=== PATIENT | female | born 1990 | race African-American/Black ===

== ENCOUNTER 2018-04-17 12:41 | Emergency (ER) | payer OTHER, SELFPAY ==
--- NOTE | 2018-04-17 14:09 | ER ---
Nurse's Notes [facility] Name: Deep Deng Age: 28 yrs Sex: Female : 1990 Arrival Date: 04/17/2018 Time: 12:43 Bed 6 Private MD: None, None Diagnosis: Cough;Acute upper respiratory infection, unspecified Presentation: 04/17 12:47 Presenting complaint: Patient states: i started having congestion x 2 days; cough and hj body aches; reports fever yesterday; reports core throat; took Robitussin today;. Transition of care: patient was not received from another setting of care. Resp Distress? No respiratory distress is noted at this time. Onset of symptoms was April 17, 2018. Risk Assessment: Do you want to hurt yourself or someone else? Patient reports no desire to harm self or others. Initial Sepsis Screen: Does the patient meet any 2 criteria? No. Patient's initial sepsis screen is negative. Does the patient have a suspected source of infection? No. Patient's initial sepsis screen is negative. Care prior to arrival: None. 12:47 Method Of Arrival: Ambulatory 12:47 Acuity: CHRISTIAN 4 hj Triage Assessment: 12:49 General: Appears in no apparent distress. uncomfortable, Behavior is calm, cooperative, hj appropriate for age. Pain: Complains of pain in bosy aches. 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 - Social history:: Smoking status: Patient/guardian denies using tobacco, Patient/guardian denies using alcohol. - Ebola Screening: : Patient negative for fever greater than or equal to 101.5 degrees Fahrenheit, and additional compatible Ebola Virus Disease symptoms Patient denies exposure to infectious person Patient denies travel to an Ebola-affected area in the 21 days before illness onset. - Family history:: not pertinent. - Hospitalizations: : No recent hospitalization is reported. Screenin:50 Abuse screen: Denies threats or abuse. Denies injuries from another. Nutritional hj screening: No deficits noted. Tuberculosis screening: No symptoms or risk factors identified. Fall Risk None identified. Assessment: 12:50 Cardiovascular: Capillary refill < 3 seconds Patient's skin is warm and dry. hj 13:22 General: Appears in no apparent distress. Behavior is calm, cooperative, appropriate tw2 for age. Neuro: Level of Consciousness is awake, alert, obeys commands, Oriented to person, place, time, situation. Cardiovascular: Heart tones S1 S2 Patient's skin is warm and dry. Respiratory: Airway is patent Respiratory effort is even, unlabored, Respiratory pattern is regular, symmetrical, Breath sounds are clear bilaterally. Respiratory: Reports cough that is. GI: No signs and/or symptoms were reported involving the gastrointestinal system. : No signs and/or symptoms were reported regarding the genitourinary system. EENT: Reports nasal congestion nasal discharge. Derm: No signs and/or symptoms reported regarding the dermatologic system. Musculoskeletal: Range of motion: intact in all extremities. 13:57 Reassessment: Patient appears in no apparent distress at this time. No changes from tw2 previously documented assessment. Patient and/or family updated on plan of care and expected duration. Pain level reassessed. Patient is alert, oriented x 3, equal unlabored respirations, skin warm/dry/pink. Vital Signs: 12:50 BP 147 / 69; Pulse 90; Resp 18; Temp 100.4(O); Pulse Ox 100% on R/A; Weight 127.01 kg; hj Height 5 ft. 7 in. (170.18 cm); Pain 4/10; 13:56 BP 147 / 90; Pulse 81; Resp 17; Pulse Ox 98% on R/A; tw2 13:57 Temp 98.6(O); tw2 12:50 Body Mass Index 43.86 (127.01 kg, 170.18 cm) ED Course: 12:43 Patient arrived in ED. sb2 12:43 None, None is Private Physician. sb2 12:49 Triage completed. hj 12:50 Arm band placed on right wrist. hj 12:52 Patient has correct armband on for positive identification. Bed in low position. Call light in reach. Side rails up X 1. 13:10 Tay Lorenzo MD is Attending Physician. rn 13:17 Laura Hernandez RN is Primary Nurse. tw2 14:11 No provider procedures requiring assistance completed. Patient did not have IV access tw2 during this emergency room visit. Administered Medications: No medications were administered Outcome: 14:08 Discharge ordered by . rn 14:11 Discharged to home ambulatory. tw2 14:11 Condition: stable 14:11 Discharge instructions given to patient, Instructed on discharge instructions, follow up and referral plans. Demonstrated understanding of instructions, follow-up care. 14:12 Patient left the ED. tw2 Signatures: Tay Lorenzo MD MD rn Joaquin, Henry, RN RN hj Wise, Tara, RN RN tw2 Funmi Payton sb2 Corrections: (The following items were deleted from the chart) 12:52 12:50 Pulse 90bpm; Resp 18bpm; Pulse Ox 100% RA; Temp 100.4F Oral; 127.01 kg; Height 5 hj ft. 7 in.; BMI: 43.8; Pain 4/10; hj
--- NOTE | 2018-04-17 14:09 | EDPHYS ---
Physician Documentation [facility] Name: Deep Deng Age: 28 yrs Sex: Female : 1990 Arrival Date: 04/17/2018 Time: 12:43 Bed 6 Private MD: None, None ED Physician Tay Lorenzo HPI: 04/17 14:00 This 28 yrs old Black Female presents to ER via Ambulatory with complaints of Painful rn Cough, Congestion. 14:00 The patient or guardian reports cough. Onset: The symptoms/episode began/occurred 2 rn day(s) ago. Severity of symptoms: At their worst the symptoms were mild, in the emergency department the symptoms are unchanged. Modifying factors: The symptoms are alleviated by nothing, the symptoms are aggravated by nothing. Associated signs and symptoms: Pertinent positives: fever, rhinorrhea, sore throat. The patient has experienced similar episodes in the past. The patient has not recently seen a physician. 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 - Social history:: Smoking status: Patient/guardian denies using tobacco, Patient/guardian denies using alcohol. - Ebola Screening: : Patient negative for fever greater than or equal to 101.5 degrees Fahrenheit, and additional compatible Ebola Virus Disease symptoms Patient denies exposure to infectious person Patient denies travel to an Ebola-affected area in the 21 days before illness onset. - Family history:: not pertinent. - Hospitalizations: : No recent hospitalization is reported. ROS: 14:00 Constitutional: Negative for weight loss Eyes: Negative for injury, pain, redness, and supervisor modern languages, Neck: Negative for injury, pain, and swelling, Cardiovascular: Negative for chest pain, palpitations, and edema, Respiratory: Negative for wheezing, and pleuritic chest pain, Abdomen/GI: Negative for abdominal pain, nausea, vomiting, diarrhea, and constipation, MS/Extremity: Negative for injury and deformity, Skin: Negative for injury, rash, and discoloration, Neuro: Negative for headache, weakness, numbness, tingling, and seizure. Exam: 14:00 Constitutional: This is a well developed, well nourished patient who is awake, alert, rn and in no acute distress. Head/Face: Normocephalic, atraumatic. Eyes: Pupils equal round and reactive to light, extra-ocular motions intact. Lids and lashes normal. Conjunctiva and sclera are non-icteric and not injected. Cornea within normal limits. Periorbital areas with no swelling, redness, or edema. ENT: mild pharyngeal erythema Neck: Trachea midline, no thyromegaly or masses palpated, and no cervical lymphadenopathy. Supple, full range of motion without nuchal rigidity, or vertebral point tenderness. No Meningismus. Abdomen/GI: soft, non-tender Skin: Warm, dry with normal turgor. Normal color with no rashes, no lesions, and no evidence of cellulitis. MS/ Extremity: Pulses equal, no cyanosis. Neurovascular intact. Full, normal range of motion. Equal circumference. Neuro: Awake and alert, GCS 15, oriented to person, place, time, and situation. Vital Signs: 12:50 BP 147 / 69; Pulse 90; Resp 18; Temp 100.4(O); Pulse Ox 100% on R/A; Weight 127.01 kg; hj Height 5 ft. 7 in. (170.18 cm); Pain 4/10; 13:56 BP 147 / 90; Pulse 81; Resp 17; Pulse Ox 98% on R/A; tw2 13:57 Temp 98.6(O); tw2 12:50 Body Mass Index 43.86 (127.01 kg, 170.18 cm) hj MDM: 13:10 Patient medically screened. rn 14:00 Differential Diagnosis: Bronchitis Influenza Upper Respiratory Infection Viral rn Syndrome. Data reviewed: vital signs, nurses notes, lab test result(s), and as a result, I will discharge patient. Counseling: I had a detailed discussion with the patient and/or guardian regarding: the historical points, exam findings, and any diagnostic results supporting the discharge/admit diagnosis, lab results, the need for outpatient follow up, to return to the emergency department if symptoms worsen or persist or if there are any questions or concerns that arise at home. Special discussion: I discussed with the patient/guardian in detail that at this point there is no indication for admission to the hospital. It is understood, however, that if the symptoms persist or worsen the patient needs to return immediately for re-evaluation. 04/17 12:52 Order name: Flu; Complete Time: 13:23 04/17 12:52 Order name: Strep; Complete Time: 13:23 04/17 13:19 Order name: Throat Culture EDMS Administered Medications: No medications were administered Disposition: 04/17/18 14:08 Discharged to Home. Impression: Cough, Acute upper respiratory infection, unspecified. - Condition is Stable. - Discharge Instructions: Upper Respiratory Infection, Adult, Viral Respiratory Infection, Form - Return To Work. - Medication Reconciliation Form, Thank You Letter, Antibiotic Education, Prescription Opioid Use, Work release form form. - Follow up: Private Physician; When: As needed; Reason: Recheck today's complaints, Re-evaluation by your physician. - Problem is an ongoing problem. - Symptoms have improved. Signatures: Dispatcher [employer] EDMS Tay Lorenzo MD MD rn Joaquin, Henry, RN RN hj Wise, Tara, RN RN tw2 Corrections: (The following items were deleted from the chart) 14:03 14:00 Constitutional: This is a well developed, well nourished patient who is awake, rn alert, and in no acute distress. Head/Face: Normocephalic, atraumatic. Eyes: Pupils equal round and reactive to light, extra-ocular motions intact. Lids and lashes normal. Conjunctiva and sclera are non-icteric and not injected. Cornea within normal limits. Periorbital areas with no swelling, redness, or edema. ENT: mild pharyngeal erythema Neck: Trachea midline, no thyromegaly or masses palpated, and no cervical lymphadenopathy. Supple, full range of motion without nuchal rigidity, or vertebral point tenderness. No Meningismus. Abdomen/GI: soft, non-tender Skin: Warm, dry with normal turgor. Normal color with no rashes, no lesions, and no evidence of cellulitis. MS/ Extremity: Pulses equal, no cyanosis. Neurovascular intact. Full, normal range of motion. Equal circumference. rn 14:12 14:08 04/17/2018 14:08 Discharged to Home. Impression: Cough; Acute upper respiratory tw2 infection, unspecified. Condition is Stable. Discharge Instructions: Form - Return To Work. Forms are Medication Reconciliation Form, Thank You Letter, Antibiotic Education, Prescription Opioid Use. Follow up: Private Physician; When: As needed; Reason: Recheck today's complaints, Re-evaluation by your physician. Problem is an ongoing problem. Symptoms have improved. rn
[2018-04-17 17:05] VITALS: BP 147/90; O2SAT 98
[2018-04-17 17:06] VITALS: TEMP 98.6
== END 2018-04-17 14:12 | disposition home or self-care (01) ==
LOC: ER 12:41
DX: J06.9 Acute upper respiratory infection, unspecified (principal)
CPT/HCPCS: 87070; 87081; 87804; 99281

== ENCOUNTER 2018-05-01 22:35 | Emergency (ER) | payer OTHER ==
--- OUTSIDE RECORDS SUMMARY | 2018-05-01 22:37 | XMS REPORT ---
:1990 [facility] Address [address] [place] [address] [address] [place] [address] Care Team Providers Name Role Phone Unavailable Unavailable Unavailable Problems This patient has no known problems. Allergies, Adverse Reactions, Alerts This patient has no known allergies or adverse reactions. Medications This patient has no known medications.
[2018-05-01 23:53] LABS: Absolute Lymphocytes (CBC) 2.9 K/uL (0.7-4.9); Absolute Monocytes 0.7 K/uL (0.1-1.3); Absolute Neutrophil 5.9 K/uL (1.8-8.0); Basophils % 0.4 % (0-1.3); Eosinophils % 3.9 % (0-4.4); Hematocrit 34.2 % (36.0-45.0); Lymphocytes % 29.2 % (15.3-44.8); MPV 10.4 fL (7.6-11.3); Monocytes % 6.8 % (3.3-12.3); RBC Red Blood Cell Count 4.03 M/uL (3.86-4.86)
[2018-05-02 00:02] LABS: Protime INR 1.03
[2018-05-02 00:15] LABS: ALT/SGPT 30 U/L (12-78); AST/SGOT 15 U/L (15-37); Albumin 2.9 g/dL (3.4-5.0); Alkaline Phosphatase 119 U/L (45-117); BUN Blood Urea Nitrogen 18 mg/dL (7-18); Bicarbonate 25 mmol/L (21-32); Bilirubin Direct 0.1 mg/dL (0-0.2); Bilirubin Total 0.2 mg/dL (0.2-1.0); Glucose Level 91 mg/dL (74-106); Magnesium 1.9 mg/dL (1.8-2.4); NT PRO-BNP 23 pg/mL (<125); Potassium 3.5 mmol/L (3.5-5.1); Protein, Total 6.4 g/dL (6.4-8.2); Sodium Level 141 mmol/L (136-145); Troponin (Emerg Dept Use Only) < 0.02 ng/mL (0.0-0.045)
--- NOTE | 2018-05-02 01:12 | ER ---
Nurse's Notes [facility] Name: Deep Deng Age: 28 yrs Sex: Female : 1990 Arrival Date: 05/01/2018 Time: 22:38 Bed 28 Private MD: Diagnosis: Chest pain, unspecified Presentation: 05/01 22:44 Presenting complaint: Patient states: Intermittent chest pain that began today; States lp1 "I feel the pain go down my chest when I take a deep breath"; Denies any nausea, vomiting, shortness of breath. Transition of care: patient was not received from another setting of care. Onset of symptoms was May 01, 2018. Risk Assessment: Do you want to hurt yourself or someone else? Patient reports no desire to harm self or others. Initial Sepsis Screen: Does the patient meet any 2 criteria? No. Patient's initial sepsis screen is negative. Does the patient have a suspected source of infection? No. Patient's initial sepsis screen is negative. Care prior to arrival: None. 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 - Social history:: Smoking status: Patient uses tobacco products, smokes one-half pack cigarettes per day. - Ebola Screening: : No symptoms or risks identified at this time. Screenin:46 Abuse screen: Denies threats or abuse. Denies injuries from another. Nutritional lp1 screening: No deficits noted. Tuberculosis screening: No symptoms or risk factors identified. Fall Risk None identified. Assessment: 22:46 General: Appears in no apparent distress. uncomfortable, Behavior is calm, cooperative. rv Pain: Complains of pain in chest Pain radiates to abdomen Pain began gradually. Neuro: Level of Consciousness is awake, alert, obeys commands, Oriented to person, place, time, situation. Cardiovascular: Capillary refill < 3 seconds Rhythm is regular. Respiratory: Airway is patent. GI: No signs and/or symptoms were reported involving the gastrointestinal system. : No signs and/or symptoms were reported regarding the genitourinary system. EENT: No signs and/or symptoms were reported regarding the EENT system. Derm: Skin is intact. Musculoskeletal: No signs and/or symptoms reported regarding the musculoskeletal system. 05/02 00:38 Reassessment: Patient appears in no apparent distress at this time. rv Vital Signs: 05/01 22:45 Weight 127.01 kg; Height 5 ft. 6 in. (167.64 cm); Pain 6/10; lp1 05/02 00:00 BP 148 / 85; Pulse 78; Resp 18; Pulse Ox 100% on R/A; rv 00:30 BP 169 / 98; Pulse 81; Resp 18; Pulse Ox 100% on R/A; rv 01:00 BP 139 / 54; Pulse 76; Resp 19; Pulse Ox 100% on R/A; rv 05/01 22:45 Body Mass Index 45.19 (127.01 kg, 167.64 cm) lp1 ED Course: 05/01 22:38 Patient arrived in ED. es 22:45 Triage completed. lp1 22:46 Arm band placed on left wrist. lp1 22:47 Patient has correct armband on for positive identification. Placed in gown. Bed in low rv position. Call light in reach. Side rails up X 1. alarm security or surveillance monitor on. Pulse ox on. NIBP on. 22:48 Patient maintains SpO2 saturation greater than 95% on room air. rv 23:34 Rajat Washington MD is Attending Physician. tw4 05/02 00:41 Inserted saline lock: 20 gauge in left antecubital area, using aseptic technique. lt1 01:12 Chau Uribe MD is Referral Physician. tw4 01:36 No provider procedures requiring assistance completed. rv 01:38 IV discontinued, bleeding controlled, No redness/swelling at site. Pressure dressing rv applied. 04:42 XRAY Chest (1 view) In Process Unspecified. EDMS Administered Medications: No medications were administered Outcome: 01:11 Discharge ordered by . tw4 01:38 Discharged to home ambulatory. rv 01:38 Condition: good 01:38 Discharge instructions given to patient, family, Instructed on discharge instructions, follow up and referral plans. Demonstrated understanding of instructions, follow-up care. 01:38 Patient left the ED. rv Signatures: Dispatcher [employer] Wilma Navarro Laura, RN RN lp1 Rajat Washington MD MD tw4 Evan Willingham RN RN rv Christine Sahu 1
--- NOTE | 2018-05-02 01:12 | EDPHYS ---
Physician Documentation [facility] Name: Deep Deng Age: 28 yrs Sex: Female : 1990 Arrival Date: 05/01/2018 Time: 22:38 Bed 28 Private MD: ED Physician Rajat Washington HPI: 05/02 05:46 This 28 yrs old Black Female presents to ER via Ambulatory with complaints of Chest tw4 Pain. 05:46 The patient or guardian reports chest pain that is located primarily in the anterior tw4 chest wall, left. The pain does not radiate. Associated signs and symptoms: The patient has no apparent associated signs or symptoms. The chest pain is described as sharp. Duration: The patient or guardian reports a single episode, that lasted 10 minute(s). Severity of pain: At its worst the pain was mild in the emergency department the pain has resolved. The patient has not experienced similar symptoms in the past. 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 - Social history:: Smoking status: Patient uses tobacco products, smokes one-half pack cigarettes per day. - Ebola Screening: : No symptoms or risks identified at this time. ROS: 05/02 05:46 Constitutional: Negative for fever, chills, and weight loss, Eyes: Negative for injury, tw4 pain, redness, and discharge, Respiratory: Negative for shortness of breath, cough, wheezing, and pleuritic chest pain, Abdomen/GI: Negative for abdominal pain, nausea, vomiting, diarrhea, and constipation, Back: Negative for injury and pain. MS/Extremity: Negative for injury and deformity, Skin: Negative for injury, rash, and discoloration. Cardiovascular: Positive for chest pain, Negative for edema, orthopnea, palpitations. Exam: 05:49 Constitutional: This is a well developed, well nourished patient who is awake, alert, tw4 and in no acute distress. Head/Face: Normocephalic, atraumatic. Cardiovascular: Regular rate and rhythm with a normal S1 and S2. No gallops, murmurs, or rubs. Normal PMI, no JVD. No pulse deficits. Respiratory: Lungs have equal breath sounds bilaterally, clear to auscultation and percussion. No rales, rhonchi or wheezes noted. No increased work of breathing, no retractions or nasal flaring. Abdomen/GI: Soft, non-tender, with normal bowel sounds. No distension or tympany. No guarding or rebound. No evidence of tenderness throughout. Back: No spinal tenderness. No costovertebral tenderness. Full range of motion. 05:49 Neuro: Awake and alert, GCS 15, oriented to person, place, time, and situation. Cranial nerves II-XII grossly intact. Motor strength 5/5 in all extremities. Sensory grossly intact. Cerebellar exam normal. Normal gait. Vital Signs: 05/01 22:45 Weight 127.01 kg; Height 5 ft. 6 in. (167.64 cm); Pain 6/10; lp1 05/02 00:00 BP 148 / 85; Pulse 78; Resp 18; Pulse Ox 100% on R/A; rv 00:30 BP 169 / 98; Pulse 81; Resp 18; Pulse Ox 100% on R/A; rv 01:00 BP 139 / 54; Pulse 76; Resp 19; Pulse Ox 100% on R/A; rv 05/01 22:45 Body Mass Index 45.19 (127.01 kg, 167.64 cm) lp1 MDM: 05/01 23:34 Patient medically screened. tw4 05/02 05:49 Differential diagnosis: acute pericarditis, anxiety, cholecystitis, Cholelithiasis tw4 gastroesophageal reflux disease (GERD), herpes zoster, Maria Eugenia-Beck syndrome. INGRID Risk Score: TOTAL SCORE = 0. Data reviewed: vital signs, nurses notes. 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 Counseling: I had a detailed discussion with the patient and/or guardian regarding: the historical points, exam findings, and any diagnostic results supporting the discharge/admit diagnosis. Special discussion: Based on the patient's history, exam, and Dx evaluation, there is no indication for emergent intervention or inpatient Tx. It is understood by the patient/guardian that if the Sx's persist or worsen they need to return immediately for re-evaluation. I discussed with the patient/guardian in detail that at this point there is no indication for admission to the hospital. It is understood, however, that if the symptoms persist or worsen the patient needs to return immediately for re-evaluation. 05/01 23:35 Order name: Basic Metabolic Panel; Complete Time: 01:08 05/02 01:08 Interpretation: Normal except: CL 108; GFR 60. 05/01 23:35 Order name: CBC with Diff; Complete Time: 01:08 05/02 01:08 Interpretation: Normal except: HGB 11.1; MCV 84.7; HCT 34.2; RDW 16.7. 05/01 23:35 Order name: LFT's 05/01 23:35 Order name: Magnesium 05/01 23:35 Order name: NT PRO-BNP 05/01 23:35 Order name: PT-INR 05/01 23:35 Order name: Troponin (emerg Dept Use Only); Complete Time: 01:09 05/02 01:09 Interpretation: Normal except: TROPED < 0.02. 05/01 23:35 Order name: XRAY Chest (1 view) 05/01 23:35 Order name: EKG; Complete Time: 23:36 05/01 23:35 Order name: Cardiac monitoring; Complete Time: 23:57 05/01 23:35 Order name: EKG - Nurse/Tech; Complete Time: 23:57 05/01 23:35 Order name: IV Saline Lock; Complete Time: 23:57 05/01 23:35 Order name: Labs collected and sent; Complete Time: 23:57 05/01 23:35 Order name: O2 Per Protocol; Complete Time: 23:57 05/01 23:35 Order name: O2 Sat Monitoring; Complete Time: 23:57 EC:49 Rhythm is regular. QRS [place] is Normal. VT interval is normal. QRS interval is normal. tw4 QT interval is normal. No Q waves. T waves are Normal. No ST changes noted. Clinical impression: Normal ECG. Interpreted by me. Reviewed by me. Administered Medications: No medications were administered Disposition: 05/02/18 01:11 Discharged to Home. Impression: Chest pain, unspecified. - Condition is Stable. - Discharge Instructions: Nonspecific Chest Pain, Pain Without a Known Cause. - Work release form, Medication Reconciliation Form, Thank You Letter, Antibiotic Education, Prescription Opioid Use form. - Follow up: Private Physician; When: Upon discharge from the Emergency Department; Reason: If symptoms return, Recheck today's complaints, Continuance of care. Follow up: Chau Uribe MD; When: Upon discharge from the Emergency Department; Reason: If symptoms return, Recheck today's complaints, Continuance of care. - Problem is new. - Symptoms have improved. Signatures: Dispatcher [employer] EDMS Leesa Pereyra RN RN lp1 Rajat Washington MD MD tw4 Evan Willingham RN RN rv Corrections: (The following items were deleted from the chart) 01:08 01:08 HGB 11.1; MCV 84.7; HCT 34.2; RDW 16.7. tw4 tw4 01:12 01:11 05/02/2018 01:11 Discharged to Home. Impression: Chest pain, unspecified. tw4 Condition is Stable. Forms are Medication Reconciliation Form, Thank You Letter, Antibiotic Education, Prescription Opioid Use. Follow up: Private Physician; When: Upon discharge from the Emergency Department; Reason: If symptoms return, Recheck today's complaints, Continuance of care. Problem is new. Symptoms have improved. tw4 01:38 01:12 05/02/2018 01:11 Discharged to Home. Impression: Chest pain, unspecified. rv Condition is Stable. Discharge Instructions: Nonspecific Chest Pain, Pain Without a Known Cause. Forms are Medication Reconciliation Form, Thank You Letter, Antibiotic Education, Prescription Opioid Use. Follow up: Private Physician; When: Upon discharge from the Emergency Department; Reason: If symptoms return, Recheck today's complaints, Continuance of care. Follow up: Chau Uribe; When: Upon discharge from the Emergency Department; Reason: If symptoms return, Recheck today's complaints, Continuance of care. Problem is new. Symptoms have improved. tw4
[2018-05-02 02:50] VITALS: O2SAT 100
[2018-05-02 02:52] VITALS: BP 139/54
--- NOTE | 2018-05-02 08:10 | RAD REPORT ---
EXAM DESCRIPTION: Brittanie Single View05/02/2018 4:41 am CLINICAL HISTORY: Chest pain COMPARISON: none FINDINGS: The lungs appear clear of acute infiltrate. The heart is normal size IMPRESSION: No acute abnormalities displayed
--- NOTE | 2018-05-02 19:49 | EKG ---
Test Date: 2018-05-01 Test Time: 22:47:30 Chemistry Professor: TAVON MEASUREMENT RESULTS: Intervals: Rate: 75 WY: 138 QRSD: 78 QT: 396 QTc: 442 [place]: P: 64 WY: 138 QRS: 31 T: 29 INTERPRETIVE STATEMENTS: Normal sinus rhythm Normal ECG Compared to ECG 02/12/1996 11:12:00 Early repolarization no longer present Electronically Signed On 05-02-18 19:45:53 ADULT CAREGIVER by Braxton Alexander
== END 2018-05-02 01:38 | disposition home or self-care (01) ==
LOC: ER 22:35
DX: R07.9 Chest pain, unspecified (principal); I10 Essential (primary) hypertension; F17.210 Nicotine dependence, cigarettes, uncomplicated; Z79.899 Other long term (current) drug therapy
CPT/HCPCS: 36415; 71045; 80048; 80076; 83735; 83880; 84484; 85025; 85610; 93005; 99284

== ENCOUNTER 2018-09-22 14:17 | Emergency (ER) | payer OTHER, SELFPAY ==
--- OUTSIDE RECORDS SUMMARY | 2018-09-22 14:19 | XMS REPORT ---
:1990 [facility] Address [address] [place] [address] Dr. Ack[address] [place] [address] Care Team Providers Name Role Phone Unavailable Unavailable Unavailable Problems This patient has no known problems. Allergies, Adverse Reactions, Alerts This patient has no known allergies or adverse reactions. Medications This patient has no known medications.
[2018-09-22 15:30] LABS: Urine Blood 1+ (NEG); Urine Glucose NEGATIVE (NEG); Urine Protein NEGATIVE (NEG)
[2018-09-22 15:50] LABS: Absolute Lymphocytes (CBC) 1.6 K/uL (0.7-4.9); Absolute Monocytes 0.7 K/uL (0.1-1.3); Absolute Neutrophil 6.9 K/uL (1.8-8.0); Basophils % 0.5 % (0-1.3); Eosinophils % 1.2 % (0-4.4); Hematocrit 40.2 % (36.0-45.0); Lymphocytes % 16.9 % (15.3-44.8); MPV 10.4 fL (7.6-11.3); Monocytes % 7.7 % (3.3-12.3)
[2018-09-22 16:14] LABS: BUN Blood Urea Nitrogen 12 mg/dL (7-18); Bicarbonate 23 mmol/L (21-32); Glucose Level 80 mg/dL (74-106); NT PRO-BNP 46 pg/mL (<125); Potassium 3.4 mmol/L (3.5-5.1); Sodium Level 138 mmol/L (136-145); Troponin (Emerg Dept Use Only) < 0.02 ng/mL (0.0-0.045)
--- NOTE | 2018-09-22 16:14 | RAD REPORT ---
EXAM DESCRIPTION: RAD - Chest Single View - 09/22/2018 3:11 pm CLINICAL HISTORY: CHEST PAIN Chest pain. COMPARISON: ABDOMINAL EXAM LIMITED dated 01/01/2011bdomen Pelvis Wo Contrast dated 09/22/2018Chest Single View dated 05/01/2018 FINDINGS: Portable technique limits examination quality. Soft tissue artifact is prominent. The lungs are grossly clear. The heart is normal in size. No displaced fractures. IMPRESSION: No acute intrathoracic process suspected.
--- NOTE | 2018-09-22 16:43 | ER ---
Nurse's Notes [facility] Name: Deep Deng Age: 28 yrs Sex: Female : 1990 Arrival Date: 09/22/2018 Time: 14:28 Bed 8 Private MD: Diagnosis: Chest pain, unspecified Presentation: 09/22 14:28 Presenting complaint: Patient states: INTERMITTENT CP SINCE LAST PM, REPRODUCIBLE WITH bp INSPIRATION. Transition of care: CARE HOME. Onset of symptoms was September 21, 2018 at 21:00. Risk Assessment: Do you want to hurt yourself or someone else? Patient reports no desire to harm self or others. Initial Sepsis Screen: Does the patient meet any 2 criteria? No. Patient's initial sepsis screen is negative. Does the patient have a suspected source of infection? No. Patient's initial sepsis screen is negative. Care prior to arrival: None. 14:28 Method Of Arrival: Law Enforcement: [employer] bp 14:28 Acuity: CHRISTIAN 3 bp Triage Assessment: 14:28 General: Appears in no apparent distress. comfortable, obese, Behavior is cooperative, bp appropriate for age, anxious. Pain: Complains of pain in chest. EENT: No deficits noted. Neuro: Oriented to person, place, time, situation, Appropriate for age. Cardiovascular: No deficits noted. Rhythm is sinus rhythm. Respiratory: Airway is patent Respiratory effort is even, unlabored, Respiratory pattern is regular, symmetrical. GI: No signs and/or symptoms were reported involving the gastrointestinal system. : No signs and/or symptoms were reported regarding the genitourinary system. Derm: No deficits noted. Musculoskeletal: Circulation, motion, and sensation intact. Range of motion: intact in all extremities. 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 - Social history:: Smoking status: Patient/guardian denies using tobacco. - Ebola Screening: : No symptoms or risks identified at this time. Screenin:51 Abuse screen: Denies threats or abuse. Denies injuries from another. Nutritional bp screening: No deficits noted. Tuberculosis screening: No symptoms or risk factors identified. Fall Risk None identified. Assessment: 14:28 General: SEE TRIAGE NOTE. bp 16:05 Reassessment: ALL CURRENT ORDERS COMPLETED, RESULTS PENDING. bp 17:20 Reassessment: PT D/C WITH [facility], DX WITH NONSPECIFIC CHEST PAIN. bp Vital Signs: 14:28 BP 159 / 89; Pulse 80; Resp 17; Temp 98; Pulse Ox 100% ; Weight 131.54 kg; Height 5 ft. bp 7 in. (170.18 cm); 16:04 BP 158 / 96; Pulse 78; Resp 16; Pulse Ox 100% ; bp 17:19 BP 161 / 88; Pulse 74; Resp 16; Temp 98; Pulse Ox 100% ; bp 14:28 Body Mass Index 45.42 (131.54 kg, 170.18 cm) bp ED Course: 14:28 Patient arrived in ED. iw 14:28 Arm band placed on. bp 14:30 Inserted saline lock: 22 gauge in right antecubital area, using aseptic technique. bp Blood collected. 14:32 Hamlet Frank MD is Attending Physician. 14:33 Sam Mckenna, ALISON is Primary Nurse. bp 14:38 Triage completed. bp 14:51 Patient has correct armband on for positive identification. Bed in low position. Call bp light in reach. Side rails up X2. Adult w/ patient. PD AT B/S. 15:11 XRAY Chest (1 view) In Process Unspecified. EDMS 16:30 Basic Metabolic Panel Sent. bp 17:21 No provider procedures requiring assistance completed. IV discontinued, intact, bp bleeding controlled, No redness/swelling at site. Pressure dressing applied. Administered Medications: No medications were administered Outcome: 16:43 Discharge ordered by . gs 17:21 Discharged to Law Enforcement bp 17:21 Condition: stable 17:21 Discharge instructions given to patient, Instructed on discharge instructions, follow up and referral plans. medication usage, Demonstrated understanding of instructions, follow-up care, medications. 17:22 Patient left the ED. bp Signatures: Dispatcher [employer] EDMS Rowan Louis RN RN iw Hamlet Frank MD MD gs Peltier, Brian, RN RN bp
--- NOTE | 2018-09-22 16:43 | EDPHYS ---
Physician Documentation [facility] Name: Deep Deng Age: 28 yrs Sex: Female : 1990 Arrival Date: 09/22/2018 Time: 14:28 Bed 8 Private MD: ED Physician Hamlet Frank HPI: 09/22 17:09 This 28 yrs old Black Female presents to ER via Law Enforcement with complaints of gs Chest Pain. 17:09 The patient or guardian reports chest pain that is located primarily in the anterior gs chest wall. The pain does not radiate. Associated signs and symptoms: Pertinent negatives: diaphoresis, shortness of breath. The chest pain is described as a heaviness. Duration: The patient or guardian reports multiple episodes, that wax and wane, with no pattern, the episodes last approximately 2 minute(s). Modifying factors: The symptoms are alleviated by nothing. the symptoms are aggravated by nothing. Severity of pain: At its worst the pain was moderate in the emergency department the pain has improved markedly. The patient has experienced similar episodes in the past, a few times. 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 - Social history:: Smoking status: Patient/guardian denies using tobacco. - Ebola Screening: : No symptoms or risks identified at this time. ROS: 17:09 All other systems are negative. gs Exam: 17:09 Head/Face: Normocephalic, atraumatic. Eyes: Pupils equal round and reactive to light, gs extra-ocular motions intact. Lids and lashes normal. Conjunctiva and sclera are non-icteric and not injected. Cornea within normal limits. Periorbital areas with no swelling, redness, or edema. ENT: Nares patent. No nasal discharge, no septal abnormalities noted. Tympanic membranes are normal and external auditory canals are clear. Oropharynx with no redness, swelling, or masses, exudates, or evidence of obstruction, uvula midline. Mucous membranes moist. Neck: Trachea midline, no thyromegaly or masses palpated, and no cervical lymphadenopathy. Supple, full range of motion without nuchal rigidity, or vertebral point tenderness. No Meningismus. Chest/axilla: Normal chest wall appearance and motion. Nontender with no deformity. No lesions are appreciated. Cardiovascular: Regular rate and rhythm with a normal S1 and S2. No gallops, murmurs, or rubs. Normal PMI, no JVD. No pulse deficits. Respiratory: Lungs have equal breath sounds bilaterally, clear to auscultation and percussion. No rales, rhonchi or wheezes noted. No increased work of breathing, no retractions or nasal flaring. Abdomen/GI: Soft, non-tender, with normal bowel sounds. No distension or tympany. No guarding or rebound. No evidence of tenderness throughout. Back: No spinal tenderness. No costovertebral tenderness. Full range of motion. Skin: Warm, dry with normal turgor. Normal color with no rashes, no lesions, and no evidence of cellulitis. MS/ Extremity: Pulses equal, no cyanosis. Neurovascular intact. Full, normal range of motion. Neuro: Awake and alert, GCS 15, oriented to person, place, time, and situation. Cranial nerves II-XII grossly intact. Motor strength 5/5 in all extremities. Sensory grossly intact. Cerebellar exam normal. Normal gait. 17:09 Constitutional: The patient appears alert, awake. 17:09 ECG was reviewed by the Attending Physician. Vital Signs: 14:28 BP 159 / 89; Pulse 80; Resp 17; Temp 98; Pulse Ox 100% ; Weight 131.54 kg; Height 5 ft. bp 7 in. (170.18 cm); 16:04 BP 158 / 96; Pulse 78; Resp 16; Pulse Ox 100% ; bp 17:19 BP 161 / 88; Pulse 74; Resp 16; Temp 98; Pulse Ox 100% ; bp 14:28 Body Mass Index 45.42 (131.54 kg, 170.18 cm) bp MDM: 14:37 Patient medically screened. gs 17:09 Differential diagnosis: abnormal EKG, acute myocardial infarction, chest wall pain. gs Data reviewed: vital signs, nurses notes. Counseling: I had a detailed discussion with the patient and/or guardian regarding: the historical points, exam findings, and any diagnostic results supporting the discharge/admit diagnosis, the need for outpatient follow up. Response to treatment: the patient's symptoms have resolved after treatment, the patient's pain is gone. 09/22 14:41 Order name: Basic Metabolic Panel gs 09/22 14:41 Order name: CBC with Diff; Complete Time: 16:24 gs 09/22 14:41 Order name: NT PRO-BNP; Complete Time: 16:24 gs 09/22 14:41 Order name: Troponin (emerg Dept Use Only); Complete Time: 16:24 gs 09/22 14:42 Order name: Basic Metabolic Panel; Complete Time: 16:24 EDMS 09/22 15:19 Order name: Urine Dipstick--Ancillary (enter results); Complete Time: 16:24 ms 09/22 14:41 Order name: XRAY Chest (1 view); Complete Time: 16:24 gs 09/22 14:41 Order name: EKG; Complete Time: 14:42 gs 09/22 14:41 Order name: Cardiac monitoring; Complete Time: 14:53 gs 09/22 14:41 Order name: EKG - Nurse/Tech; Complete Time: 14:53 gs 09/22 14:41 Order name: IV Saline Lock; Complete Time: 15:40 gs 09/22 14:41 Order name: Labs collected and sent; Complete Time: 15:40 gs 09/22 14:41 Order name: O2 Per Protocol; Complete Time: 14:53 gs 09/22 15:19 Order name: Urine --Ancillary (enter results); Complete Time: 16:24 ms 09/22 14:41 Order name: O2 Sat Monitoring; Complete Time: 14:53 gs EC:09 Rate is 74 beats/min. Rhythm is regular. AK interval is normal. QRS interval is normal. gs QT interval is normal. T waves are Normal. No ST changes noted. Clinical impression: Normal ECG. Interpreted by me. Administered Medications: No medications were administered Disposition: 09/22/18 16:43 Discharged to Home. Impression: Chest pain, unspecified. - Condition is Stable. - Discharge Instructions: Nonspecific Chest Pain. - Prescriptions for Norvasc 5 mg Oral Tablet - take 1 tablet by ORAL route once daily; 15 tablet. - Medication Reconciliation Form, Thank You Letter, Antibiotic Education, Prescription Opioid Use form. - Follow up: Private Physician; When: 1 - 2 days; Reason: Re-evaluation by your physician. Signatures: Dispatcher [employer] Hamlet Rajput MD MD gs Peltier, Brian, RN RN bp Corrections: (The following items were deleted from the chart) 17:22 16:43 09/22/2018 16:43 Discharged to Home. Impression: Chest pain, unspecified. bp Condition is Stable. Forms are Medication Reconciliation Form, Thank You Letter, Antibiotic Education, Prescription Opioid Use. Follow up: Private Physician; When: 1 - 2 days; Reason: Re-evaluation by your physician. gs
[2018-09-22 17:47] VITALS: TEMP 98; O2SAT 100
[2018-09-22 17:49] VITALS: BP 161/88
--- NOTE | 2018-09-23 10:37 | EKG ---
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
== END 2018-09-22 17:22 | disposition home or self-care (01) ==
LOC: ER 14:17
DX: R07.9 Chest pain, unspecified (principal); I10 Essential (primary) hypertension
CPT/HCPCS: 36415; 71045; 80048; 81003; 81025; 83880; 84484; 85025; 93005; 99284

== ENCOUNTER 2019-08-02 11:36 | Emergency (ER) | payer OTHER, SELFPAY ==
--- OUTSIDE RECORDS SUMMARY | 2019-08-02 11:38 | XMS REPORT ---
:1990 Author Organization [facility] t Address [address] [place] [address] Dr. Ack[address] [place] [address] Care Team Providers Name Role Phone Unavailable Unavailable Unavailable Problems This patient has no known problems. Allergies, Adverse Reactions, Alerts This patient has no known allergies or adverse reactions. Medications This patient has no known medications.
[2019-08-02] MEDS ORDERED: METOCLOPRAMIDE 10 MG/2mL INJ ONE (13:47)
[2019-08-02] MEDS ORDERED: NA CHLORIDE 0.9% 1,000 ML ONE (13:48)
[2019-08-02] MEDS ORDERED: DIPHENHYDRAMINE 50 MG/ML VIAL ONE (13:48)
[2019-08-02] MEDS ORDERED: KETOROLAC 30 MG/ML INJ ONE (13:48)
--- NOTE | 2019-08-02 14:34 | EDPHYS ---
Physician Documentation [facility] Name: Deep Deng Age: 29 yrs Sex: Female : 1990 Arrival Date: 08/02/2019 Time: 11:39 Bed 18 Private MD: ED Physician Fernando Guerra HPI: 08/01 13:25 This 29 yrs old Black Female presents to ER via Ambulatory with complaints of High ms3 Blood Pressure, Nausea, Headache. 13:25 The patient complains of pain to the forehead. The patient describes the headache as ms3 aching, constant. Onset: The symptoms/episode began/occurred 1 day(s) ago. Associated signs and symptoms: Pertinent negatives: altered mental status, dizziness, fever, nausea, Photophobia vomiting, weakness. Severity of symptoms: in the emergency department the pain is unchanged. Headache History: The patient has had previous headaches and this one is similar to previous episodes. The symptoms are alleviated by nothing. the symptoms are aggravated by nothing. 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 - Social history:: Smoking status: Patient reports the use of cigarette tobacco products, denies chronic smoking, but will smoke occasionally. - Family history:: not pertinent. ROS: 13:25 Constitutional: Negative for fever, and chills. Eyes: Negative for injury, pain, ms3 redness, and discharge, ENT: Negative for injury, pain, and discharge, Neck: Negative for injury, pain, and swelling, Cardiovascular: Negative for chest pain, and palpitations. Respiratory: Negative for shortness of breath, cough, wheezing, and pleuritic chest pain, Abdomen/GI: Negative for abdominal pain, nausea, vomiting, diarrhea, and constipation, Back: Negative for injury and pain, MS/Extremity: Negative for injury and deformity, Skin: Negative for injury, rash, and discoloration. 13:25 Neuro: Positive for headache. Exam: 13:25 Constitutional: This is a well developed, well nourished patient who is awake, alert, ms3 and in no acute distress. Head/Face: Normocephalic, atraumatic. Eyes: Pupils equal round and reactive to light, extra-ocular motions intact. Lids and lashes normal. Conjunctiva and sclera are non-icteric and not injected. Cornea within normal limits. Periorbital areas with no swelling, redness, or edema. ENT: Nares patent. No nasal discharge, no septal abnormalities noted. Mucous membranes moist. Chest/axilla: Normal chest wall appearance and motion. Nontender with no deformity. Cardiovascular: Regular rate and rhythm with a normal S1 and S2. No gallops, murmurs, or rubs. Normal PMI, no JVD. No pulse deficits. Respiratory: Lungs have equal breath sounds bilaterally, clear to auscultation and percussion. No rales, rhonchi or wheezes noted. No increased work of breathing, no retractions or nasal flaring. Abdomen/GI: Soft, non-tender, with normal bowel sounds. No distension or tympany. No guarding or rebound. No evidence of tenderness throughout. 13:25 Neuro: Exam negative for acute changes, focal neuro deficits, motor deficits, sensory deficits, cerebellar deficits, dizziness, Orientation: is normal, Mentation: is normal, Memory: is normal, Cranial nerves: CN II- XII are normal as tested, Cerebellar function: is grossly normal, Motor: is normal, Sensation: is normal, Gait: is steady, at a normal pace. Vital Signs: 11:59 Pulse 92; Resp 16; Temp 96.8; Pulse Ox 100% on R/A; Weight 139.71 kg; Height 5 ft. 7 iw in. (170.18 cm); Pain 6/10; 12:00 BP 158 / 86; iw 12:53 BP 165 / 88 LA (auto/lg); Pulse 91; Resp 18; Temp 96.7(TE); Pulse Ox 100% on R/A; Pain jp3 6/10; 14:49 BP 143 / 80; Pulse 92; Resp 15; Pulse Ox 100% ; bp 11:59 Body Mass Index 48.24 (139.71 kg, 170.18 cm) iw MDM: 13:02 Patient medically screened. ms3 13:25 Data reviewed: vital signs, nurses notes. ED course: Discussed Head CT with pt. Pt ms3 declines at this time and would like medication to make her headache go away. IV NS, Reglan, Toradol, and Benadryl ordered.. 14:35 ED course: Pt improved, nad, non-toxic, neuro intact, a/o x4. Pt to follow up with her ms3 PMD in 1-2 days for re-evaluation. Pt understands/ agrees with plan. All questions answered. Return precautions discussed. . Administered Medications: 13:25 Drug: Sodium Chloride 0.9% 1000 ml Route: IVPB; Site: right antecubital; bp 15:08 Follow up: IV Status: Completed infusion; IV Intake: 1000ml bp 13:25 Drug: Reglan 10 mg Route: IVP; Site: right antecubital; bp 15:09 Follow up: Response: Pain is decreased bp 13:25 Drug: Benadryl 25 mg Route: IVP; Site: right antecubital; bp 15:09 Follow up: Response: Pain is decreased bp 13:25 Drug: TORadol - Ketorolac 15 mg Route: IVP; Site: right antecubital; bp 15:09 Follow up: Response: Pain is decreased bp Disposition: 14:36 Co-signature as Attending Physician, Fernando Guerra DO. ms3 Disposition: 08/02/19 14:34 Discharged to Home. Impression: Headache, Hypertension. - Condition is Stable. - Discharge Instructions: General Headache Without Cause. - Medication Reconciliation Form, Thank You Letter, Antibiotic Education, Prescription Opioid Use form. - Follow up: Private Physician; When: 1 - 2 days; Reason: Re-evaluation by your physician. Signatures: Rowan Louis RN RN iw Peltier, Brian, RN RN bp Sims, Marcus, DO DO ms3 Corrections: (The following items were deleted from the chart) 15:09 14:34 08/02/2019 14:34 Discharged to Home. Impression: Headache; Hypertension. bp Condition is Stable. Forms are Medication Reconciliation Form, Thank You Letter, Antibiotic Education, Prescription Opioid Use. Follow up: Private Physician; When: 1 - 2 days; Reason: Re-evaluation by your physician. ms3
--- NOTE | 2019-08-02 14:34 | ER ---
Nurse's Notes [facility] Name: Deep Deng Age: 29 yrs Sex: Female : 1990 Arrival Date: 08/02/2019 Time: 11:39 Bed 18 Private MD: Diagnosis: Headache;Hypertension Presentation: 08/01 12:00 Chief complaint: Patient states: BP was reading 223/117 at home since yesterday , was iw sent home from work yesterday, has had headache X 2 days, was feeling nauseated and light headed, takes nifedipine 30mg daily for BP, took it today. Coronavirus screen: Proceed with normal triage. Patient denies a cough. Patient denies shortness of breath or difficulty breathing. Patient denies measured and/or subjective temperature greater than 100.4F prior to today's visit. Patient denies travel on a cruise ship or to a country the [facility] currently lists as an affected area. Patient denies contact with known and/or suspected case of COVID-19. Ebola Screen: Patient negative for fever greater than or equal to 101.5 degrees Fahrenheit, and additional compatible Ebola Virus Disease symptoms Patient denies exposure to infectious person. Patient denies travel to an Ebola-affected area in the 21 days before illness onset. No symptoms or risks identified at this time. Initial Sepsis Screen: Does the patient meet any 2 criteria? No. Patient's initial sepsis screen is negative. Does the patient have a suspected source of infection? No. Patient's initial sepsis screen is negative. Risk Assessment: Do you want to hurt yourself or someone else? Patient reports no desire to harm self or others. Onset of symptoms was August 01, 2019. 12:00 Method Of Arrival: Ambulatory iw 12:00 Acuity: CHRISTIAN 3 iw Triage Assessment: 12:00 General: Appears in no apparent distress. uncomfortable, obese, Behavior is bp cooperative, appropriate for age, anxious. Pain: Complains of pain in head. EENT: No deficits noted. Neuro: Reports headache. Cardiovascular: No deficits noted. Respiratory: No deficits noted. GI: Reports nausea. : No signs and/or symptoms were reported regarding the genitourinary system. Derm: No deficits noted. Musculoskeletal: No deficits noted. 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 - Social history:: Smoking status: Patient reports the use of cigarette tobacco products, denies chronic smoking, but will smoke occasionally. - Family history:: not pertinent. Screenin:05 Abuse screen: Denies threats or abuse. Denies injuries from another. Nutritional bp screening: No deficits noted. Tuberculosis screening: No symptoms or risk factors identified. Fall Risk None identified. Assessment: 12:00 General: SEE TRIAGE NOTE. bp 14:00 Reassessment: S/S RELIEVED AT THIS TIME, PT RESTING QUIETLY. bp 15:07 Reassessment: PT D/C HOME AMBULATORY, DX WITH HEADACHE. GI: Abdomen is obese. bp Vital Signs: 11:59 Pulse 92; Resp 16; Temp 96.8; Pulse Ox 100% on R/A; Weight 139.71 kg; Height 5 ft. 7 iw in. (170.18 cm); Pain 6/10; 12:00 BP 158 / 86; iw 12:53 BP 165 / 88 LA (auto/lg); Pulse 91; Resp 18; Temp 96.7(TE); Pulse Ox 100% on R/A; Pain jp3 6/10; 14:49 BP 143 / 80; Pulse 92; Resp 15; Pulse Ox 100% ; bp 11:59 Body Mass Index 48.24 (139.71 kg, 170.18 cm) iw ED Course: 11:39 Patient arrived in ED. mr 12:02 Triage completed. iw 12:03 Arm band placed on. iw 12:51 Sam Mckenna, RN is Primary Nurse. bp 12:52 Fernando Guerra DO is Attending Physician. ms3 12:54 Bed in low position. Call light in reach. Side rails up X 1. Warm blanket given. Verbal jp3 reassurance given. Pulse ox on. NIBP on. 12:54 Patient maintains SpO2 saturation greater than 95% on room air. jp3 13:22 Inserted saline lock: 20 gauge in right antecubital area, using aseptic technique. jp3 15:07 No provider procedures requiring assistance completed. IV discontinued, intact, bp bleeding controlled, No redness/swelling at site. Pressure dressing applied. Administered Medications: 13:25 Drug: Sodium Chloride 0.9% 1000 ml Route: IVPB; Site: right antecubital; bp 15:08 Follow up: IV Status: Completed infusion; IV Intake: 1000ml bp 13:25 Drug: Reglan 10 mg Route: IVP; Site: right antecubital; bp 15:09 Follow up: Response: Pain is decreased bp 13:25 Drug: Benadryl 25 mg Route: IVP; Site: right antecubital; bp 15:09 Follow up: Response: Pain is decreased bp 13:25 Drug: TORadol - Ketorolac 15 mg Route: IVP; Site: right antecubital; bp 15:09 Follow up: Response: Pain is decreased bp Intake: 15:08 IV: 1000ml; Total: 1000ml. bp Outcome: 14:34 Discharge ordered by ms3 15:07 Discharged to home ambulatory. bp 15:07 Condition: stable 15:07 Discharge instructions given to patient, Instructed on discharge instructions, follow up and referral plans. Demonstrated understanding of instructions, follow-up care. 15:09 Patient left the ED. bp Signatures: Marcia Anthony Irene, RN RN iw Sam Mckenna RN RN bp Ras Valderrama jp3 Fernando Guerra DO DO ms3 Corrections: (The following items were deleted from the chart) 12:03 11:59 Pulse 92bpm; Resp 16bpm; Pulse Ox 100% RA; Temp 96.8F; iw iw 12:03 12:00 Chief complaint: Patient states: BP was reading 223/117 at home since yesterday , iw was sent home from work yesterday, has had headache X 2 days, takes nifedipine 30mg daily for BP, took it today iw
[2019-08-02 15:16] VITALS: O2SAT 100
[2019-08-02 15:18] VITALS: TEMP 96.7
[2019-08-02 15:20] VITALS: BP 143/80
== END 2019-08-02 15:09 | disposition home or self-care (01) ==
LOC: ER 11:36
DX: I10 Essential (primary) hypertension (principal); F17.210 Nicotine dependence, cigarettes, uncomplicated
CPT/HCPCS: 96365; 96366; 96375; 99284; J1200; J2765; J7030

== ENCOUNTER 2019-09-28 16:13 | Emergency (ER) | payer OTHER ==
--- OUTSIDE RECORDS SUMMARY | 2019-09-28 16:15 | XMS REPORT | Continuity of Care Document ---
:1990 Author Organization [facility] t Address [address] [place] [address] Dr. Ackerman [address] [place] [id number] Care Team Providers Name Role Phone Unavailable Unavailable Unavailable Problems This patient has no known problems. Allergies, Adverse Reactions, Alerts This patient has no known allergies or adverse reactions. Medications This patient has no known medications. Procedures This patient has no known procedures. Results This patient has no known results.
[2019-09-28] MEDS ORDERED: HYDROCODONE/APAP 10/325 TAB ONE (17:08)
--- NOTE | 2019-09-28 17:23 | RAD REPORT ---
EXAM DESCRIPTION: RAD - Knee Right 3 View - 09/28/2019 5:16 pm CLINICAL HISTORY: PAINtrip and fall, knee pain COMPARISON: No comparisons FINDINGS: No fracture, dislocation or periosteal reaction. Rounded calcific density is present in th e superolateral aspect of the patella. This is a typical of for a normal variant bipartite patella an d not fracture. Trace joint effusion seen. No joint space narrowing. No foreign body or other soft ti ssue abnormality. IMPRESSION: Trace joint effusion with no acute bone or joint finding seen. Clinical concerns for internal derangement or occult bony injury could be further assessed with MR im aging.
--- NOTE | 2019-09-28 17:44 | ER ---
Nurse's Notes [facility] Name: Deep Deng Age: 29 yrs Sex: Female : 1990 Arrival Date: 09/28/2019 Time: 16:16 Bed 15 Private MD: Diagnosis: Pain in right knee Presentation: 09/27 16:25 Chief complaint: Patient states: States she tripped last night. Right knee pain since. ll1 States she has bruising near left eye, denies LOC. Coronavirus screen: Proceed with normal triage. Patient denies a cough. Patient denies shortness of breath or difficulty breathing. Patient denies measured and/or subjective temperature greater than 100.4F prior to today's visit. Patient denies travel on a cruise ship or to a country the [facility] currently lists as an affected area. Patient denies contact with known and/or suspected case of COVID-19. Ebola Screen: Patient denies travel to an Ebola-affected area in the 21 days before illness onset. Initial Sepsis Screen: Does the patient meet any 2 criteria? No. Patient's initial sepsis screen is negative. Risk Assessment: Do you want to hurt yourself or someone else? Patient reports no desire to harm self or others. Onset of symptoms was September 27, 2019. 16:25 Method Of Arrival: Wheelchair ll1 16:25 Acuity: CHRISTIAN 3 ll1 17:12 Initial Sepsis Screen: Does the patient have a suspected source of infection? No. vc Patient's initial sepsis screen is negative. Historical: - Allergies: 16:28 No Known Allergies; ll1 - PMHx: 16:28 Hypertension; ll1 - Immunization history:: Adult Immunizations up to date. - Social history:: Smoking status: Patient reports the use of cigarette tobacco products, denies chronic smoking, but will smoke occasionally, Patient uses alcohol, only on a social basis. Patient/guardian denies using street drugs. Screenin:11 Abuse screen: Denies threats or abuse. Nutritional screening: No deficits noted. vc Tuberculosis screening: No symptoms or risk factors identified. Fall Risk None identified. Assessment: 17:10 General: Appears in no apparent distress. uncomfortable, obese, Behavior is calm, vc cooperative, appropriate for age. Pain: Complains of pain in right knee Pain does not radiate. Neuro: Level of Consciousness is awake, alert, obeys commands, Oriented to person, place, time, situation, none. Cardiovascular: Capillary refill < 3 seconds Patient's skin is warm and dry. Respiratory: Airway is patent Respiratory effort is even, unlabored, Respiratory pattern is regular, symmetrical. GI: No signs and/or symptoms were reported involving the gastrointestinal system. : No signs and/or symptoms were reported regarding the genitourinary system. Musculoskeletal: Range of motion: limited in right knee. Vital Signs: 16:25 BP 166 / 96; Pulse 87; Resp 18; Temp 97.5; Pulse Ox 100% ; Pain 8/10; ll1 ED Course: 16:16 Patient arrived in ED. bp1 16:28 Triage completed. ll1 16:28 Yon Singh NP is PHCP. pm1 16:28 Tyrone Silver MD is Attending Physician. pm1 16:28 Arm band placed on Patient placed in an exam room, on a stretcher. ll1 16:56 Macey Smith RN is Primary Nurse. vc 17:11 Patient has correct armband on for positive identification. Bed in low position. Call vc light in reach. 17:15 Knee Right 3 View XRAY In Process Unspecified. EDMS 17:50 Crutch training done. Knee immobilizer applied on right knee. ss 18:00 No provider procedures requiring assistance completed. Patient did not have IV access vc during this emergency room visit. Administered Medications: 17:09 Drug: [place] 10 mg-325 mg 1 tabs Route: PO; vc 17:49 Follow up: Response: No adverse reaction vc Outcome: 17:43 Discharge ordered by MD. pm1 18:00 Discharged to home ambulatory. vc 18:00 Condition: good 18:00 Discharge instructions given to patient, Instructed on discharge instructions, follow vc up and referral plans. Demonstrated understanding of instructions, follow-up care. 18:01 Patient left the ED. vc Signatures: Dispatcher [employer] EDUT Tasneem Amaro RN RN Yon Singh NP INTERNATIONAL STUDENT ADVISOR pm1 Macey Smith RN RN vc Linda Jett RN RN 1 Donya Gomez bp1
--- NOTE | 2019-09-28 17:44 | EDPHYS ---
Physician Documentation [facility] Name: Deep Deng Age: 29 yrs Sex: Female : 1990 Arrival Date: 09/28/2019 Time: 16:16 Bed 15 Private MD: ED Physician Tyrone Silver HPI: 09/27 16:42 This 29 yrs old Black Female presents to ER via Wheelchair with complaints of Fall pm1 Injury, Right knee pain. 16:42 The patient presents with pain, that is acute. The complaints affect the right knee. pm1 Context: The problem was sustained at home, resulted from Patient tripped and landed on her right knee, the patient can partially bear weight, Problem is a result from a previous injury: No. Onset: The symptoms/episode began/occurred last night. Modifying factors: The symptoms are alleviated by remaining still, the symptoms are aggravated by movement, weight bearing, bending knee. Associated signs and symptoms: Pertinent negatives calf tenderness, fever, numbness, tingling. Treatment prior to arrival includes: no previous treatment. Severity of symptoms: in the emergency department the symptoms are actually worse. The patient has not experienced similar symptoms in the past. Patient tripped last night and landed on her right knee. Patient reports abrasions to her face but denies any pain. No headache, neck pain, LOC. Historical: - Allergies: 16:28 No Known Allergies; ll1 - PMHx: 16:28 Hypertension; ll1 - Immunization history:: Adult Immunizations up to date. - Social history:: Smoking status: Patient reports the use of cigarette tobacco products, denies chronic smoking, but will smoke occasionally, Patient uses alcohol, only on a social basis. Patient/guardian denies using street drugs. ROS: 16:42 Constitutional: Negative for fever, chills, and weight loss, Neck: Negative for injury, pm1 pain, and swelling, Cardiovascular: Negative for chest pain, palpitations, and edema, Respiratory: Negative for shortness of breath, cough, wheezing, and pleuritic chest pain, Abdomen/GI: Negative for abdominal pain, nausea, vomiting, diarrhea, and constipation, Back: Negative for injury and pain, Neuro: Negative for headache, weakness, numbness, tingling, and seizure. 16:42 MS/extremity: Positive for pain, of the right knee. 16:42 Skin: Positive for abrasion(s), of the face. Exam: 16:42 Constitutional: This is a well developed, well nourished patient who is awake, alert, pm1 and in no acute distress. Neck: Trachea midline, no thyromegaly or masses palpated, and no cervical lymphadenopathy. Supple, full range of motion without nuchal rigidity, or vertebral point tenderness. No Meningismus. 16:42 Head/face: Noted is no obvious of injury or deformity except abrasion(s), that are mild, of the right cheek and left cheek. 16:42 Cardiovascular: Exam negative for acute changes, Rate: normal, Rhythm: regular, Pulses: no pulse deficits are appreciated. 16:42 Respiratory: Exam negative for acute changes, respiratory distress, shortness of breath. 16:42 Musculoskeletal/extremity: Extremities: grossly normal except: noted in the right knee: tenderness, trace swelling, There is no evidence of deformity. Vital Signs: 16:25 BP 166 / 96; Pulse 87; Resp 18; Temp 97.5; Pulse Ox 100% ; Pain 8/10; ll1 MDM: 16:28 Patient medically screened. pm1 17:42 Data reviewed: vital signs. Data interpreted: Pulse oximetry: on room air is 100 %. pm1 Interpretation: normal. Counseling: I had a detailed discussion with the patient and/or guardian regarding: the historical points, exam findings, and any diagnostic results supporting the discharge/admit diagnosis, radiology results, the need for outpatient follow up, a orthopedic surgeon, to return to the emergency department if symptoms worsen or persist or if there are any questions or concerns that arise at home. 09/27 16:41 Order name: Knee Right 3 View XRAY; Complete Time: 17:42 pm1 09/27 16:41 Order name: Knee Immobilizer; Complete Time: 17:49 pm1 09/27 16:41 Order name: Crutches; Complete Time: 17:09 pm1 Administered Medications: 17:09 Drug: [place] 10 mg-325 mg 1 tabs Route: PO; vc 17:49 Follow up: Response: No adverse reaction vc Disposition: 09/28 04:30 Co-signature as Attending Physician, Tyrone Silver MD I agree with the assessment and kdr plan of care. Disposition: 09/28/19 17:43 Discharged to Home. Impression: Pain in right knee. - Condition is Stable. - Discharge Instructions: Crutch Use, Knee Immobilizer, Knee Pain. - Prescriptions for Tylenol- Codeine #3 300-30 mg Oral Tablet - take 2 tablets by ORAL route every 6 hours As needed; 20 tablet. Diclofenac Sodium 75 mg Oral Tablet, Delayed Release (E.C.) - take 1 tablet by ORAL route 2 times per day As needed; 30 tablet. - Medication Reconciliation Form, Thank You Letter, Antibiotic Education, Prescription Opioid Use form. - Follow up: Emergency Department; When: As needed; Reason: Worsening of condition. Follow up: Private Physician; When: 2 - 3 days; Reason: Recheck today's complaints, Continuance of care, Re-evaluation by your physician. - Problem is new. - Symptoms have improved. Signatures: Dispatcher [employer] EDMS Tyrone Silver MD MD kdr Marinas, Patrick, KITCHEN HELP HANDYMAN KITCHEN HELP HANDYMAN pm1 Macey Smith RN RN vc Lewis, Lynsay, RN RN ll1 Corrections: (The following items were deleted from the chart) 09/27 18:01 17:43 09/28/2019 17:43 Discharged to Home. Impression: Pain in right knee. Condition is vc Stable. Forms are Medication Reconciliation Form, Thank You Letter, Antibiotic Education, Prescription Opioid Use. Follow up: Emergency Department; When: As needed; Reason: Worsening of condition. Follow up: Private Physician; When: 2 - 3 days; Reason: Recheck today's complaints, Continuance of care, Re-evaluation by your physician. Problem is new. Symptoms have improved. pm1
[2019-09-28 18:08] VITALS: BP 166/96; TEMP 97.5; O2SAT 100
== END 2019-09-28 18:01 | disposition home or self-care (01) ==
LOC: ER 16:13
DX: M25.561 Pain in right knee (principal); I10 Essential (primary) hypertension; F17.210 Nicotine dependence, cigarettes, uncomplicated; W01.0XXA Fall on same level from slipping, tripping and stumbling without subsequent striking against object, initial encounter; Y93.9 Activity, unspecified; Y92.009 Unspecified place in unspecified non-institutional (private) residence as the place of occurrence of the external cause
CPT/HCPCS: 99283

== ENCOUNTER 2020-04-04 13:13 | Emergency (ER) | payer SELFPAY ==
--- OUTSIDE RECORDS SUMMARY | 2020-04-04 13:16 | XMS REPORT | Continuity of Care Document ---
:1990 Author Organization [facility] t Address [address] [place] [address] Dr. Ackerman [address] [place] [address] Care Team Providers Name Role Phone Unavailable Unavailable Unavailable Problems This patient has no known problems. Allergies, Adverse Reactions, Alerts This patient has no known allergies or adverse reactions. Medications This patient has no known medications. Procedures This patient has no known procedures. Results This patient has no known results.
--- NOTE | 2020-04-04 16:27 | RAD REPORT ---
EXAM DESCRIPTION: RAD - Chest Single View - 04/04/2020 4:21 pm CLINICAL HISTORY: SWELLING Chest pain. FINDINGS: Portable technique limits examination quality. The lungs are grossly clear. The heart is normal in size. No displaced fractures. IMPRESSION: No acute intrathoracic process suspected.
[2020-04-04 17:20] LABS: Absolute Lymphocytes (CBC) 1.9 K/uL (0.7-4.9); Basophils % 0.7 % (0-1.3); Hematocrit 38.7 % (36.0-45.0); Lymphocytes % 18.4 % (15.3-44.8); MPV 10.9 fL (7.6-11.3); RBC Red Blood Cell Count 4.32 M/uL (3.86-4.86)
[2020-04-04 17:22] LABS: Protime INR 0.97
[2020-04-04 17:33] LABS: ALT/SGPT 49 U/L (12-78); AST/SGOT 30 U/L (15-37); Albumin 3.3 g/dL (3.4-5.0); Alkaline Phosphatase 142 U/L (45-117); BUN Blood Urea Nitrogen 15 mg/dL (7-18); Bicarbonate 25 mmol/L (21-32); Bilirubin Direct < 0.1 mg/dL (0-0.2); Bilirubin Total 0.2 mg/dL (0.2-1.0); Glucose Level 114 mg/dL (74-106); Magnesium 2.2 mg/dL (1.8-2.4); NT PRO-BNP 43 pg/mL (<125); Protein, Total 7.2 g/dL (6.4-8.2); Sodium Level 139 mmol/L (136-145); Troponin (Emerg Dept Use Only) < 0.02 ng/mL (0.0-0.045)
[2020-04-04] MEDS ORDERED: METOPROLOL TARTRATE 5 MG/5 ML INJ IV ONE (17:53)
--- NOTE | 2020-04-04 17:56 | ER ---
Nurse's Notes [facility] Name: Deep Deng Age: 30 yrs Sex: Female : 1990 Arrival Date: 04/04/2020 Time: 13:14 Bed 15 Private MD: Diagnosis: Essential (primary) hypertension Presentation: 04/04 13:50 Chief complaint: Patient states: Patient states she started to get lightheaded at work. ja1 C/O headache. Took her blood pressure and it was reading 222/119. Also states both ankles are swollen. Was told to come to ER. Coronavirus screen: Client denies travel out of the [place] in the last 14 days. cough unrelated to allergies, The client reports previous COVID testing was negative. Date of collection: March 31, 2020. Ebola Screen: No symptoms or risks identified at this time. Initial Sepsis Screen: Does the patient meet any 2 criteria? Systolic BP < 90 mmHg. No. Patient's initial sepsis screen is negative. Does the patient have a suspected source of infection? No. Patient's initial sepsis screen is negative. Risk Assessment: Do you want to hurt yourself or someone else? Patient reports no desire to harm self or others. Onset of symptoms was April 04, 2020. 13:50 Method Of Arrival: Ambulatory [facility] 13:50 Acuity: CHRISTIAN 2 aa5 THERAPEUTIC ASSISTANT: 19:23 LMP 03/14/2020 ca1 Historical: - Allergies: 14:00 No Known Allergies; ja1 - PMHx: 14:00 Hypertension; ja1 - Immunization history:: Adult Immunizations up to date. - Social history:: Smoking status: Patient reports the use of cigarette tobacco products, denies chronic smoking, but will smoke occasionally. Screenin:15 Abuse screen: Denies threats or abuse. Denies injuries from another. Nutritional ca1 screening: No deficits noted. Tuberculosis screening: No symptoms or risk factors identified. Fall Risk IV access (20 points). Assessment: 16:15 General: Appears in no apparent distress. comfortable, Behavior is calm, cooperative, ca1 appropriate for age. Pain: Denies pain. Neuro: Level of Consciousness is awake, alert, obeys commands, Oriented to person, place, time, situation, Reports dizziness. Cardiovascular: Reports lightheadedness, Heart tones S1 S2 present Capillary refill < 3 seconds Patient's skin is warm and dry. Rhythm is sinus rhythm. Respiratory: Airway is patent Respiratory effort is even, unlabored, Respiratory pattern is regular, symmetrical, Breath sounds are clear bilaterally. GI: Abdomen is flat, round non-distended, obese, Bowel sounds present X 4 quads. Abd is soft and non tender X 4 quads. : No signs and/or symptoms were reported regarding the genitourinary system. EENT: No signs and/or symptoms were reported regarding the EENT system. Derm: Skin is intact, is healthy with good turgor, Skin is pink, warm \T\ dry. Musculoskeletal: Circulation, motion, and sensation intact. Capillary refill < 3 seconds. 17:15 Reassessment: Patient appears in no apparent distress at this time. Patient and/or ca1 family updated on plan of care and expected duration. Pain level reassessed. Patient is alert, oriented x 3, equal unlabored respirations, skin warm/dry/pink. 18:00 Reassessment: Patient appears in no apparent distress at this time. Patient is alert, ca1 oriented x 3, equal unlabored respirations, skin warm/dry/pink. Reassessment: Hydralazine unavailable at the ER pyxes. Requested from 2nd floor. 18:58 Reassessment: Patient appears in no apparent distress at this time. Patient and/or ca1 family updated on plan of care and expected duration. Pain level reassessed. Patient is alert, oriented x 3, equal unlabored respirations, skin warm/dry/pink. 19:22 Reassessment: Patient appears in no apparent distress at this time. Patient is alert, ca1 oriented x 3, equal unlabored respirations, skin warm/dry/pink. CHICO Prather says okay to discharge pt with current BP. Vital Signs: 13:50 BP 186 / 119; Pulse 82; Resp 18; Temp 97.4; Pulse Ox 98% ; ja1 15:59 BP 190 / 116; Pulse 98; aa5 16:53 BP 167 / 90; ca1 17:40 BP 172 / 107; Pulse 76; Resp 18 S; Pulse Ox 100% on R/A; ca1 18:21 BP 199 / 117; Pulse 77; Resp 21 S; Pulse Ox 100% on R/A; ca1 18:45 BP 181 / 101; Pulse 81; Resp 22 S; Pulse Ox 100% on R/A; ca1 19:06 BP 199 / 106; Pulse 73; Resp 20 S; Pulse Ox 100% on R/A; ca1 ED Course: 13:14 Patient arrived in ED. as 14:16 Triage completed. aa5 16:03 Yamilka Morris F[facility]-C [facility]. kb 16:03 Zafar Goldman MD is Attending Physician. kb 16:04 Michelle Perez, RN is Primary Nurse. ca1 16:15 Patient has correct armband on for positive identification. Bed in low position. Call ca1 light in reach. Side rails up X 1. monitoring engineer on. Pulse ox on. NIBP on. Door closed. Noise minimized. Lights dimmed. Warm blanket given. 16:20 Arm band placed on right wrist. ca1 16:21 XRAY Chest (1 view) In Process Unspecified. EDMS 16:53 Initial lab(s) drawn, by me, sent to lab. Missed attempt(s): 20 gauge in right ca1 antecubital area. Bleeding controlled, band aid applied, catheter tip intact. 17:40 Inserted saline lock: 20 gauge in left antecubital area, using aseptic technique. ca1 19:22 No provider procedures requiring assistance completed. IV discontinued, intact, ca1 bleeding controlled, No redness/swelling at site. Pressure dressing applied. Administered Medications: 17:42 Drug: Metoprolol 5 mg Route: IVP; Site: left antecubital; ca1 18:30 Follow up: Response: No adverse reaction; Blood pressure is unchanged ca1 18:45 Drug: HydrALAZINE 25 mg Route: PO; ca1 19:20 Follow up: Response: Blood pressure is unchanged ca1 Outcome: 17:55 Discharge ordered by . kb 19:23 Discharged to home ambulatory. ca1 19:23 Condition: stable 19:23 Discharge instructions given to patient, Instructed on discharge instructions, follow up and referral plans. medication usage, Demonstrated understanding of instructions, follow-up care, medications, Prescriptions given X 1. 19:24 Patient left the ED. ca1 Signatures: Dispatcher [employer] EDMS Yamilka Morris FNP-C FNP-Noris Lee Audri RN RN aa5 Bill Griffith RN RN ja1 Michelle Perez RN RN ca1 Corrections: (The following items were deleted from the chart) 14:05 13:50 BP 202 / 106; Pulse 82bpm; Resp 18bpm; Pulse Ox 98%; Temp 97.4F; ja1 ja1 19:12 19:01 BP 181 / 101; Pulse 81bpm; Resp 22bpm; Spontaneous; Pulse Ox 100% RA; ca1 ca1
--- NOTE | 2020-04-04 17:56 | EDPHYS ---
Physician Documentation [facility] Name: Deep Deng Age: 30 yrs Sex: Female : 1990 Arrival Date: 04/04/2020 Time: 13:14 Bed 15 Private MD: ED Physician Zafar Goldman HPI: 04/04 16:46 This 30 yrs old Black Female presents to ER via Ambulatory with complaints of High kb Blood Pressure, Ankle Swelling. 16:46 Pt reports she has had hypertension since she was 16 years old. States she was on kb metoprolol and lisinopril in the past, but they didn't work so they were going to try something else, but she didn't go back. Reports she was feeling lightheaded today so she checked her BP and it was high. States symptoms have resolved since then. Also reports bilateral lower extremity swelling for 3 days. 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 - Social history:: Smoking status: Patient reports the use of cigarette tobacco products, denies chronic smoking, but will smoke occasionally. ROS: 16:45 Constitutional: Negative for fever, chills, and weight loss, Respiratory: Negative for kb shortness of breath, cough, wheezing, and pleuritic chest pain, Abdomen/GI: Negative for abdominal pain, nausea, vomiting, diarrhea, and constipation, Back: Negative for injury and pain, MS/Extremity: Negative for injury and deformity, Skin: Negative for injury, rash, and discoloration. 16:45 Cardiovascular: Positive for edema. 16:46 Neuro: Positive for lightheadedness. kb Exam: 16:45 Constitutional: This is a well developed, well nourished patient who is awake, alert, kb and in no acute distress. Head/Face: Normocephalic, atraumatic. Chest/axilla: Normal chest wall appearance and motion. Nontender with no deformity. No lesions are appreciated. Respiratory: Lungs have equal breath sounds bilaterally, clear to auscultation and percussion. No rales, rhonchi or wheezes noted. No increased work of breathing, no retractions or nasal flaring. Abdomen/GI: Soft, non-tender, with normal bowel sounds. No distension or tympany. No guarding or rebound. No evidence of tenderness throughout. Skin: Warm, dry with normal turgor. Normal color with no rashes, no lesions, and no evidence of cellulitis. MS/ Extremity: Pulses equal, no cyanosis. Neurovascular intact. Full, normal range of motion. Neuro: Awake and alert, GCS 15, oriented to person, place, time, and situation. Cranial nerves II-XII grossly intact. Motor strength 5/5 in all extremities. Sensory grossly intact. Cerebellar exam normal. Normal gait. 16:45 Cardiovascular: Rate: normal, Rhythm: regular, Pulses: no pulse deficits are appreciated, Heart sounds: normal, Edema: pedal edema, that is mild. 17:55 ECG was reviewed by the Attending Physician. Vital Signs: 13:50 BP 186 / 119; Pulse 82; Resp 18; Temp 97.4; Pulse Ox 98% ; ja1 15:59 BP 190 / 116; Pulse 98; aa5 16:53 BP 167 / 90; ca1 17:40 BP 172 / 107; Pulse 76; Resp 18 S; Pulse Ox 100% on R/A; ca1 18:21 BP 199 / 117; Pulse 77; Resp 21 S; Pulse Ox 100% on R/A; ca1 18:45 BP 181 / 101; Pulse 81; Resp 22 S; Pulse Ox 100% on R/A; ca1 19:06 BP 199 / 106; Pulse 73; Resp 20 S; Pulse Ox 100% on R/A; ca1 MDM: 16:03 Patient medically screened. 16:45 Data reviewed: vital signs, nurses notes. Data interpreted: Pulse oximetry: on room air kb is 98 %. Interpretation: normal. 17:35 Counseling: I had a detailed discussion with the patient and/or guardian regarding: the kb historical points, exam findings, and any diagnostic results supporting the discharge/admit diagnosis, lab results, radiology results, the need for outpatient follow up, a family practitioner, to return to the emergency department if symptoms worsen or persist or if there are any questions or concerns that arise at home. 04/04 16:04 Order name: Basic Metabolic Panel; Complete Time: 17:34 kb 04/04 16:04 Order name: CBC with Diff; Complete Time: 17:25 kb 04/04 16:04 Order name: LFT's; Complete Time: 17:34 kb 04/04 16:04 Order name: Magnesium; Complete Time: 17:34 kb 04/04 16:04 Order name: NT PRO-BNP; Complete Time: 17:34 kb 04/04 16:04 Order name: PT-INR; Complete Time: 17:25 kb 04/04 16:04 Order name: Troponin (emerg Dept Use Only); Complete Time: 17:34 kb 04/04 16:04 Order name: XRAY Chest (1 view); Complete Time: 16:28 kb 04/04 16:04 Order name: EKG; Complete Time: 16:04 kb 04/04 16:04 Order name: Cardiac monitoring; Complete Time: 17:46 kb 04/04 16:04 Order name: EKG - Nurse/Tech; Complete Time: 17:46 kb 04/04 16:04 Order name: IV Saline Lock; Complete Time: 17:46 kb 04/04 16:04 Order name: Labs collected and sent; Complete Time: 16:58 kb 04/04 16:04 Order name: O2 Per Protocol; Complete Time: 16:58 kb 04/04 16:04 Order name: O2 Sat Monitoring; Complete Time: 16:58 kb EC:55 Rate is 74 beats/min. Rhythm is regular. QRS Robinson is Normal. CT interval is normal at kb 144 msec. QRS interval is normal at 78 msec. QT interval is normal at 428 msec. Administered Medications: 17:42 Drug: Metoprolol 5 mg Route: IVP; Site: left antecubital; ca1 18:30 Follow up: Response: No adverse reaction; Blood pressure is unchanged ca1 18:45 Drug: HydrALAZINE 25 mg Route: PO; ca1 19:20 Follow up: Response: Blood pressure is unchanged ca1 Disposition: 04/05 08:21 Co-signature as Attending Physician, Zafar Goldman MD I agree with the assessment and hao plan of care. Disposition: 04/04/20 17:55 Discharged to Home. Impression: Essential (primary) hypertension. - Condition is Stable. - Discharge Instructions: Hypertension, [id number]. - Prescriptions for Hydrochlorothiazide 25 mg Oral Tablet - take 1 tablet by ORAL route once daily .; 30 tablet. - Medication Reconciliation Form, Thank You Letter, Antibiotic Education, Prescription Opioid Use form. - Follow up: Emergency Department; When: As needed; Reason: Worsening of condition. Follow up: Private Physician; When: 2 - 3 days; Reason: Recheck today's complaints, Continuance of care, Re-evaluation by your physician. Signatures: Dispatcher [employer] EDMS Morris Yamilka, MANAGER AGRICULTURAL-C MANAGER AGRICULTURAL-Zafar Perkins MD MD cha Aguilar, Jose, RN RN ja1 Michelle Perez RN RN ca1 Corrections: (The following items were deleted from the chart) 04/04 16:46 16:45 Constitutional: Negative for fever, chills, and weight loss, Respiratory: kb Negative for shortness of breath, cough, wheezing, and pleuritic chest pain, Abdomen/GI: Negative for abdominal pain, nausea, vomiting, diarrhea, and constipation, Back: Negative for injury and pain, MS/Extremity: Negative for injury and deformity, Skin: Negative for injury, rash, and discoloration, Neuro: Negative for headache, weakness, numbness, tingling, and seizure, kb 19:24 17:55 04/04/2020 17:55 Discharged to Home. Impression: Essential (primary) ca1 hypertension. Condition is Stable. Discharge Instructions: Hypertension, [id number]. Prescriptions for Hydrochlorothiazide 25 mg Oral Tablet - take 1 tablet by ORAL route once daily .; 30 tablet. and Forms are Medication Reconciliation Form, Thank You Letter, Antibiotic Education, Prescription Opioid Use. Follow up: Emergency Department; When: As needed; Reason: Worsening of condition. Follow up: Private Physician; When: 2 - 3 days; Reason: Recheck today's complaints, Continuance of care, Re-evaluation by your physician. kb
[2020-04-04] MEDS ORDERED: HYDRALAZINE HCL 25 MG TABLET ONE (18:38)
[2020-04-04 19:28] VITALS: TEMP 97.4
[2020-04-04 19:32] VITALS: O2SAT 100
[2020-04-04 19:35] VITALS: BP 199/106
== END 2020-04-04 19:24 | disposition home or self-care (01) ==
LOC: ER 13:13
DX: I10 Essential (primary) hypertension (principal)
CPT/HCPCS: 36415; 71045; 80048; 80076; 83735; 83880; 84484; 85025; 85610; 93005; 96374; 99284

== ENCOUNTER 2020-08-24 17:28 | Emergency (ER) | payer SELFPAY ==
--- OUTSIDE RECORDS SUMMARY | 2020-08-24 17:30 | XMS REPORT | Continuity of Care Document ---
:1990 Author Organization [facility] t Address [address] [place] [address] [address] [place] [address] Care Team Providers Name Role Phone Unavailable Unavailable Unavailable Problems This patient has no known problems. Allergies, Adverse Reactions, Alerts This patient has no known allergies or adverse reactions. Medications This patient has no known medications. Procedures This patient has no known procedures. Results This patient has no known results.
[2020-08-24] MEDS ORDERED: DIPHENHYDRAMINE 25 MG TAB/CAP ONE (18:22)
[2020-08-24] MEDS ORDERED: dexAMETHasone 4 MG/ML VIAL ONE ×2 (18:22→18:28)
[2020-08-24] MEDS ORDERED: FAMOTIDINE 20 MG TAB ONE (18:22)
--- NOTE | 2020-08-24 18:52 | EDPHYS ---
Physician Documentation [facility] Name: Deep Deng Age: 30 yrs Sex: Female : 1990 Arrival Date: 08/24/2020 Time: 17:32 Bed IW3 Private MD: ED Physician Kim Rust HPI: 08/24 17:59 This 30 yrs old Black Female presents to ER via Ambulatory with complaints of Allergic pm1 Reaction, Facial Swelling. 17:59 The patient presents with swelling to face. Onset: The symptoms/episode began/occurred pm1 this morning. Associated signs and symptoms: Pertinent negatives: fever, shortness of breath, sore throat. Possible causes: The patient has no known obvious cause for the symptoms. At home the patient or guardian has treated the symptoms with Benadryl. Severity of symptoms: in the emergency department the symptoms are unchanged improved with Benadryl this morning but came back. The patient has not experienced similar symptoms in the past. The patient has not recently seen a physician. 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 - Social history:: Smoking status: Patient reports the use of cigarette tobacco products, denies chronic smoking, but will smoke occasionally. ROS: 17:59 Constitutional: Negative for fever, chills, and weight loss. pm1 17:59 ENT: Negative for injury, pain, and discharge, Neck: Negative for injury, pain, and swelling, Cardiovascular: Negative for chest pain, palpitations, and edema, Respiratory: Negative for shortness of breath, cough, wheezing, and pleuritic chest pain, Abdomen/GI: Negative for abdominal pain, nausea, vomiting, diarrhea, and constipation, Back: Negative for injury and pain, MS/Extremity: Negative for injury and deformity. 17:59 Neuro: Negative for headache, weakness, numbness, tingling, and seizure. 17:59 Eyes: Positive for bilateral eye lid swelling, Negative for discharge, pain, visual disturbance. 17:59 Skin: Positive for rash, of the face. Exam: 17:59 Constitutional: This is a well developed, well nourished patient who is awake, alert, pm1 and in no acute distress. Head/Face: Normocephalic, atraumatic. 17:59 MS/ Extremity: Pulses equal, no cyanosis. Neurovascular intact. Full, normal range of motion. 17:59 Eyes: Lids and lashes: swelling to bilateral upper eyelids. 17:59 ENT: Mouth: Lips: normal, Oral mucosa: normal, pink and intact, moist, Tongue: is normal, Posterior pharynx: is normal, airway is patent, Airway: no evidence of obstruction. 17:59 Cardiovascular: Exam negative for acute changes, Rate: normal, Rhythm: regular, Pulses: no pulse deficits are appreciated. 17:59 Respiratory: Exam negative for acute changes, respiratory distress, shortness of breath, Breath sounds: are clear throughout. 17:59 Skin: Appearance: normal except for affected area, consistent with urticaria, on the chin and right jaw. 17:59 Neuro: Orientation: is normal, Mentation: is normal, Motor: is normal, moves all fours. Vital Signs: 17:40 BP 176 / 92; Pulse 88; Resp 16 S; Temp 98.4; Pulse Ox 100% on R/A; Weight 127.01 kg ca1 (R); Height 5 ft. 7 in. (170.18 cm) (R); Pain 0/10; 19:02 BP 161 / 98; Pulse 80; Resp 20; Pulse Ox 99% on R/A; kg 17:40 Body Mass Index 43.85 (127.01 kg, 170.18 cm) ca1 MDM: 17:54 Patient medically screened. pm1 18:35 Data reviewed: vital signs. ma2 18:51 Counseling: I had a detailed discussion with the patient and/or guardian regarding: the pm1 historical points, exam findings, and any diagnostic results supporting the discharge/admit diagnosis, the need for outpatient follow up, an allergy/talent sourcing specialist, to return to the emergency department if symptoms worsen or persist or if there are any questions or concerns that arise at home. Administered Medications: 18:13 Drug: Decadron (dexamethasone) 10 mg Route: IM; Site: left deltoid; kg 19:01 Follow up: Response: No adverse reaction; Marked relief of symptoms kg 18:13 Drug: Benadryl (diphenhydrAMINE) 25 mg Route: PO; kg 19:01 Follow up: Response: No adverse reaction; Marked relief of symptoms kg 18:13 Drug: Pepcid (famotidine) 20 mg Route: PO; kg 19:01 Follow up: Response: No adverse reaction; Marked relief of symptoms kg Disposition: 18:34 Co-signature as Attending Physician, Kim Rust MD. ma2 Disposition: 08/24/20 18:52 Discharged to Home. Impression: Rash and other nonspecific skin eruption. - Condition is Stable. - Discharge Instructions: Rash. - Prescriptions for Benadryl 25 mg Oral Capsule - take 1 capsule by ORAL route every 6 hours As needed; 30 tablet. Pepcid 20 mg Oral Tablet - take 1 tablet by ORAL route every 12 hours for 10 days; 20 tablet. Medrol (Reg) 4 mg Oral Tablets, Dose Pack - take 1 tablet by ORAL route as directed - follow package instructions; 1 packet. - Medication Reconciliation Form, Thank You Letter, Antibiotic Education, Prescription Opioid Use form. - Follow up: Emergency Department; When: As needed; Reason: Worsening of condition. Follow up: Private Physician; When: 2 - 3 days; Reason: Recheck today's complaints, Continuance of care, Re-evaluation by your physician. - Problem is new. - Symptoms have improved. Signatures: Yon Singh, SHOVEL MECHANIC SHOVEL MECHANIC pm1 Kim Rust MD MD ma2 Michelle Perez RN RN ca1 Destiny Carias kg Corrections: (The following items were deleted from the chart) 19:03 18:52 08/24/2020 18:52 Discharged to Home. Impression: Rash and other nonspecific skin kg eruption. Condition is Stable. Forms are Medication Reconciliation Form, Thank You Letter, Antibiotic Education, Prescription Opioid Use. Follow up: Emergency Department; When: As needed; Reason: Worsening of condition. Follow up: Private Physician; When: 2 - 3 days; Reason: Recheck today's complaints, Continuance of care, Re-evaluation by your physician. Problem is new. Symptoms have improved. pm1
--- NOTE | 2020-08-24 18:52 | ER ---
Nurse's Notes [facility] Name: Deep Deng Age: 30 yrs Sex: Female : 1990 Arrival Date: 08/24/2020 Time: 17:32 Bed IW3 Private MD: Diagnosis: Rash and other nonspecific skin eruption Presentation: 08/24 17:40 Chief complaint: Patient states: Woke up this morning, my face swollen, my eyes ca1 swollen. I must have an allergic reaction to something, I don't know. But I can't think of anything that I did or ate that might have caused it. Took Benadryl x 2 at 1100, no relief. Denies difficulty swallowing or breathing. Coronavirus screen: Client denies travel out of the [place] in the last 14 days. At this time, the client does not indicate any symptoms associated with coronavirus-19. Ebola Screen: Patient negative for fever greater than or equal to 101.5 degrees Fahrenheit, and additional compatible Ebola Virus Disease symptoms Patient denies exposure to infectious person. Patient denies travel to an Ebola-affected area in the 21 days before illness onset. No symptoms or risks identified at this time. Initial Sepsis Screen: Does the patient meet any 2 criteria? No. Patient's initial sepsis screen is negative. Does the patient have a suspected source of infection? No. Patient's initial sepsis screen is negative. Risk Assessment: Do you want to hurt yourself or someone else? Patient reports no desire to harm self or others. 17:40 Method Of Arrival: Ambulatory ca1 17:40 Acuity: CHRISTIAN 4 ca1 17:43 Onset of symptoms was August 24, 2020. 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 - Social history:: Smoking status: Patient reports the use of cigarette tobacco products, denies chronic smoking, but will smoke occasionally. Screenin:23 Abuse screen: Denies threats or abuse. Denies injuries from another. Nutritional kg screening: No deficits noted. Tuberculosis screening: No symptoms or risk factors identified. Fall Risk None identified. No fall in past 12 months (0 pts). No secondary diagnosis (0 pts). No IV (0 pts). Ambulatory Aid- None/Bed Rest/Nurse Assist (0 pts). Gait- Normal/Bed Rest/Wheelchair (0 pts) Mental Status- Oriented to own ability (0 pts). Total Valero Fall Scale indicates No Risk (0-24 pts). Assessment: 18:00 General: Appears in no apparent distress. Behavior is calm, cooperative, appropriate kg for age, quiet. Pain: Denies pain. Neuro: No deficits noted. Level of Consciousness is awake, alert, obeys commands, Oriented to person, place, time, situation, Obstetric Assistant are equal bilaterally Moves all extremities. Speech is normal. Cardiovascular: No deficits noted. Heart tones S1 S2 Capillary refill < 3 seconds. Respiratory: No deficits noted. Airway is patent Breath sounds are clear bilaterally. GI: No deficits noted. : No deficits noted. EENT: Eyes Orbital swelling and slight swelling of face noted. . Derm: Rash noted that is raised, on forehead, right eye, right cheek, right ear, nose, left ear, left cheek, left eye, chin, right restorationist, left restorationist, right jaw and left jaw. Musculoskeletal: No deficits noted. 19:02 Reassessment: Patient states feeling better. Patient states symptoms have improved. kg Vital Signs: 17:40 BP 176 / 92; Pulse 88; Resp 16 S; Temp 98.4; Pulse Ox 100% on R/A; Weight 127.01 kg ca1 (R); Height 5 ft. 7 in. (170.18 cm) (R); Pain 0/10; 19:02 BP 161 / 98; Pulse 80; Resp 20; Pulse Ox 99% on R/A; kg 17:40 Body Mass Index 43.85 (127.01 kg, 170.18 cm) ca1 ED Course: 17:32 Patient arrived in ED. mr 17:43 Triage completed. ca1 17:44 Arm band placed on right wrist. ca1 17:53 Yon Singh NP is PHCP. pm1 17:53 Kim Rust MD is Attending Physician. pm1 17:54 Yon Singh NP is PHCP. pm1 18:00 Destiny Carias is Primary Nurse. kg 18:23 Patient has correct armband on for positive identification. Call light in reach. kg 19:02 No provider procedures requiring assistance completed. Patient did not have IV access kg during this emergency room visit. Administered Medications: 18:13 Drug: Decadron (dexamethasone) 10 mg Route: IM; Site: left deltoid; kg 19:01 Follow up: Response: No adverse reaction; Marked relief of symptoms kg 18:13 Drug: Benadryl (diphenhydrAMINE) 25 mg Route: PO; kg 19:01 Follow up: Response: No adverse reaction; Marked relief of symptoms kg 18:13 Drug: Pepcid (famotidine) 20 mg Route: PO; kg 19:01 Follow up: Response: No adverse reaction; Marked relief of symptoms kg Outcome: 18:52 Discharge ordered by MD. pm1 19:02 Discharged to home ambulatory. kg 19:02 Condition: good 19:02 Discharge instructions given to patient, Instructed on discharge instructions, follow up and referral plans. Demonstrated understanding of instructions, follow-up care, medications, Prescriptions given X 3. 19:03 Patient left the ED. kg Signatures: Marcia Anthony LisaYon aguirre, SCALE AND SKIP CAR OPERATOR SCALE AND SKIP CAR OPERATOR pm1 Michelle Perez RN RN ca1 Destiny Carias kg
[2020-08-24 19:27] VITALS: BP 161/98; O2SAT 99
[2020-08-24 19:29] VITALS: TEMP 98.4
== END 2020-08-24 19:03 | disposition home or self-care (01) ==
LOC: ER 17:28
DX: R21 Rash and other nonspecific skin eruption (principal); F17.210 Nicotine dependence, cigarettes, uncomplicated; I10 Essential (primary) hypertension; R22.0 Localized swelling, mass and lump, head
CPT/HCPCS: 96372; 99283; J1100

== ENCOUNTER 2020-08-27 10:51 | Emergency (ER) | payer SELFPAY ==
--- OUTSIDE RECORDS SUMMARY | 2020-08-27 10:53 | XMS REPORT | Continuity of Care Document ---
:1990 Author Organization [facility] t Address [address] [place] [address] Care Team Providers Name Role Phone Unavailable Unavailable Unavailable Problems This patient has no known problems. Allergies, Adverse Reactions, Alerts This patient has no known allergies or adverse reactions. Medications This patient has no known medications. Procedures This patient has no known procedures. Results This patient has no known results.
[2020-08-27] MEDS ORDERED: METHYLPREDNISOLONE 125 MG INJ ONE (12:06)
[2020-08-27] MEDS ORDERED: hydrOXYzine HCL 25 MG TAB ONE (12:06)
--- NOTE | 2020-08-27 12:11 | EDPHYS ---
Physician Documentation [facility] Name: Deep Deng Age: 30 yrs Sex: Female : 1990 Arrival Date: 08/27/2020 Time: 10:51 Bed 30 Private MD: ED Physician Tay Lorenzo HPI: 08/27 11:33 This 30 yrs old Black Female presents to ER via Ambulatory with complaints of Allergic rn Reaction, Facial Swelling, Hives. 11:33 The patient presents with itching, localized swelling, rash. Onset: The rn symptoms/episode began/occurred 4 day(s) ago. Associated signs and symptoms: Pertinent positives: rash, Pertinent negatives: fever, shortness of breath, vomiting. Possible causes: The patient has no known obvious cause for the symptoms. At home the patient or guardian has treated the symptoms with Benadryl, steroids. Severity of symptoms: At their worst the symptoms were moderate in the emergency department the symptoms are unchanged. The patient has experienced a previous episode. The patient has been recently seen by a physician:. Reports seen here a few days ago, prescribed steroid/benadryl, feels like getting worse. No fever, no sob, no abd pain or vomiting. Given medrol dose pack and benadryl. . Historical: - Allergies: 10:57 No Known Allergies; ll1 - PMHx: 10:57 Hypertension; ll1 - PSHx: 10:57 None; ll1 - Immunization history:: Flu vaccine is up to date. - Social history:: Smoking status: Patient reports the use of cigarette tobacco products, denies chronic smoking, but will smoke occasionally. - Family history:: not pertinent. - Hospitalizations: : No recent hospitalization is reported. ROS: 11:33 Constitutional: Negative for fever, chills, and weight loss, Eyes: Negative for injury, rn pain, redness, and discharge, Neck: Negative for injury, pain, and swelling, Cardiovascular: Negative for chest pain, palpitations Respiratory: Negative for shortness of breath, cough, wheezing, and pleuritic chest pain, Abdomen/GI: Negative for abdominal pain, nausea, vomiting, diarrhea, and constipation, Back: Negative for injury and pain, MS/Extremity: Negative for injury and deformity, Skin: Negative for injury and discoloration, Neuro: Negative for headache, weakness, numbness, tingling, and seizure. Exam: 11:33 Constitutional: This is a well developed, well nourished patient who is awake, alert, rn and in no acute distress. Head/Face: Atraumatic. + moderate swelling periorbital regions, no erythema or warmth Eyes: Pupils equal round and reactive to light, extra-ocular motions intact. Lids and lashes normal. Conjunctiva and sclera are non-icteric and not injected. Cornea within normal limits. ENT: No oral lesions or swelling, no stridor Cardiovascular: Regular rate and rhythm. No pulse deficits. Respiratory: No increased work of breathing, no retractions or nasal flaring. Skin: Warm, dry MS/ Extremity: Pulses equal, no cyanosis. Neuro: Awake and alert, GCS 15 Vital Signs: 10:55 Pulse 79; Resp 18; Weight 131.54 kg; Height 5 ft. 7 in. (170.18 cm); Pain 6/10; ll1 10:58 BP 185 / 111; Pulse Ox 99% ; ll1 10:55 Body Mass Index 45.42 (131.54 kg, 170.18 cm) ll1 MDM: 11:02 Patient medically screened. rn 12:09 Differential diagnosis: angioedema, urticaria. Data reviewed: vital signs, nurses rn notes, old medical records, and as a result, I will discharge patient. Counseling: I had a detailed discussion with the patient and/or guardian regarding: the historical points, exam findings, and any diagnostic results supporting the discharge/admit diagnosis, the need for outpatient follow up, to return to the emergency department if symptoms worsen or persist or if there are any questions or concerns that arise at home. Medical screen evaluation completed. [facility] emergency medical condition absent. Response to treatment: the patient's symptoms have mildly improved after treatment, and as a result, I will discharge patient. Special discussion: I discussed with the patient/guardian in detail that at this point there is no indication for admission to the hospital. It is understood, however, that if the symptoms persist or worsen the patient needs to return immediately for re-evaluation. ED course: Was planning on observing patient longer, patient wants to be discharged, states has appt at 1:30 PM and would like to leave now. . Administered Medications: 11:53 Drug: hydrOXYzine 50 mg Route: PO; tr6 11:54 Drug: SOLU-Medrol (methylPREDNISolone sodium succinate) 125 mg Route: IM; Site: right tr6 deltoid; Disposition: 08/27/20 12:10 Discharged to Home. Impression: Edema, unspecified. - Condition is Stable. - Discharge Instructions: Edema. - Prescriptions for Prednisone 20 mg Oral Tablet - take 3 tablet by ORAL route once daily for 5 days; 15 tablet. - Medication Reconciliation Form, Thank You Letter, Antibiotic Education, Prescription Opioid Use form. - Follow up: Private Physician; When: As needed; Reason: Recheck today's complaints, Re-evaluation by your physician. - Problem is an ongoing problem. - Symptoms are unchanged. Signatures: Tay Lorenzo MD MD rn Lewis, Lynsay, RN RN 1 Samantha Crockett RN RN tr6 Corrections: (The following items were deleted from the chart) 12:24 12:10 08/27/2020 12:10 Discharged to Home. Impression: Edema, unspecified. Condition is tr6 Stable. Forms are Medication Reconciliation Form, Thank You Letter, Antibiotic Education, Prescription Opioid Use. Follow up: Private Physician; When: As needed; Reason: Recheck today's complaints, Re-evaluation by your physician. Problem is an ongoing problem. Symptoms are unchanged. rn
--- NOTE | 2020-08-27 12:11 | ER ---
Nurse's Notes [facility] Name: Deep Deng Age: 30 yrs Sex: Female : 1990 Arrival Date: 08/27/2020 Time: 10:51 Bed 30 Private MD: Diagnosis: Edema, unspecified Presentation: 08/27 10:55 Chief complaint: Patient states: Facial swelling has gotten worse since her visit here ll1 Monday. Taking meds as prescribed (steroids, Benadryl). Coronavirus screen: Client denies travel out of the [place] in the last 14 days. At this time, the client does not indicate any symptoms associated with coronavirus-19. Ebola Screen: Patient denies travel to an Ebola-affected area in the 21 days before illness onset. Onset: The symptoms/episode began/occurred 4 day(s) ago. Initial Sepsis Screen: Does the patient meet any 2 criteria? No. Patient's initial sepsis screen is negative. Does the patient have a suspected source of infection? Yes: Skin breakdown/wound. Risk Assessment: Do you want to hurt yourself or someone else? Patient reports no desire to harm self or others. Onset of symptoms was August 24, 2020. 10:55 Method Of Arrival: Ambulatory ll1 10:55 Acuity: CHRISTIAN 3 ll1 10:57 Anaphylaxis evaluation, no signs or symptoms of anaphylaxis were noted. ll1 Historical: - Allergies: 10:57 No Known Allergies; ll1 - PMHx: 10:57 Hypertension; ll1 - PSHx: 10:57 None; ll1 - Immunization history:: Flu vaccine is up to date. - Social history:: Smoking status: Patient reports the use of cigarette tobacco products, denies chronic smoking, but will smoke occasionally. - Family history:: not pertinent. - Hospitalizations: : No recent hospitalization is reported. Screenin:56 Abuse screen: Denies threats or abuse. Denies injuries from another. Nutritional tr6 screening: No deficits noted. Tuberculosis screening: No symptoms or risk factors identified. Fall Risk None identified. Assessment: 11:55 General: Appears in no apparent distress. Behavior is calm, cooperative, appropriate tr6 for age. Pain: Complains of pain in face. Neuro: No deficits noted. Cardiovascular: No deficits noted. Respiratory: No deficits noted. Airway is patent Respiratory effort is even, unlabored, relaxed. GI: No deficits noted. : No deficits noted. EENT: Reports since Monday pt has had increasing swelling to face and clevage. pt is unsure what she is allergic to . Derm: Rash noted that is red. Musculoskeletal: No deficits noted. 11:57 Respiratory: Breath sounds are clear. tr6 Vital Signs: 10:55 Pulse 79; Resp 18; Weight 131.54 kg; Height 5 ft. 7 in. (170.18 cm); Pain 6/10; ll1 10:58 BP 185 / 111; Pulse Ox 99% ; ll1 10:55 Body Mass Index 45.42 (131.54 kg, 170.18 cm) ll1 ED Course: 10:51 Patient arrived in ED. as 10:57 Triage completed. ll1 10:57 Arm band placed on. ll1 11:02 Tay Lorenzo MD is Attending Physician. rn 11:43 Samantha Crockett RN is Primary Nurse. tr6 11:57 No apparent distress. Awaiting ED provider evaluation. tr6 11:57 Patient has correct armband on for positive identification. Bed in low position. Call tr6 light in reach. Side rails up X 1. manager monitoring on. Pulse ox on. NIBP on. Door closed. 11:57 No provider procedures requiring assistance completed. tr6 11:57 Patient did not have IV access during this emergency room visit. tr6 Administered Medications: 11:53 Drug: hydrOXYzine 50 mg Route: PO; tr6 11:54 Drug: SOLU-Medrol (methylPREDNISolone sodium succinate) 125 mg Route: IM; Site: right tr6 deltoid; Outcome: 12:10 Discharge ordered by . rn 12:12 Discharged to home ambulatory. tr6 12:12 Condition: stable 12:12 Discharge instructions given to patient, family, Instructed on discharge instructions, follow up and referral plans. safety practices, Demonstrated understanding of instructions, follow-up care, medications, Prescriptions given X 12:24 Patient left the ED. tr6 Signatures: Noris Solares Roman, MD MD rn Lewis, Lynsay, RN RN [facility] Samantha Crockett RN RN tr6 Corrections: (The following items were deleted from the chart) 11:03 10:55 Chief complaint: Patient states: Facial swelling has gotten way worse since her ll1 visit here Monday. Taking meds as prescribed. [facility] 10:55 Onset of symptoms was August 23, 2020 [place] [id number] 10:55 Chief complaint: Patient states: Facial swelling has gotten way worse since her [facility] visit here Monday. Taking meds as prescribed. [facility]
[2020-08-27 12:37] VITALS: BP 185/111; O2SAT 99
== END 2020-08-27 12:24 | disposition home or self-care (01) ==
LOC: ER 10:51
DX: R21 Rash and other nonspecific skin eruption (principal); R60.9 Edema, unspecified; I10 Essential (primary) hypertension; F17.210 Nicotine dependence, cigarettes, uncomplicated
CPT/HCPCS: 96372; 99284; J2930

== ENCOUNTER 2021-03-25 15:54 | Emergency (ER) | payer SELFPAY ==
--- OUTSIDE RECORDS SUMMARY | 2021-03-25 15:56 | XMS REPORT | Continuity of Care Document ---
:1990 Author Organization [facility] t Address [address] [place] [address] [address] [place] [address] Care Team Providers Name Role Phone Unavailable Unavailable Unavailable Problems This patient has no known problems. Allergies, Adverse Reactions, Alerts This patient has no known allergies or adverse reactions. Medications This patient has no known medications. Procedures This patient has no known procedures. Results This patient has no known results.
[2021-03-25 17:33] LABS: SARS-COV-2 RT PCR POSITIVE (NEGATIVE)
--- NOTE | 2021-03-25 17:54 | EDPHYS ---
Physician Documentation [facility] Name: Deep Deng Age: 31 yrs Sex: Female : 1990 Arrival Date: 03/25/2021 Time: 15:56 Bed Waiting Private MD: ED Physician Tyrone Silver HPI: 03/26 07:38 This 31 yrs old Black Female presents to ER via Ambulatory with complaints of Cough, kdr sweats, chills, stuffy nose. 07:38 The patient or guardian reports cough. Onset: The symptoms/episode began/occurred kdr gradually, 1 week(s) ago. Severity of symptoms: At their worst the symptoms were mild, in the emergency department the symptoms are unchanged. Modifying factors: The symptoms are alleviated by nothing, the symptoms are aggravated by nothing. Associated signs and symptoms: The patient has no apparent associated signs or symptoms. The patient has not experienced similar symptoms in the past. The patient has not recently seen a physician. Patient states for the past 2 days she has had nasal congestion and cough with sweats and chills. She denies nausea vomiting or diarrhea. 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 - Social history:: Smoking status: Patient reports the use of cigarette tobacco products, denies chronic smoking, but will smoke occasionally. ROS: 03/26 07:38 Constitutional: Negative for fever, chills, and weight loss, Eyes: Negative for injury, kdr pain, redness, and discharge, ENT: Negative for injury, pain, and discharge, Neck: Negative for injury, pain, and swelling, Cardiovascular: Negative for chest pain, palpitations, and edema, Abdomen/GI: Negative for abdominal pain, nausea, vomiting, diarrhea, and constipation, Back: Negative for injury and pain, : Negative for injury, bleeding, discharge, and swelling, MS/Extremity: Negative for injury and deformity, Skin: Negative for injury, rash, and discoloration, Neuro: Negative for headache, weakness, numbness, tingling, and seizure activity. Psych: Negative for depression, anxiety, suicide ideation, homicidal ideation, and hallucinations, Allergy/Immunology: Negative for hives, rash, and allergies, Endocrine: Negative for neck swelling, polydipsia, polyuria, polyphagia, and marked weight changes, Hematologic/Lymphatic: Negative for swollen nodes, abnormal bleeding, and unusual bruising. Respiratory: Positive for cough, with no reported sputum, Negative for dyspnea on exertion, hemoptysis, orthopnea, pleurisy, shortness of breath, sputum production, wheezing. Exam: 07:38 Constitutional: This is a well developed, well nourished patient who is awake, alert, kdr and in no acute distress. Head/Face: Normocephalic, atraumatic. Eyes: Pupils equal round and reactive to light, extra-ocular motions intact. Lids and lashes normal. Conjunctiva and sclera are non-icteric and not injected. Cornea within normal limits. Periorbital areas with no swelling, redness, or edema. Neck: Trachea midline, no thyromegaly or masses palpated, and no cervical lymphadenopathy. Supple, full range of motion without nuchal rigidity, or vertebral point tenderness. No Meningismus. Chest/axilla: Normal chest wall appearance and motion. Nontender with no deformity. No lesions are appreciated. Cardiovascular: Regular rate and rhythm with a normal S1 and S2. No gallops, murmurs, or rubs. Normal PMI, no JVD. No pulse deficits. Respiratory: Lungs have equal breath sounds bilaterally, clear to auscultation and percussion. No rales, rhonchi or wheezes noted. No increased work of breathing, no retractions or nasal flaring. Abdomen/GI: Soft, non-tender, with normal bowel sounds. No distension or tympany. No guarding or rebound. No evidence of tenderness throughout. Back: No spinal tenderness. No costovertebral tenderness. Full range of motion. Skin: Warm, dry with normal turgor. Normal color with no rashes, no lesions, and no evidence of cellulitis. MS/ Extremity: Pulses equal, no cyanosis. Neurovascular intact. Full, normal range of motion. Neuro: Awake and alert, GCS 15, oriented to person, place, time, and situation. Cranial nerves II-XII grossly intact. Motor strength 5/5 in all extremities. Sensory grossly intact. Cerebellar exam normal. Normal gait. Psych: Awake, alert, with orientation to person, place and time. Behavior, mood, and affect are within normal limits. Vital Signs: 03/25 15:59 BP 174 / 114; Pulse 88; Resp 18; Temp 97.2; Pulse Ox 100% ; Height 5 ft. 7 in. (170.18 iw cm); Pain 0/10; MDM: 17:54 Patient medically screened. kdr 03/26 07:38 Data reviewed: vital signs, nurses notes, lab test result(s), radiologic studies. kdr Counseling: I had a detailed discussion with the patient and/or guardian regarding: the historical points, exam findings, and any diagnostic results supporting the discharge/admit diagnosis, lab results, radiology results, the need for outpatient follow up. 03/25 16:05 Order name: COVID-19/FLU A+B (Document "Date of Onset" if Symptomatic) iw Administered Medications: No medications were administered Disposition Summary: 03/25/21 17:54 Discharge Ordered Location: Home kdr Problem: new kdr Symptoms: have improved kdr Condition: Stable kdr Diagnosis - Acute upper respiratory infection, unspecified kdr - SARS-associated coronavirus as the cause of diseases classified elsewhere kdr Followup: kdr - With: Private Physician - When: 2 - 3 days - Reason: If symptoms return, Further diagnostic work-up, Recheck today's complaints, Continuance of care, Re-evaluation by your physician Discharge Instructions: - Discharge Summary Sheet kdr - COVID-19 kdr - Things to Know about the COVID-19 Pandemic - [facility] kdr - 10 Things You Can Do to Manage Your COVID-19 Symptoms at Home - [facility] kdr - COVID-19: Quarantine vs. Isolation - CDC kdr - Prevent the Spread of COVID-19 if You Are Sick - [facility] kdr Forms: - Medication Reconciliation Form kdr - Thank You Letter kdr Signatures: Dispatcher [employer] Tyrone Arteaga MD MD kdr Rowan Louis RN RN iw
--- NOTE | 2021-03-25 17:54 | ER ---
Nurse's Notes [facility] Name: Deep Deng Age: 31 yrs Sex: Female : 1990 Arrival Date: 03/25/2021 Time: 15:56 Bed Waiting Private MD: Diagnosis: Acute upper respiratory infection, unspecified;SARS-associated coronavirus as the cause of diseases classified elsewhere Presentation: 03/25 15:59 Chief complaint: Patient states: nasal congestion, cough, sweats/chills x2 days. Denies iw NVD. Coronavirus screen: Vaccine status: Patient reports receiving the 2nd dose of the covid vaccine. Client denies travel out of the [place] in the last 14 days. Ebola Screen: Patient negative for fever greater than or equal to 101.5 degrees Fahrenheit, and additional compatible Ebola Virus Disease symptoms. Initial Sepsis Screen: Does the patient meet any 2 criteria? No. Patient's initial sepsis screen is negative. Does the patient have a suspected source of infection? No. Patient's initial sepsis screen is negative. Risk Assessment: Do you want to hurt yourself or someone else? Patient reports no desire to harm self or others. Onset of symptoms was March 23, 2021. 15:59 Method Of Arrival: Ambulatory iw 15:59 Acuity: CHRISTIAN 4 iw Triage Assessment: 16:03 General: Appears in no apparent distress. comfortable, Behavior is calm, cooperative. iw Pain: Denies pain. Respiratory: Reports cough that is dry, Airway is patent Respiratory effort is even, unlabored. 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 - Social history:: Smoking status: Patient reports the use of cigarette tobacco products, denies chronic smoking, but will smoke occasionally. Vital Signs: 15:59 BP 174 / 114; Pulse 88; Resp 18; Temp 97.2; Pulse Ox 100% ; Height 5 ft. 7 in. (170.18 iw cm); Pain 0/10; ED Course: 15:56 Patient arrived in ED. am2 16:03 Triage completed. iw 16:03 Arm band placed on. iw 16:07 COVID swab sent to lab. Flu and/or RSV swab sent to lab. iw 16:17 Tyrone Silver MD is Attending Physician. kdr Administered Medications: No medications were administered Outcome: 17:54 Discharge ordered by . kdr 18:11 Patient left the ED. vg1 Signatures: Tyrone Silver MD MD kdr Rowan Louis, RN RN Marry Ivory [facility] Berenice Ritchie, RN RN vg1
[2021-03-25 18:24] VITALS: BP 174/114; TEMP 97.2; O2SAT 100
== END 2021-03-25 18:11 | disposition home or self-care (01) ==
LOC: ER 15:54
DX: U07.1 COVID-19 (principal); J06.9 Acute upper respiratory infection, unspecified; I10 Essential (primary) hypertension
CPT/HCPCS: 0240U; 99282

== ENCOUNTER 2021-12-28 12:58 | Emergency (ER) | payer SELFPAY ==
--- OUTSIDE RECORDS SUMMARY | 2021-12-28 13:01 | XMS REPORT | Continuity of Care Document ---
:1990 Author Organization [facility] t Address [address] [place] [address] Care Team Providers Name Role Phone Unavailable Unavailable Unavailable Problems This patient has no known problems. Allergies, Adverse Reactions, Alerts This patient has no known allergies or adverse reactions. Medications This patient has no known medications. Procedures This patient has no known procedures. Results This patient has no known results.
[2021-12-28 15:15] LABS: Urine Blood Negative (Negative); Urine Glucose Negative (Negative); Urine Protein Negative (Negative)
[2021-12-28 15:46] LABS: Hematocrit 40.4 % (36.0-45.0); Lymphocytes % 19.5 % (15.3-44.8); MCV 89.5 fL (80-100); MPV 9.5 fL (7.6-11.3); RBC Red Blood Cell Count 4.51 M/uL (3.86-4.86)
--- NOTE | 2021-12-28 15:58 | RAD REPORT ---
EXAM DESCRIPTION: Brittanie Single View12/28/2021 3:44 pm CLINICAL HISTORY: Chest pain COMPARISON: 2019 FINDINGS: The lungs are hazy. Heart is normal size IMPRESSION: Lungs appear hazy. This probably is secondary to overlying soft tissue rather than infi ltrate. It is recommended that the patient have PA and lateral chest series for further evaluation
[2021-12-28 16:06] LABS: Albumin 3.1 g/dL (3.4-5.0); Bilirubin Total 0.2 mg/dL (0.2-1.0); Potassium 3.8 mmol/L (3.5-5.1); Protein, Total 7.1 g/dL (6.4-8.2); Troponin High Sensitivity 5.3 pg/mL (<58.9)
[2021-12-28] MEDS ORDERED: niMODipine 30 MG CAP PO ONE (16:12)
[2021-12-28] MEDS ORDERED: METOPROLOL TAR 25 MG TAB ONE (16:13)
[2021-12-28] MEDS ORDERED: NIFEdipine 10 MG CAP ONE (16:24)
--- NOTE | 2021-12-28 16:46 | ER ---
Nurse's Notes [facility] Name: Deep Deng Age: 31 yrs Sex: Female : 1990 Arrival Date: 12/28/2021 Time: 13:00 Bed 11 Private MD: Diagnosis: Uncontrolled Hypertension;Non-compliance with medication regimen Presentation: 12/28 14:00 Chief complaint: Patient states: sharp chest pain to upper left side of chest lasting jh5 approx 15 min long with 3 different episodes since last night. Pt states she thought it was heart burn but wasn't sure so wanted to come in. Pt endorses having a history of HTN but has been out of medicine x3 weeks. Pt also states her feet have been swollen x3 days and "barely went down last night". Coronavirus screen: Vaccine status: Patient reports receiving the 2nd dose of the covid vaccine. Client denies travel out of the [place] in the last 14 days. Ebola Screen: Patient negative for fever greater than or equal to 101.5 degrees Fahrenheit, and additional compatible Ebola Virus Disease symptoms Patient denies exposure to infectious person. Patient denies travel to an Ebola-affected area in the 21 days before illness onset. Initial Sepsis Screen: Does the patient meet any 2 criteria? No. Patient's initial sepsis screen is negative. Does the patient have a suspected source of infection? No. Patient's initial sepsis screen is negative. Risk Assessment: Do you want to hurt yourself or someone else? Patient reports no desire to harm self or others. 14:00 Method Of Arrival: Ambulatory [facility] 14:00 Acuity: CHRISTIAN 2 jh5 16:54 Onset of symptoms is unknown. ap3 Triage Assessment: 14:03 General: Appears in no apparent distress. obese, well groomed, well developed, well jh5 nourished, Behavior is calm, cooperative, appropriate for age. Pain: Complains of pain in chest. 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 - Social history:: Smoking status: Patient denies any tobacco usage or history of. Screenin:33 Abuse screen: Denies threats or abuse. Denies injuries from another. Nutritional ss screening: No deficits noted. Tuberculosis screening: Never had TB. Fall Risk None identified. Assessment: 15:36 Reassessment: Recollected labs and sent to lab at this time. Pt remains seated in lobby. NAD at this time. RR even and unlabored. Pt updated on wait time. 16:33 Reassessment: Patient appears in no apparent distress at this time. Patient and/or ss family updated on plan of care and expected duration. Pain level reassessed. Patient is alert, oriented x 3, equal unlabored respirations, skin warm/dry/pink. Pain: Denies pain. Vital Signs: 14:00 BP 214 / 122; Pulse 79; Resp 18; Temp 97.6; Pulse Ox 100% ; Weight 127.01 kg; Height 5 [facility] ft. 7 in. (170.18 cm); Pain 0/10; 14:05 BP 189 / 119; jh5 16:02 BP 168 / 124; jh5 16:55 BP 177 / 87; ap3 14:00 Body Mass Index 43.85 (127.01 kg, 170.18 cm) 5 ED Course: 13:00 Patient arrived in ED. mr 14:03 Triage completed. [facility] 14:05 Arm band placed on right wrist. [facility] 15:10 Initial lab(s) drawn, by mn, sent to lab. Inserted saline lock: 20 gauge in left kj1 antecubital area, using aseptic technique. Blood collected. 15:46 XRAY Chest (1 view) In Process Unspecified. EDMS 16:03 Diana Jeong MD is Attending Physician. sd2 16:05 Tasneem Amaro, ALISON is Primary Nurse. ss 16:54 Patient has correct armband on for positive identification. Bed in low position. Call ap3 light in reach. Side rails up X 1. 16:54 No provider procedures requiring assistance completed. ap3 16:55 IV discontinued, intact, bleeding controlled, No redness/swelling at site. Pressure ap3 dressing applied. Administered Medications: 16:16 Drug: Metoprolol 25 mg Route: PO; ss 16:56 Follow up: Response: No adverse reaction ap3 16:16 Drug: NIFEdipine 30 mg Route: PO; ss 16:55 Follow up: Response: No adverse reaction ap3 Medication: 16:33 VIS not applicable for this client. ss Outcome: 16:45 Discharge ordered by . sd2 16:54 Condition: good ap3 16:54 Discharged to home ambulatory. ap3 16:54 Discharge instructions given to patient, Instructed on discharge instructions, follow up and referral plans. medication usage, Demonstrated understanding of instructions, follow-up care, medications, Prescriptions given X 2. 16:55 Patient left the ED. ap3 Signatures: Dispatcher [employer] [facility] Marcia Anthony Tasneem Servin, RN RN ss Marry Mohan RN RN ap3 Hayley Morris Jessica, RN RN jh5 Diana Jeong MD MD sd2 Corrections: (The following items were deleted from the chart) 14:13 14:00 Acuity: CHRISTIAN 3 donnell jh5
--- NOTE | 2021-12-28 16:46 | EDPHYS ---
Physician Documentation [facility] Name: Deep Deng Age: 31 yrs Sex: Female : 1990 Arrival Date: 12/28/2021 Time: 13:00 Bed 11 Private MD: ED Physician Diana Jeong HPI: 12/28 16:04 This 31 yrs old Black Female presents to ER via Ambulatory with complaints of High sd2 Blood Pressure, Chest Discomfort. 16:04 31-year-old female with a history of hypertension presents with chief complaint of sd2 left-sided chest discomfort that started yesterday and has been intermittent since then. The patient is currently asymptomatic and has been since her arrival to the ER. She reports she suspected that her blood pressure would be high because she has been off of her blood pressure medications for the last 3 weeks and has not been able to make it to see her doctor. She denies any current chest pain and did not have any associated shortness of breath, nausea, vomiting or diaphoresis. She has no prior cardiac history. She does not currently take any other medications and has not had any recent surgeries or travel.. 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 - Social history:: Smoking status: Patient denies any tobacco usage or history of. ROS: 16:04 Constitutional: Negative for fever, chills, and weight loss, Eyes: Negative for injury, sd2 pain, redness, and discharge, Cardiovascular: Negative for chest pain, palpitations. Positive for chest discomfort and edema (BLE, last night, now resolved) Respiratory: Negative for shortness of breath, cough, wheezing. Abdomen/GI: Negative for abdominal pain, nausea, vomiting, diarrhea. MS/Extremity: Negative for injury and deformity, Skin: Negative for injury, rash, and discoloration, Neuro: Negative for headache, numbness and tingling. Exam: 16:04 Constitutional: This is a well developed, well nourished patient who is awake, alert, sd2 and in no acute distress. Head/Face: Normocephalic, atraumatic. Eyes: EOMI, normal conjunctiva bilaterally Chest/axilla: Normal chest wall appearance and motion. Nontender with no deformity. Cardiovascular: Regular rate and rhythm with a normal S1 and S2. No gallops, murmurs, or rubs. 2+ distal pulses. Respiratory: Lungs have equal breath sounds bilaterally, clear to auscultation and percussion. No rales, rhonchi or wheezes noted. No increased work of breathing, no retractions or nasal flaring. Abdomen/GI: Soft, non-tender, with normal bowel sounds. No guarding or rebound. No evidence of tenderness throughout. Skin: Warm, dry with normal turgor. Normal color with no rashes, no lesions, and no evidence of cellulitis. MS/ Extremity: Pulses equal, no cyanosis. Neurovascular intact. Full, normal range of motion. Ambulatory without difficulty. Psych: Awake, alert, with orientation to person, place and time. Behavior, mood, and affect are within normal limits. 16:04 ECG was reviewed by the Attending Physician. NSR, rate 66, no STEMI criteria sd2 Vital Signs: 14:00 BP 214 / 122; Pulse 79; Resp 18; Temp 97.6; Pulse Ox 100% ; Weight 127.01 kg; Height 5 jh5 ft. 7 in. (170.18 cm); Pain 0/10; 14:05 BP 189 / 119; jh5 16:02 BP 168 / 124; jh5 16:55 BP 177 / 87; ap3 14:00 Body Mass Index 43.85 (127.01 kg, 170.18 cm) [facility] MDM: 16:04 Patient medically screened. sd2 16:04 Differential diagnosis: Differential diagnosis includes but is not limited to: ACS, sd2 DVT/PE, pneumothorax, dissection, musculoskeletal, anxiety, anemia, electrolyte abnormality, pneumonia, CHF, COPD among others. Data reviewed: vital signs, nurses notes. 16:07 Data reviewed: lab test result(s), EKG, radiologic studies. sd2 16:08 Counseling: I had a detailed discussion with the patient and/or guardian regarding: the sd2 historical points, exam findings, and any diagnostic results supporting the discharge/admit diagnosis, the presence of at least one elevated blood pressure reading (>120/80) during this emergency department visit, lab results, radiology results, the need for outpatient follow up, to return to the emergency department if symptoms worsen or persist or if there are any questions or concerns that arise at home. Medical screen evaluation completed. [facility] emergency medical condition absent. ED course: Labs and imaging reviewed. Labs grossly WNCL. NEgative trop. EKG with no ischemic changes. BP downtrending. Pt given her normal home BP meds and was given 30 day prescription. Pt remains asymptomatic and was advised of need to follow up with PCP during this time for refill of her BP medication. She verbalizes understanding of discharge plan and strict return precautions. . 16:45 ED course: Repeat BP now 169/70 and improving. . 12/28 14:22 Order name: CBC with Diff; Complete Time: 16:04 12/28 14:22 Order name: CMP; Complete Time: 16:07 12/28 14:22 Order name: Troponin High Sensitivity; Complete Time: 16:07 sd2 12/28 14:22 Order name: XRAY Chest (1 view); Complete Time: 16:04 2 12/28 15:15 Order name: Urine Dipstick-Ancillary; Complete Time: 15:24 EDMS 12/28 15:19 Order name: Urine --Ancillary (enter results); Complete Time: 16:04 bd 12/28 14:22 Order name: EKG - Nurse/Tech; Complete Time: 15:00 2 12/28 15:09 Order name: Labs - recollect needed: recollect green and lavender tube; Complete Time: bd 15:31 Administered Medications: 16:16 Drug: Metoprolol 25 mg Route: PO; ss 16:56 Follow up: Response: No adverse reaction ap3 16:16 Drug: NIFEdipine 30 mg Route: PO; ss 16:55 Follow up: Response: No adverse reaction ap3 Disposition Summary: 12/28/21 16:45 Discharge Ordered Location: Home sd2 Problem: an acute exacerbation sd2 Symptoms: have improved sd2 Condition: Stable sd2 Diagnosis - Uncontrolled Hypertension sd2 - Non-compliance with medication regimen sd2 Followup: sd2 - With: Private Physician - When: 2 - 3 days - Reason: Recheck today's complaints, Continuance of care, Re-evaluation by your physician Discharge Instructions: - Discharge Summary Sheet sd2 - Hypertension, Adult sd2 - Managing Your Hypertension sd2 Forms: - Medication Reconciliation Form sd2 - Thank You Letter sd2 - Antibiotic Education sd2 - Prescription Opioid Use sd2 Prescriptions: - nifedipine 30 mg Oral tablet extended release 24hr - take 1 tablet by ORAL route once daily; 30 tablet; Refills: 0, Product sd2 Selection Permitted - Metoprolol Tartrate 25 mg Oral Tablet - take 1 tablet by ORAL route once daily with a meal; 30 tablet; Refills: 0, sd2 Product Selection Permitted Signatures: Dispatcher [employer] Liliana Holley Shelby, RN RN ss Sameera Alfaro RN RN jh5 Diana Jeong MD MD sd2 Marry Mohan RN ap3
[2021-12-29 19:13] VITALS: TEMP 97.6; O2SAT 100
[2021-12-29 19:32] VITALS: BP 168/124
--- NOTE | 2021-12-30 13:42 | EKG ---
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
== END 2021-12-28 16:55 | disposition home or self-care (01) ==
LOC: ER 12:58
DX: I10 Essential (primary) hypertension (principal); Z91.14 Patient's other noncompliance with medication regimen
CPT/HCPCS: 36415; 71045; 80053; 81003; 81025; 84484; 85025; 93005; 99284

== ENCOUNTER 2022-09-14 17:31 | Emergency (ER) | payer SELFPAY ==
--- OUTSIDE RECORDS SUMMARY | 2022-09-14 17:37 | XMS REPORT | Continuity of Care Document ---
:1990 Author Organization [facility] t Address [address] [facility] [address] [place] [address] Care Team Providers Name Role Phone Sushant ROSARIO, Joaquín Primary Care Physician [phone] Problems This patient has no known problems. Allergies, Adverse Reactions, Alerts This patient has no known allergies or adverse reactions. Medications Ordered Filled Start Stop Current Ordering Indication Dosage Frequency Signature Comments Components Source Medication Medication Date Date Medication? Clinician (SIG) Name Name Dose 2021-0 No Unknown - 00:00: 00 Dose 2021-0 No Unknown -25 00:00: 00 triamcinolo 1-0 No 1% ne 5-20 acetonide 00:00: 0.1 % 00 topical cream prednisone 2020-0 No 3mg 20 mg 5-20 tablet 00:00: 00 losartan 25 2020-0 No 1mg mg tablet 5-20 00:00: 00 Dose 2020-0 No Unknown 5-20 00:00: 00 prednisone 2020-0 No 3mg 20 mg 5-20 tablet 00:00: 00 triamcinolo 2020-0 No 1% ne 5-20 acetonide 00:00: 0.1 % 00 topical cream prednisone 2020-0 No 3mg 20 mg 5-20 tablet 00:00: 00 losartan 25 1-0 No 1mg mg tablet 5-20 00:00: 00 Dose 2020-0 No Unknown 5-20 00:00: 00 prednisone 1-0 No 3mg 20 mg 5-20 tablet 00:00: 00 metronidazo 2020-0 No 1mg le 500 mg 3-26 tablet 00:00: 00 metronidazo 2020-0 No 1mg le 500 mg 3-26 tablet 00:00: 00 metformin 2020-0 No 1mg 500 mg 3-19 tablet 00:00: 00 nifedipine 2020-0 No 1mg ER 30 mg 3-19 tablet,exte 00:00: nded 00 release metformin 2020-0 No 1mg 500 mg 3-19 tablet 00:00: 00 nifedipine 2020-0 No 1mg ER 30 mg 3-19 tablet,exte 00:00: nded 00 release losartan 25 2019-0 No 1mg mg tablet 9 00:00: 00 losartan 25 2019-0 No 1mg mg tablet 12-21 00:00: 00 amlodipine 2018-1 No 1mg 5 mg tablet 008 00:00: 00 amlodipine 2018-1 No 1mg 5 mg tablet 008 00:00: 00 lisinopril 2018-0 No 1mg 20 9-24 mg-hydrochl 00:00: orothiazide 00 12.5 mg tablet lisinopril 2018-0 No 1mg 20 9-24 mg-hydrochl 00:00: orothiazide 00 12.5 mg tablet metronidazo 2017-0 No 1mg le 500 mg 6-08 tablet 00:00: 00 metronidazo 2017-0 No 1mg le 500 mg 6-08 tablet 00:00: 00 lisinopril 2017-0 No 1mg 20 6-05 mg-hydrochl 00:00: orothiazide 00 12.5 mg tablet lisinopril 2017-0 No 1mg 20 6-05 mg-hydrochl 00:00: orothiazide 00 12.5 mg tablet Prilosec 2016-0 No 1mg OTC 20 mg 5-03 tablet,bhakti 00:00: yed release 00 Prilosec 2016-0 No 1mg OTC 20 mg 5-03 tablet,bhakti 00:00: yed release 00 Vital Signs Vital Name Observation Time Observation Value Comments Source BP Systolic 2022-02-10 15:48:00 173 mm[Hg] BP Diastolic 2022-02-10 15:48:00 116 mm[Hg] Weight Measured 2022-02-10 15:48:00 357.80 pounds Height Measured 2022-02-10 15:48:00 66.00 inches Body Temperature 2022-02-10 15:48:00 98.00 degrees Heart Rate 2022-02-10 15:48:00 75.00 /min Respiratory Rate 2022-02-10 15:48:00 18.00 /min BP Systolic 2022-01-04 13:36:00 175 mm[Hg] BP Diastolic 2022-01-04 13:36:00 101 mm[Hg] Weight Measured 2022-01-04 13:36:00 354.60 pounds Height Measured 2022-01-04 13:36:00 66.00 inches Body Temperature 2022-01-04 13:36:00 98.30 degrees Heart Rate 2022-01-04 13:36:00 73.00 /min Respiratory Rate 2022-01-04 13:36:00 18.00 /min BP Systolic 2020-11-30 16:01:00 145 mm[Hg] BP Diastolic 2020-11-30 16:01:00 84 mm[Hg] Weight Measured 2020-11-30 16:01:00 340.20 pounds Height Measured 2020-11-30 16:01:00 66.00 inches Body Temperature 2020-11-30 16:01:00 98.90 degrees Heart Rate 2020-11-30 16:01:00 108.00 /min Respiratory Rate 2020-11-30 16:01:00 BP Systolic 2020-08-27 14:42:00 189 mm[Hg] BP Diastolic 2020-08-27 14:42:00 107 mm[Hg] Weight Measured 2020-08-27 14:42:00 330.40 pounds Height Measured 2020-08-27 14:42:00 66.00 inches Body Temperature 2020-08-27 14:42:00 98.00 degrees Heart Rate 2020-08-27 14:42:00 88.00 /min Respiratory Rate 2020-08-27 14:42:00 16.00 /min BP Systolic 2020-08-27 14:17:00 189 mm[Hg] BP Diastolic 2020-08-27 14:17:00 107 mm[Hg] Weight Measured 2020-08-27 14:17:00 330.40 pounds Height Measured 2020-08-27 14:17:00 66.00 inches Body Temperature 2020-08-27 14:17:00 98.00 degrees Heart Rate 2020-08-27 14:17:00 88.00 /min Respiratory Rate 2020-08-27 14:17:00 16.00 /min BP Systolic 2019-06-27 13:33:00 143 mm[Hg] BP Diastolic 2019-06-27 13:33:00 99 mm[Hg] Weight Measured 2019-06-27 13:33:00 323.60 pounds Height Measured 2019-06-27 13:33:00 66.00 inches Body Temperature 2019-06-27 13:33:00 98.20 degrees Heart Rate 2019-06-27 13:33:00 71.00 /min Respiratory Rate 2019-06-27 13:33:00 16.00 /min BP Systolic 2018-12-21 08:31:00 159 mm[Hg] BP Diastolic 2018-12-21 08:31:00 100 mm[Hg] Weight Measured 2018-12-21 08:31:00 304.00 pounds Height Measured 2018-12-21 08:31:00 66.00 inches Body Temperature 2018-12-21 08:31:00 98.60 degrees Heart Rate 2018-12-21 08:31:00 90.00 /min Respiratory Rate 2018-12-21 08:31:00 18.00 /min BP Systolic 2018-01-15 16:24:00 178 mm[Hg] BP Diastolic 2018-01-15 16:24:00 107 mm[Hg] Weight Measured 2018-01-15 16:24:00 294.00 pounds Height Measured 2018-01-15 16:24:00 66.00 inches Body Temperature 2018-01-15 16:24:00 97.90 degrees Heart Rate 2018-01-15 16:24:00 78.00 /min Respiratory Rate 2018-01-15 16:24:00 16.00 /min BP Systolic 2018-01-15 16:20:00 178 mm[Hg] BP Diastolic 2018-01-15 16:20:00 107 mm[Hg] Weight Measured 2018-01-15 16:20:00 294.20 pounds Height Measured 2018-01-15 16:20:00 66.50 inches Body Temperature 2018-01-15 16:20:00 97.90 degrees Heart Rate 2018-01-15 16:20:00 78.00 /min Respiratory Rate 2018-01-15 16:20:00 16.00 /min BP Systolic 2018-01-01 16:12:00 109 mm[Hg] BP Diastolic 2018-01-01 16:12:00 100 mm[Hg] Weight Measured 2018-01-01 16:12:00 Height Measured 2018-01-01 16:12:00 Body Temperature 2018-01-01 16:12:00 Heart Rate 2018-01-01 16:12:00 Respiratory Rate 2018-01-01 16:12:00 BP Systolic 2018-01-01 14:47:00 178 mm[Hg] BP Diastolic 2018-01-01 14:47:00 104 mm[Hg] Weight Measured 2018-01-01 14:47:00 287.80 pounds Height Measured 2018-01-01 14:47:00 66.50 inches Body Temperature 2018-01-01 14:47:00 98.90 degrees Heart Rate 2018-01-01 14:47:00 72.00 /min Respiratory Rate 2018-01-01 14:47:00 16.00 /min Procedures This patient has no known procedures. Plan of Care Planned Activity Planned Date Details Comments Source Goal Plan of Care Note [code = 47156-1] Goal Plan of Care Note [code = 38549-3] Goal Plan of Care Note [code = 90431-5] Goal Plan of Care Note [code = 60328-0] Goal Plan of Care Note [code = 23504-3] Goal Plan of Care Note [code = 00742-7] Goal Plan of Care Note [code = 08109-7] Goal Plan of Care Note [code = 94611-1] Goal Plan of Care Note [code = 44138-1] Goal Plan of Care Note [code = 66108-7] Goal Plan of Care Note [code = 05174-3] Goal Plan of Care Note [code = 18240-2] Goal Plan of Care Note [code = 90654-7] Goal Plan of Care Note [code = 32487-2] Goal Plan of Care Note [code = 41832-2] Goal Plan of Care Note [code = 85975-5] Goal Plan of Care Note [code = 78963-0] Goal Plan of Care Note [code = 38980-1] Goal Plan of Care Note [code = 65815-6] Goal Plan of Care Note [code = 37374-9] Goal Plan of Care Note [code = 15637-8] Goal Plan of Care Note [code = 78859-9] Goal Plan of Care Note [code = 29123-1] Goal Plan of Care Note [code = 97078-9] Goal Plan of Care Note [code = 42965-7] Goal Plan of Care Note [code = 46690-4] Goal Plan of Care Note [code = 93867-1] Goal Plan of Care Note [code = 31493-7] Goal Plan of Care Note [code = 67959-8] Goal Plan of Care Note [code = 87196-2] Goal Plan of Care Note [code = 48607-6] Goal Plan of Care Note [code = 79742-2] Goal Plan of Care Note [code = 54220-9] Goal Plan of Care Note [code = 62869-0] Goal Plan of Care Note [code = 47307-6] Goal Plan of Care Note [code = 89336-5] Goal Plan of Care Note [code = 20861-9] Goal Plan of Care Note [code = 45049-3] Goal Plan of Care Note [code = 43648-1] Goal Plan of Care Note [code = 89275-5] Goal Plan of Care Note [code = 37955-5] Goal Plan of Care Note [code = 37911-0] Goal Plan of Care Note [code = 60176-8] Goal Plan of Care Note [code = 48146-2] Goal Plan of Care Note [code = 75522-5] Goal Plan of Care Note [code = 89052-8] Goal Plan of Care Note [code = 35398-8] Goal Plan of Care Note [code = 00986-8] Goal Plan of Care Note [code = 88714-4] Encounters Start End Encounter Admission Attending Care Care Encounter Source Date/Time Date/Time Type Type Clinicians Facility Department ID 2022-04-20 2022-04-20 Outpatient SFA SFA [id number] 023 Mike 14:41:24 14:41:24 0111 F True 2022-02-10 2022-02-10 Outpatient SFA SFA [id number] 022 Mike 15:47:16 15:47:16 1103 F True 2022-02-10 2022-02-10 Outpatient [id number] 00:00:00 00:00:00 Visit [id number] 2022-01-04 2022-01-04 Outpatient [id number] 00:00:00 00:00:00 Visit [id number]-[id number] Results Test Description Test Time Test Comments Results Result Comments Source TSH, THIRD GENERATION 2022-04-22 06:35:25 Test Item Value Reference Range Interpretation Comme nts TSH, THIRD GENERATION (test 1.410 UIU/ML 0.400-4.100 UNLESS OTHERWISE INDICATED, code = 2821) ALL TESTING PER [facility] ATCLINICAL PATH [facility], [place] [address] [address] SALESMAN: Rajiv CURTIS [id number] [place] [facility] [place] [id number] [place]/NG, TMA, [id number] 00:00:00 Test Item Value Reference Range Interpretation Comments GONORRHEA, NAAT (test code = 45998) NEGATIVE CHLAMYDIA, NAAT (test code = 22159) POSITIVE CT/NG, TMA, [id number] 00:00:00 Test Item Value Reference Range Interpretation Comments GONORRHEA, NAAT (test code = 78897) NEGATIVE CHLAMYDIA, NAAT (test code = 26237) POSITIVE CBC W/AUTO [id number] 00:00:00 Test Item Value Reference Range Interpretation Comments WBC (test code = 1001) 11.4 K/UL RBC (test code = 1002) 4.39 M/UL HEMOGLOBIN (test code = 1003) 12.8 G/DL HEMATOCRIT (test code = 1004) 38.3 % MCV (test code = 1005) 87.2 fL MCH (test code = 1006) 29.2 PG MCHC (test code = 1007) 33.4 G/DL RDW (test code = 1038) 13.3 % NEUTROPHILS (test code = 1008) 70.9 % LYMPHOCYTES (test code = 1010) 19.8 % MONOCYTES (test code = 1011) 5.5 % EOSINOPHILS (test code = 1012) 2.9 % BASOPHILS (test code = 1013) 0.7 % IMMATURE GRANULOCYTES (test 0.2 % code = 1036) NUCLEATED RBCS (test code = 0.0 /100WBC'S 1065) PLATELET COUNT (test code = 287 K/UL 1015) ABSOLUTE NEUTROPHILS (test code 8.10 K/UL = 1066) ABSOLUTE LYMPHOCYTES (test code 2.26 K/UL = 1067) ABSOLUTE MONOCYTES (test code = 0.63 K/UL 1068) ABSOLUTE EOSINOPHILS (test code 0.33 K/UL = 1040) ABSOLUTE BASOPHILS (test code = 0.08 K/UL 1069) ABS IMMATURE GRANULOCYTES (test 0.02 K/UL code = 1020) ABS NUCLEATED RBCS (test code = 0.00 K/UL 94030) CBC W/AUTO [id number] 00:00:00 Test Item Value Reference Range Interpretation Comments WBC (test code = 1001) 11.4 K/UL RBC (test code = 1002) 4.39 M/UL HEMOGLOBIN (test code = 1003) 12.8 G/DL HEMATOCRIT (test code = 1004) 38.3 % MCV (test code = 1005) 87.2 fL MCH (test code = 1006) 29.2 PG MCHC (test code = 1007) 33.4 G/DL RDW (test code = 1038) 13.3 % NEUTROPHILS (test code = 1008) 70.9 % LYMPHOCYTES (test code = 1010) 19.8 % MONOCYTES (test code = 1011) 5.5 % EOSINOPHILS (test code = 1012) 2.9 % BASOPHILS (test code = 1013) 0.7 % IMMATURE GRANULOCYTES (test 0.2 % code = 1036) NUCLEATED RBCS (test code = 0.0 /100WBC'S 1065) PLATELET COUNT (test code = 287 K/UL 1015) ABSOLUTE NEUTROPHILS (test code 8.10 K/UL = 1066) ABSOLUTE LYMPHOCYTES (test code 2.26 K/UL = 1067) ABSOLUTE MONOCYTES (test code = 0.63 K/UL 1068) ABSOLUTE EOSINOPHILS (test code 0.33 K/UL = 1040) ABSOLUTE BASOPHILS (test code = 0.08 K/UL 1069) ABS IMMATURE GRANULOCYTES (test 0.02 K/UL code = 1020) ABS NUCLEATED RBCS (test code = 0.00 K/UL 19593) CBC W/AUTO [id number] 00:00:00 Test Item Value Reference Range Interpretation Comments WBC (test code = 1001) 11.4 K/UL RBC (test code = 1002) 4.39 M/UL HEMOGLOBIN (test code = 1003) 12.8 G/DL HEMATOCRIT (test code = 1004) 38.3 % MCV (test code = 1005) 87.2 fL MCH (test code = 1006) 29.2 PG MCHC (test code = 1007) 33.4 G/DL RDW (test code = 1038) 13.3 % NEUTROPHILS (test code = 1008) 70.9 % LYMPHOCYTES (test code = 1010) 19.8 % MONOCYTES (test code = 1011) 5.5 % EOSINOPHILS (test code = 1012) 2.9 % BASOPHILS (test code = 1013) 0.7 % IMMATURE GRANULOCYTES (test 0.2 % code = 1036) NUCLEATED RBCS (test code = 0.0 /100WBC'S 1065) PLATELET COUNT (test code = 287 K/UL 1015) ABSOLUTE NEUTROPHILS (test code 8.10 K/UL = 1066) ABSOLUTE LYMPHOCYTES (test code 2.26 K/UL = 1067) ABSOLUTE MONOCYTES (test code = 0.63 K/UL 1068) ABSOLUTE EOSINOPHILS (test code 0.33 K/UL = 1040) ABSOLUTE BASOPHILS (test code = 0.08 K/UL 1069) ABS IMMATURE GRANULOCYTES (test 0.02 K/UL code = 1020) ABS NUCLEATED RBCS (test code = 0.00 K/UL 02331) HEMOGLOBIN [id number] 00:00:00 Test Item Value Reference Range Interpretation Comments HEMOGLOBIN A1c (test code = 09187) 5.9 % HEMOGLOBIN [id number] 00:00:00 Test Item Value Reference Range Interpretation Comments HEMOGLOBIN A1c (test code = 96930) 5.9 % HEMOGLOBIN [id number] 00:00:00 Test Item Value Reference Range Interpretation Comments HEMOGLOBIN A1c (test code = 69065) 5.9 % LIPID [id number] 00:00:00 Test Item Value Reference Range Interpretation Comments CHOLESTEROL (test code = 2210) 178 MG/DL TRIGLYCERIDES (test code = 2232) 120 MG/DL HDL CHOLESTEROL (test code = 2220) 57 MG/DL CALC LDL CHOL (test code = 2237) 99 MG/DL RISK RATIO LDL/HDL (test code = 1.74 RATIO 2238) LIPID [id number] 00:00:00 Test Item Value Reference Range Interpretation Comments CHOLESTEROL (test code = 2210) 178 MG/DL TRIGLYCERIDES (test code = 2232) 120 MG/DL HDL CHOLESTEROL (test code = 2220) 57 MG/DL CALC LDL CHOL (test code = 2237) 99 MG/DL RISK RATIO LDL/HDL (test code = 1.74 RATIO 2238) COMPREHENSIVE METABOLIC [id number] 00:00:00 Test Item Value Reference Range Interpretation Comments GLUCOSE (test code = 2217) 98 MG/DL BUN (test code = 2208) 12 MG/DL CREATININE (test code = 2214) 1.11 MG/DL eGFR (2020 CKD-EPI) (test code 68 ML/MIN/1.73 = 36802) CALC BUN/CREAT (test code = 11 RATIO 2235) SODIUM (test code = 2231) 139 MEQ/L POTASSIUM (test code = 2228) 4.0 MEQ/L CHLORIDE (test code = 2215) 104 MEQ/L CARBON DIOXIDE (test code = 21 MEQ/L 2205) CALCIUM (test code = 2209) 9.3 MG/DL PROTEIN, TOTAL (test code = 6.5 G/DL 2228) ALBUMIN (test code = 2201) 3.8 G/DL CALC GLOBULIN (test code = 2.7 G/DL 0) CALC A/G RATIO (test code = 1.4 RATIO 2234) BILIRUBIN, TOTAL (test code = <0.2 MG/DL 2206) ALKALINE PHOSPHATASE (test 124 U/L code = 2204) AST (test code = 2218) 31 U/L ALT (test code = 2219) 39 U/L COMPREHENSIVE METABOLIC [id number] 00:00:00 Test Item Value Reference Range Interpretation Comments GLUCOSE (test code = 2217) 98 MG/DL BUN (test code = 2208) 12 MG/DL CREATININE (test code = 2214) 1.11 MG/DL eGFR (2020 CKD-EPI) (test code 68 ML/MIN/1.73 = 47874) CALC BUN/CREAT (test code = 11 RATIO 2235) SODIUM (test code = 2231) 139 MEQ/L POTASSIUM (test code = 2228) 4.0 MEQ/L CHLORIDE (test code = 2215) 104 MEQ/L CARBON DIOXIDE (test code = 21 MEQ/L 2205) CALCIUM (test code = 2209) 9.3 MG/DL PROTEIN, TOTAL (test code = 6.5 G/DL 2228) ALBUMIN (test code = 2201) 3.8 G/DL CALC GLOBULIN (test code = 2.7 G/DL 2239) CALC A/G RATIO (test code = 1.4 RATIO 2233) BILIRUBIN, TOTAL (test code = <0.2 MG/DL 2206) ALKALINE PHOSPHATASE (test 124 U/L code = 2204) AST (test code = 2218) 31 U/L ALT (test code = 2219) 39 U/L RPR REFLEX TO T. PALLIDUM - [id number] 00:00:00 Test Item Value Reference Range Interpretation Comments RPR (test code = 79529) NON-REACTIVE RPR TITER (test code = 3500) NOT INDIC. TITER RPR REFLEX TO T. PALLIDUM - [id number] 00:00:00 Test Item Value Reference Range Interpretation Comments RPR (test code = 70629) NON-REACTIVE RPR TITER (test code = 3500) NOT INDIC. TITER ACUTE HEPATITIS [id number] 00:00:00 Test Item Value Reference Range Interpretation Comments HEPATITIS A IgM (test code = NON-REACTIVE 50666) HEPATITIS B CORE IgM (test code NON-REACTIVE = 4644) HEPATITIS B SURF AG (test code = NON-REACTIVE 2739) HEPATITIS C ANTIBODY (test code NON-REACTIVE = 4675) INTERPRETATION HEPATITIS A: (NOTE) (test code = 2552) INTERPRETATION HEPATITIS B: (NOTE) (test code = 49415) INTERPRETATION HEPATITIS C: (NOTE) (test code = 56718) ACUTE HEPATITIS [id number] 00:00:00 Test Item Value Reference Range Interpretation Comments HEPATITIS A IgM (test code = NON-REACTIVE 78297) HEPATITIS B CORE IgM (test code NON-REACTIVE = 4644) HEPATITIS B SURF AG (test code = NON-REACTIVE 2739) HEPATITIS C ANTIBODY (test code NON-REACTIVE = 4675) INTERPRETATION HEPATITIS A: (NOTE) (test code = 2552) INTERPRETATION HEPATITIS B: (NOTE) (test code = 83170) INTERPRETATION HEPATITIS C: (NOTE) (test code = 84577) HIV 1/2 4TH GEN, RFLX [id number] 00:00:00 Test Item Value Reference Range Interpretation Comments HIV 1/2 4TH GEN, RFLX CONF (test NON-REACTIVE code = 3514) HIV 1/2 4TH GEN, RFLX [id number] 00:00:00 Test Item Value Reference Range Interpretation Comments HIV 1/2 4TH GEN, RFLX CONF (test NON-REACTIVE code = 3514) CULTURE, [id number] 09:15:16SPECIMEN NUMBER: [id number] CULTURE, URINE SPECIMEN NUMBER: [id number] SPECIMEN COMMENT: URINE SOURCE:URINE REPORT STATUS: FINAL FINAL REPORT: 01/06/2022 >100,000 CFU/ML UROGENITAL BEBE PRESENT NO CO MMON PATHOGENSCULTURE, [id number] 00:00:00 Test Item Value Reference Range Interpretation Comments CULTURE, URINE (test SPECIMEN NUMBER: code = 14952) [id number] CULTURE, [id number] 00:00:00 Test Item Value Reference Range Interpretation Comments CULTURE, URINE (test SPECIMEN NUMBER: code = 05039) [id number] TSH, THIRD [id number] 04:26:55 Test Item Value Reference Range Interpretation Comments TSH, THIRD 1.770 UIU/ML 0.400-4.100 UNLESS OTHERWI SE GENERATION (test INDICATED, ALL TESTING code = 2821) PERFORMED [facility], [address] DIRECTOR: NOE OJEDA M.D. CLIA NUMBER [id number] CAP ACCREDITATION N O. [id number] 00:00:00 Test Item Value Reference Range Interpretation Comments TSH, THIRD GENERATION (test code 1.770 UIU/ML = 2821) [id number] 00:00:00 Test Item Value Reference Range Interpretation Comments TSH, THIRD GENERATION (test code 1.770 UIU/ML = 2821) [id number] 00:00:00 Test Item Value Reference Range Interpretation Comments TSH, THIRD GENERATION (test code 1.770 UIU/ML = 2821) GC AND CHLAMYDIA, AMPLIFIED, [id number] 00:00:00 Test Item Value Reference Range Interpretation Comments GONORRHEA, NAAT (test code = 28986) NEGATIVE CHLAMYDIA, NAAT (test code = 30778) NEGATIVE GC AND CHLAMYDIA, AMPLIFIED, [id number] 00:00:00 Test Item Value Reference Range Interpretation Comments GONORRHEA, NAAT (test code = 74890) NEGATIVE CHLAMYDIA, NAAT (test code = 63507) NEGATIVE GC AND CHLAMYDIA, AMPLIFIED, [id number] 00:00:00 Test Item Value Reference Range Interpretation Comments GONORRHEA, NAAT (test code = 28781) NEGATIVE CHLAMYDIA, NAAT (test code = 58263) NEGATIVE HIV AB/AG COMBO RFLX [id number] 00:00:00 Test Item Value Reference Range Interpretation Comments HIV 1/2 4TH GEN, RFLX CONF (test NON-REACTIVE code = 3514) HIV AB/AG COMBO RFLX [id number] 00:00:00 Test Item Value Reference Range Interpretation Comments HIV 1/2 4TH GEN, RFLX CONF (test NON-REACTIVE code = 3514) [id number] 00:00:00 Test Item Value Reference Range Interpretation Comments RPR RESULT (test code = NON-REACTIVE 3501) RPR TITER (test code = 3500) NOT INDIC. TITER GC AND CHLAMYDIA, AMPLIFIED, [id number] 00:00:00 Test Item Value Reference Range Interpretation Comments GONORRHEA, NAAT (test code = 26047) NEGATIVE CHLAMYDIA, NAAT (test code = 38514) NEGATIVE [id number] 00:00:00 Test Item Value Reference Range Interpretation Comments RPR RESULT (test code = NON-REACTIVE 3501) RPR TITER (test code = 3500) NOT INDIC. TITER [id number] 00:00:00 Test Item Value Reference Range Interpretation Comments RPR RESULT (test code = NON-REACTIVE 3501) RPR TITER (test code = 3500) NOT INDIC. TITER HEPATITIS PROFILE (A,B,C)2020-12-11 00:00:00 Test Item Value Reference Range Interpretation Comments HEPATITIS A TOTAL AB (test code REACTIVE = 2725) HEPATITIS B SURF AG (test code = NON-REACTIVE 1929) HEP B CORE TOTAL AB (test code = NON-REACTIVE 5709) HEPATITIS B SURFACE AB (test NON-REACTIVE code = 2737) HEPATITIS C ANTIBODY (test code NON-REACTIVE = 4675) INTERPRETATION HEPATITIS A: (NOTE) (test code = 2552) INTERPRETATION HEPATITIS B: (NOTE) (test code = 28947) INTERPRETATION HEPATITIS C: (NOTE) (test code = 11232) HEPATITIS PROFILE (A,B,C)2020-12-11 00:00:00 Test Item Value Reference Range Interpretation Comments HEPATITIS A TOTAL AB (test code REACTIVE = 2725) HEPATITIS B SURF AG (test code = NON-REACTIVE 2739) HEP B CORE TOTAL AB (test code = NON-REACTIVE 2729) HEPATITIS B SURFACE AB (test NON-REACTIVE code = 2737) HEPATITIS C ANTIBODY (test code NON-REACTIVE = 4675) INTERPRETATION HEPATITIS A: (NOTE) (test code = 2552) INTERPRETATION HEPATITIS B: (NOTE) (test code = 76727) INTERPRETATION HEPATITIS C: (NOTE) (test code = 37882) HEPATITIS A IgM [REFLEX]2020-12-11 00:00:00 Test Item Value Reference Range Interpretation Comments HEPATITIS A IgM (test code = NON-REACTIVE 2728) HIV AB/AG COMBO RFLX [id number] 00:00:00 Test Item Value Reference Range Interpretation Comments HIV 1/2 4TH GEN, RFLX CONF (test NON-REACTIVE code = 3514) HIV AB/AG COMBO RFLX [id number] 00:00:00 Test Item Value Reference Range Interpretation Comments HIV 1/2 4TH GEN, RFLX CONF (test NON-REACTIVE code = 3514) [id number] 00:00:00 Test Item Value Reference Range Interpretation Comments RPR RESULT (test code = NON-REACTIVE 3501) RPR TITER (test code = 3500) NOT INDIC. TITER [id number] 00:00:00 Test Item Value Reference Range Interpretation Comments RPR RESULT (test code = NON-REACTIVE 3501) RPR TITER (test code = 3500) NOT INDIC. TITER [id number] 00:00:00 Test Item Value Reference Range Interpretation Comments RPR RESULT (test code = NON-REACTIVE 3501) RPR TITER (test code = 3500) NOT INDIC. TITER HEPATITIS PROFILE (A,B,C)2020-12-11 00:00:00 Test Item Value Reference Range Interpretation Comments HEPATITIS A TOTAL AB (test code REACTIVE = 2725) HEPATITIS B SURF AG (test code = NON-REACTIVE 2739) HEP B CORE TOTAL AB (test code = NON-REACTIVE 2729) HEPATITIS B SURFACE AB (test NON-REACTIVE code = 2737) HEPATITIS C ANTIBODY (test code NON-REACTIVE = 4675) INTERPRETATION HEPATITIS A: (NOTE) (test code = 2552) INTERPRETATION HEPATITIS B: (NOTE) (test code = 93272) INTERPRETATION HEPATITIS C: (NOTE) (test code = 89194) HEPATITIS PROFILE (A,B,C)2020-12-11 00:00:00 Test Item Value Reference Range Interpretation Comments HEPATITIS A TOTAL AB (test code REACTIVE = 2725) HEPATITIS B SURF AG (test code = NON-REACTIVE 2739) HEP B CORE TOTAL AB (test code = NON-REACTIVE 2729) HEPATITIS B SURFACE AB (test NON-REACTIVE code = 2737) HEPATITIS C ANTIBODY (test code NON-REACTIVE = 4675) INTERPRETATION HEPATITIS A: (NOTE) (test code = 2552) INTERPRETATION HEPATITIS B: (NOTE) (test code = 87875) INTERPRETATION HEPATITIS C: (NOTE) (test code = 02306) HEPATITIS A IgM [REFLEX]2020-12-11 00:00:00 Test Item Value Reference Range Interpretation Comments HEPATITIS A IgM (test code = NON-REACTIVE 8) LIPID [id number] 00:00:00 Test Item Value Reference Range Interpretation Comments CHOLESTEROL (test code = 2210) 163 MG/DL TRIGLYCERIDES (test code = 2232) 111 MG/DL HDL CHOLESTEROL (test code = 2220) 67 MG/DL CALC LDL CHOL (test code = 2237) 77 MG/DL RISK RATIO LDL/HDL (test code = 1.15 RATIO 2238) LIPID [id number] 00:00:00 Test Item Value Reference Range Interpretation Comments CHOLESTEROL (test code = 2210) 163 MG/DL TRIGLYCERIDES (test code = 2232) 111 MG/DL HDL CHOLESTEROL (test code = 2220) 67 MG/DL CALC LDL CHOL (test code = 2237) 77 MG/DL RISK RATIO LDL/HDL (test code = 1.15 RATIO 2238) COMPREHENSIVE METABOLIC [id number] 00:00:00 Test Item Value Reference Range Interpretation Comments GLUCOSE (test code = 2217) 97 MG/DL BUN (test code = 2208) 13 MG/DL CREATININE (test code = 2214) 1.14 MG/DL eGFR AMER. (test code 75 ML/MIN/1.73 = 68429) eGFR NON- AMER. (test 65 ML/MIN/1.73 code = 35450) CALC BUN/CREAT (test code = 11 RATIO 2235) SODIUM (test code = 2231) 139 MEQ/L POTASSIUM (test code = 2228) 4.3 MEQ/L CHLORIDE (test code = 2215) 104 MEQ/L CARBON DIOXIDE (test code = 23 MEQ/L 2205) CALCIUM (test code = 2209) 9.5 MG/DL PROTEIN, TOTAL (test code = 6.8 G/DL 2228) ALBUMIN (test code = 2201) 4.1 G/DL CALC GLOBULIN (test code = 2.7 G/DL 2240) CALC A/G RATIO (test code = 1.5 RATIO 2234) BILIRUBIN, TOTAL (test code = <0.2 MG/DL 2206) ALKALINE PHOSPHATASE (test 134 U/L code = 2204) AST (test code = 2218) 34 U/L ALT (test code = 2219) 49 U/L COMPREHENSIVE METABOLIC [id number] 00:00:00 Test Item Value Reference Range Interpretation Comments GLUCOSE (test code = 2217) 97 MG/DL BUN (test code = 2208) 13 MG/DL CREATININE (test code = 2214) 1.14 MG/DL eGFR AMER. (test code 75 ML/MIN/1.73 = 51360) eGFR NON- AMER. (test 65 ML/MIN/1.73 code = 55397) CALC BUN/CREAT (test code = 11 RATIO 2235) SODIUM (test code = 2231) 139 MEQ/L POTASSIUM (test code = 2228) 4.3 MEQ/L CHLORIDE (test code = 2215) 104 MEQ/L CARBON DIOXIDE (test code = 23 MEQ/L 2205) CALCIUM (test code = 2209) 9.5 MG/DL PROTEIN, TOTAL (test code = 6.8 G/DL 2228) ALBUMIN (test code = 2201) 4.1 G/DL CALC GLOBULIN (test code = 2.7 G/DL 2240) CALC A/G RATIO (test code = 1.5 RATIO 2234) BILIRUBIN, TOTAL (test code = <0.2 MG/DL 2206) ALKALINE PHOSPHATASE (test 134 U/L code = 2204) AST (test code = 2218) 34 U/L ALT (test code = 2219) 49 U/L LIPID [id number] 00:00:00 Test Item Value Reference Range Interpretation Comments CHOLESTEROL (test code = 2210) 163 MG/DL TRIGLYCERIDES (test code = 2232) 111 MG/DL HDL CHOLESTEROL (test code = 2220) 67 MG/DL CALC LDL CHOL (test code = 2237) 77 MG/DL RISK RATIO LDL/HDL (test code = 1.15 RATIO 2238) LIPID [id number] 00:00:00 Test Item Value Reference Range Interpretation Comments CHOLESTEROL (test code = 2210) 163 MG/DL TRIGLYCERIDES (test code = 2232) 111 MG/DL HDL CHOLESTEROL (test code = 2220) 67 MG/DL CALC LDL CHOL (test code = 2237) 77 MG/DL RISK RATIO LDL/HDL (test code = 1.15 RATIO 2238) COMPREHENSIVE METABOLIC [id number] 00:00:00 Test Item Value Reference Range Interpretation Comments GLUCOSE (test code = 2217) 97 MG/DL BUN (test code = 2208) 13 MG/DL CREATININE (test code = 2214) 1.14 MG/DL eGFR AMER. (test code 75 ML/MIN/1.73 = 28781) eGFR NON- AMER. (test 65 ML/MIN/1.73 code = 36554) CALC BUN/CREAT (test code = 11 RATIO 2235) SODIUM (test code = 2231) 139 MEQ/L POTASSIUM (test code = 2228) 4.3 MEQ/L CHLORIDE (test code = 2215) 104 MEQ/L CARBON DIOXIDE (test code = 23 MEQ/L 2205) CALCIUM (test code = 2209) 9.5 MG/DL PROTEIN, TOTAL (test code = 6.8 G/DL 2228) ALBUMIN (test code = 2201) 4.1 G/DL CALC GLOBULIN (test code = 2.7 G/DL 2239) CALC A/G RATIO (test code = 1.5 RATIO 2234) BILIRUBIN, TOTAL (test code = <0.2 MG/DL 2206) ALKALINE PHOSPHATASE (test 134 U/L code = 2204) AST (test code = 2218) 34 U/L ALT (test code = 2219) 49 U/L COMPREHENSIVE METABOLIC [id number] 00:00:00 Test Item Value Reference Range Interpretation Comments GLUCOSE (test code = 2217) 97 MG/DL BUN (test code = 2208) 13 MG/DL CREATININE (test code = 2214) 1.14 MG/DL eGFR AMER. (test code 75 ML/MIN/1.73 = 96777) eGFR NON- AMER. (test 65 ML/MIN/1.73 code = 78963) CALC BUN/CREAT (test code = 11 RATIO 2235) SODIUM (test code = 2231) 139 MEQ/L POTASSIUM (test code = 2228) 4.3 MEQ/L CHLORIDE (test code = 2215) 104 MEQ/L CARBON DIOXIDE (test code = 23 MEQ/L 2205) CALCIUM (test code = 2209) 9.5 MG/DL PROTEIN, TOTAL (test code = 6.8 G/DL 2228) ALBUMIN (test code = 2201) 4.1 G/DL CALC GLOBULIN (test code = 2.7 G/DL 2240) CALC A/G RATIO (test code = 1.5 RATIO 2234) BILIRUBIN, TOTAL (test code = <0.2 MG/DL 2206) ALKALINE PHOSPHATASE (test 134 U/L code = 2204) AST (test code = 2218) 34 U/L ALT (test code = 2219) 49 U/L PAP TEST, THINPREP, [id number] 00:00:00 Test Item Value Reference Range Interpretation Comments SOURCE: (test code = Cervical/Endocervical 8001) SLIDES: (test code = 1 8011) LMP: (test code = 8021) 05/27/2019 SPECIMEN ADEQUACY: (test (NOTE) code = 30132) INTERPRETATION: (test NILM/NO EPITH. code = 26230) ABNORMALITY;SEE BELOW OTHER COMMENTS: (test (NOTE) code = 8081) CLINIC OFFICE MANAGER: (test BENJAMIN Klein code = 8101) PROSPER SPANN(ASCP) QC TECHNOLOGIST: (test PROSPER Holman(ASCP) code = 8111) LOCATION: (test code = (NOTE) 51402) CPT: (test code = 8140) (NOTE) PAP TEST, THINPREP, [id number] 00:00:00 Test Item Value Reference Range Interpretation Comments SOURCE: (test code = Cervical/Endocervical 8001) SLIDES: (test code = 1 8011) LMP: (test code = 8021) 05/27/2019 SPECIMEN ADEQUACY: (test (NOTE) code = 25989) INTERPRETATION: (test NILM/NO EPITH. code = 60463) ABNORMALITY;SEE BELOW OTHER COMMENTS: (test (NOTE) code = 8081) CLINIC OFFICE MANAGER: (test BENJAMIN Klein code = 8101) PROSPER SPANN(ASCP) QC TECHNOLOGIST: (test PROSPER Holman(ASCP) code = 8111) LOCATION: (test code = (NOTE) 69919) CPT: (test code = 8140) (NOTE) PAP TEST, THINPREP, [id number] 00:00:00 Test Item Value Reference Range Interpretation Comments SOURCE: (test code = Cervical/Endocervical 8001) SLIDES: (test code = 1 8011) LMP: (test code = 8021) 05/27/2019 SPECIMEN ADEQUACY: (test (NOTE) code = 42232) INTERPRETATION: (test NILM/NO EPITH. code = 95566) ABNORMALITY;SEE BELOW OTHER COMMENTS: (test (NOTE) code = 8081) CLINIC OFFICE MANAGER: (test BENJAMIN Klein code = 8101) PROSPER SPANN(ASCP) QC TECHNOLOGIST: (test PROSPER Holman(ASCP) code = 8111) LOCATION: (test code = (NOTE) 94852) CPT: (test code = 8140) (NOTE) PAP TEST, THINPREP, [id number] 00:00:00 Test Item Value Reference Range Interpretation Comments SOURCE: (test code = Cervical/Endocervical 8001) SLIDES: (test code = 1 8011) LMP: (test code = 8021) 05/27/2019 SPECIMEN ADEQUACY: (test (NOTE) code = 02986) INTERPRETATION: (test NILM/NO EPITH. code = 61577) ABNORMALITY;SEE BELOW OTHER COMMENTS: (test (NOTE) code = 8081) CLINIC OFFICE MANAGER: (test BENJAMIN Klein code = 8101) PROSPER SPANN(ASCP) QC TECHNOLOGIST: (test Jamari Neal,[place](ASCP) code = 8111) LOCATION: (test code = (NOTE) 63693) CPT: (test code = 8140) (NOTE) GC AND CHLAMYDIA AMPLIFIED, [id number] 00:00:00 Test Item Value Reference Range Interpretation Comments GONORRHEA, TMA (test code = 37571) NEGATIVE CHLAMYDIA, TMA (test code = 82867) NEGATIVE GC AND CHLAMYDIA AMPLIFIED, [id number] 00:00:00 Test Item Value Reference Range Interpretation Comments GONORRHEA, TMA (test code = 57183) NEGATIVE CHLAMYDIA, TMA (test code = 68836) NEGATIVE ACUTE HEPATITIS [id number] 00:00:00 Test Item Value Reference Range Interpretation Comments HEPATITIS A IgM (test code = NON-REACTIVE 17941) HEPATITIS B CORE IgM (test code NON-REACTIVE = 4644) HEPATITIS B SURF AG (test code = NON-REACTIVE 2739) HEPATITIS C ANTIBODY (test code NON-REACTIVE = 4675) INTERPRETATION HEPATITIS A: (NOTE) (test code = 2552) INTERPRETATION HEPATITIS B: (NOTE) (test code = 41874) INTERPRETATION HEPATITIS C: (NOTE) (test code = 63572) ACUTE HEPATITIS [id number] 00:00:00 Test Item Value Reference Range Interpretation Comments HEPATITIS A IgM (test code = NON-REACTIVE 42884) HEPATITIS B CORE IgM (test code NON-REACTIVE = 4644) HEPATITIS B SURF AG (test code = NON-REACTIVE 2739) HEPATITIS C ANTIBODY (test code NON-REACTIVE = 4675) INTERPRETATION HEPATITIS A: (NOTE) (test code = 2552) INTERPRETATION HEPATITIS B: (NOTE) (test code = 53441) INTERPRETATION HEPATITIS C: (NOTE) (test code = 71409) GC AND CHLAMYDIA AMPLIFIED, [id number] 00:00:00 Test Item Value Reference Range Interpretation Comments GONORRHEA, TMA (test code = 57935) NEGATIVE CHLAMYDIA, TMA (test code = 17041) NEGATIVE ACUTE HEPATITIS [id number] 00:00:00 Test Item Value Reference Range Interpretation Comments HEPATITIS A IgM (test code = NON-REACTIVE 10109) HEPATITIS B CORE IgM (test code NON-REACTIVE = 4644) HEPATITIS B SURF AG (test code = NON-REACTIVE 2739) HEPATITIS C ANTIBODY (test code NON-REACTIVE = 4675) INTERPRETATION HEPATITIS A: (NOTE) (test code = 2552) INTERPRETATION HEPATITIS B: (NOTE) (test code = 17215) INTERPRETATION HEPATITIS C: (NOTE) (test code = 22486) GC AND CHLAMYDIA AMPLIFIED, [id number] 00:00:00 Test Item Value Reference Range Interpretation Comments GONORRHEA, TMA (test code = 74179) NEGATIVE CHLAMYDIA, TMA (test code = 01235) NEGATIVE HIV AB/AG COMBO RFLX [id number] 00:00:00 Test Item Value Reference Range Interpretation Comments HIV 1/2 4TH GEN, RFLX CONF (test NON-REACTIVE code = 3514) HIV AB/AG COMBO RFLX [id number] 00:00:00 Test Item Value Reference Range Interpretation Comments HIV 1/2 4TH GEN, RFLX CONF (test NON-REACTIVE code = 3514) ACUTE HEPATITIS [id number] 00:00:00 Test Item Value Reference Range Interpretation Comments HEPATITIS A IgM (test code = NON-REACTIVE 62516) HEPATITIS B CORE IgM (test code NON-REACTIVE = 4644) HEPATITIS B SURF AG (test code = NON-REACTIVE 4269) HEPATITIS C ANTIBODY (test code NON-REACTIVE = 4675) INTERPRETATION HEPATITIS A: (NOTE) (test code = 2552) INTERPRETATION HEPATITIS B: (NOTE) (test code = 00030) INTERPRETATION HEPATITIS C: (NOTE) (test code = 42495) [id number] 00:00:00 Test Item Value Reference Range Interpretation Comments RPR RESULT (test code = NON-REACTIVE 3501) RPR TITER (test code = 3500) NOT INDIC. TITER [id number] 00:00:00 Test Item Value Reference Range Interpretation Comments RPR RESULT (test code = NON-REACTIVE 3501) RPR TITER (test code = 3500) NOT INDIC. TITER HPV HIGH RISK WITH GENOTYPE, [id number] 00:00:00 Test Item Value Reference Range Interpretation Comments HPV HIGH RISK INTERP (test code = NEGATIVE 44671) HPV 16 (test code = 73851) NEGATIVE HPV 18 (test code = 37278) NEGATIVE HPV, HR, OTHER GENOTYPES (test code NEGATIVE = 72534) [id number] 00:00:00 Test Item Value Reference Range Interpretation Comments RPR RESULT (test code = NON-REACTIVE 3501) RPR TITER (test code = 3500) NOT INDIC. TITER HPV HIGH RISK WITH GENOTYPE, [id number] 00:00:00 Test Item Value Reference Range Interpretation Comments HPV HIGH RISK INTERP (test code = NEGATIVE 61459) HPV 16 (test code = 38301) NEGATIVE HPV 18 (test code = 83390) NEGATIVE HPV, HR, OTHER GENOTYPES (test code NEGATIVE = 92982) HIV AB/AG COMBO RFLX [id number] 00:00:00 Test Item Value Reference Range Interpretation Comments HIV 1/2 4TH GEN, RFLX CONF (test NON-REACTIVE code = 3514) HIV AB/AG COMBO RFLX [id number] 00:00:00 Test Item Value Reference Range Interpretation Comments HIV 1/2 4TH GEN, RFLX CONF (test NON-REACTIVE code = 3514) [id number] 00:00:00 Test Item Value Reference Range Interpretation Comments RPR RESULT (test code = NON-REACTIVE 3501) RPR TITER (test code = 3500) NOT INDIC. TITER [id number] 00:00:00 Test Item Value Reference Range Interpretation Comments RPR RESULT (test code = NON-REACTIVE 3501) RPR TITER (test code = 3500) NOT INDIC. TITER [id number] 00:00:00 Test Item Value Reference Range Interpretation Comments RPR RESULT (test code = NON-REACTIVE 3501) RPR TITER (test code = 3500) NOT INDIC. TITER HPV HIGH RISK WITH GENOTYPE, [id number] 00:00:00 Test Item Value Reference Range Interpretation Comments HPV HIGH RISK INTERP (test code = NEGATIVE 12239) HPV 16 (test code = 13706) NEGATIVE HPV 18 (test code = 90639) NEGATIVE HPV, HR, OTHER GENOTYPES (test code NEGATIVE = 24304) HPV HIGH RISK WITH GENOTYPE, [id number] 00:00:00 Test Item Value Reference Range Interpretation Comments HPV HIGH RISK INTERP (test code = NEGATIVE 99105) HPV 16 (test code = 48247) NEGATIVE HPV 18 (test code = 32670) NEGATIVE HPV, HR, OTHER GENOTYPES (test code NEGATIVE = 09915) CBC W/AUTO [id number] 00:00:00 Test Item Value Reference Range Interpretation Comments WBC (test code = 1001) 11.9 K/UL RBC (test code = 1002) 4.72 M/UL HEMOGLOBIN (test code = 1003) 13.5 G/DL HEMATOCRIT (test code = 1004) 40.9 % MCV (test code = 1005) 86.7 fL MCH (test code = 1006) 28.6 PG MCHC (test code = 1007) 33.0 G/DL RDW (test code = 1038) 14.2 % NEUTROPHILS (test code = 1008) 62.7 % LYMPHOCYTES (test code = 1010) 26.2 % MONOCYTES (test code = 1011) 8.3 % EOSINOPHILS (test code = 1012) 2.3 % BASOPHILS (test code = 1013) 0.5 % PLATELET COUNT (test code = 1015) 259 K/UL CBC W/AUTO [id number] 00:00:00 Test Item Value Reference Range Interpretation Comments WBC (test code = 1001) 11.9 K/UL RBC (test code = 1002) 4.72 M/UL HEMOGLOBIN (test code = 1003) 13.5 G/DL HEMATOCRIT (test code = 1004) 40.9 % MCV (test code = 1005) 86.7 fL MCH (test code = 1006) 28.6 PG MCHC (test code = 1007) 33.0 G/DL RDW (test code = 1038) 14.2 % NEUTROPHILS (test code = 1008) 62.7 % LYMPHOCYTES (test code = 1010) 26.2 % MONOCYTES (test code = 1011) 8.3 % EOSINOPHILS (test code = 1012) 2.3 % BASOPHILS (test code = 1013) 0.5 % PLATELET COUNT (test code = 1015) 259 K/UL CBC W/AUTO [id number] 00:00:00 Test Item Value Reference Range Interpretation Comments WBC (test code = 1001) 11.9 K/UL RBC (test code = 1002) 4.72 M/UL HEMOGLOBIN (test code = 1003) 13.5 G/DL HEMATOCRIT (test code = 1004) 40.9 % MCV (test code = 1005) 86.7 fL MCH (test code = 1006) 28.6 PG MCHC (test code = 1007) 33.0 G/DL RDW (test code = 1038) 14.2 % NEUTROPHILS (test code = 1008) 62.7 % LYMPHOCYTES (test code = 1010) 26.2 % MONOCYTES (test code = 1011) 8.3 % EOSINOPHILS (test code = 1012) 2.3 % BASOPHILS (test code = 1013) 0.5 % PLATELET COUNT (test code = 1015) 259 K/UL CBC W/AUTO [id number] 00:00:00 Test Item Value Reference Range Interpretation Comments WBC (test code = 1001) 11.9 K/UL RBC (test code = 1002) 4.72 M/UL HEMOGLOBIN (test code = 1003) 13.5 G/DL HEMATOCRIT (test code = 1004) 40.9 % MCV (test code = 1005) 86.7 fL MCH (test code = 1006) 28.6 PG MCHC (test code = 1007) 33.0 G/DL RDW (test code = 1038) 14.2 % NEUTROPHILS (test code = 1008) 62.7 % LYMPHOCYTES (test code = 1010) 26.2 % MONOCYTES (test code = 1011) 8.3 % EOSINOPHILS (test code = 1012) 2.3 % BASOPHILS (test code = 1013) 0.5 % PLATELET COUNT (test code = 1015) 259 K/UL LIPID [id number] 00:00:00 Test Item Value Reference Range Interpretation Comments CHOLESTEROL (test code = 2210) 181 MG/DL TRIGLYCERIDES (test code = 2232) 115 MG/DL HDL CHOLESTEROL (test code = 2220) 78 MG/DL CALC LDL CHOL (test code = 2237) 80 MG/DL RISK RATIO LDL/HDL (test code = 1.03 RATIO 2238) LIPID [id number] 00:00:00 Test Item Value Reference Range Interpretation Comments CHOLESTEROL (test code = 2210) 181 MG/DL TRIGLYCERIDES (test code = 2232) 115 MG/DL HDL CHOLESTEROL (test code = 2220) 78 MG/DL CALC LDL CHOL (test code = 2237) 80 MG/DL RISK RATIO LDL/HDL (test code = 1.03 RATIO 2238) HEMOGLOBIN [id number] 00:00:00 Test Item Value Reference Range Interpretation Comments HEMOGLOBIN A1c (test code = 64599) 5.5 % HEMOGLOBIN [id number] 00:00:00 Test Item Value Reference Range Interpretation Comments HEMOGLOBIN A1c (test code = 31090) 5.5 % HEMOGLOBIN [id number] 00:00:00 Test Item Value Reference Range Interpretation Comments HEMOGLOBIN A1c (test code = 72631) 5.5 % CBC W/AUTO [id number] 00:00:00 Test Item Value Reference Range Interpretation Comments WBC (test code = 1001) 11.9 K/UL RBC (test code = 1002) 4.72 M/UL HEMOGLOBIN (test code = 1003) 13.5 G/DL HEMATOCRIT (test code = 1004) 40.9 % MCV (test code = 1005) 86.7 fL MCH (test code = 1006) 28.6 PG MCHC (test code = 1007) 33.0 G/DL RDW (test code = 1038) 14.2 % NEUTROPHILS (test code = 1008) 62.7 % LYMPHOCYTES (test code = 1010) 26.2 % MONOCYTES (test code = 1011) 8.3 % EOSINOPHILS (test code = 1012) 2.3 % BASOPHILS (test code = 1013) 0.5 % PLATELET COUNT (test code = 1015) 259 K/UL COMPREHENSIVE METABOLIC [id number] 00:00:00 Test Item Value Reference Range Interpretation Comments GLUCOSE (test code = 2217) 77 MG/DL BUN (test code = 2208) 11 MG/DL CREATININE (test code = 2214) 0.95 MG/DL eGFR AMER. (test code 95 ML/MIN/1.73 = 54563) eGFR NON- AMER. (test 82 ML/MIN/1.73 code = 41554) CALC BUN/CREAT (test code = 12 RATIO 2235) SODIUM (test code = 2231) 139 MEQ/L POTASSIUM (test code = 2228) 3.9 MEQ/L CHLORIDE (test code = 2215) 100 MEQ/L CARBON DIOXIDE (test code = 22 MEQ/L 2206) CALCIUM (test code = 2209) 9.8 MG/DL PROTEIN, TOTAL (test code = 7.5 G/DL 2228) ALBUMIN (test code = 2201) 4.4 G/DL CALC GLOBULIN (test code = 3.1 G/DL 2240) CALC A/G RATIO (test code = 1.4 RATIO 2234) BILIRUBIN, TOTAL (test code = 0.3 MG/DL 2206) ALKALINE PHOSPHATASE (test 116 U/L code = 2204) AST (test code = 2218) 20 U/L ALT (test code = 2219) 25 U/L COMPREHENSIVE METABOLIC [id number] 00:00:00 Test Item Value Reference Range Interpretation Comments GLUCOSE (test code = 2217) 77 MG/DL BUN (test code = 2208) 11 MG/DL CREATININE (test code = 2214) 0.95 MG/DL eGFR AMER. (test code 95 ML/MIN/1.73 = 68597) eGFR NON- AMER. (test 82 ML/MIN/1.73 code = 33181) CALC BUN/CREAT (test code = 12 RATIO 2235) SODIUM (test code = 2231) 139 MEQ/L POTASSIUM (test code = 2228) 3.9 MEQ/L CHLORIDE (test code = 2215) 100 MEQ/L CARBON DIOXIDE (test code = 22 MEQ/L 220) CALCIUM (test code = 2209) 9.8 MG/DL PROTEIN, TOTAL (test code = 7.5 G/DL 222) ALBUMIN (test code = 2201) 4.4 G/DL CALC GLOBULIN (test code = 3.1 G/DL 2240) CALC A/G RATIO (test code = 1.4 RATIO 2234) BILIRUBIN, TOTAL (test code = 0.3 MG/DL 220) ALKALINE PHOSPHATASE (test 116 U/L code = 2204) AST (test code = 2218) 20 U/L ALT (test code = 2219) 25 U/L HIV AB/AG COMBO RFLX [id number] 00:00:00 Test Item Value Reference Range Interpretation Comments HIV 1/2 4TH GEN, RFLX CONF (test NON-REACTIVE code = 3514) CBC W/AUTO [id number] 00:00:00 Test Item Value Reference Range Interpretation Comments WBC (test code = 1001) 11.9 K/UL RBC (test code = 1002) 4.72 M/UL HEMOGLOBIN (test code = 1003) 13.5 G/DL HEMATOCRIT (test code = 1004) 40.9 % MCV (test code = 1005) 86.7 fL MCH (test code = 1006) 28.6 PG MCHC (test code = 1007) 33.0 G/DL RDW (test code = 1038) 14.2 % NEUTROPHILS (test code = 1008) 62.7 % LYMPHOCYTES (test code = 1010) 26.2 % MONOCYTES (test code = 1011) 8.3 % EOSINOPHILS (test code = 1012) 2.3 % BASOPHILS (test code = 1013) 0.5 % PLATELET COUNT (test code = 1015) 259 K/UL HIV AB/AG COMBO RFLX [id number] 00:00:00 Test Item Value Reference Range Interpretation Comments HIV 1/2 4TH GEN, RFLX CONF (test NON-REACTIVE code = 3514) ACUTE HEPATITIS [id number] 00:00:00 Test Item Value Reference Range Interpretation Comments HEPATITIS A IgM (test code = NON-REACTIVE 08292) HEPATITIS B CORE IgM (test code NON-REACTIVE = 4644) HEPATITIS B SURF AG (test code = NON-REACTIVE 2739) HEPATITIS C ANTIBODY (test code NON-REACTIVE = 4675) HCV INDEX (test code = 95571) 0.16 INTERPRETATION HEPATITIS A: (NOTE) (test code = 2552) INTERPRETATION HEPATITIS B: (NOTE) (test code = 27150) INTERPRETATION HEPATITIS C: (NOTE) (test code = 57820) ACUTE HEPATITIS [id number] 00:00:00 Test Item Value Reference Range Interpretation Comments HEPATITIS A IgM (test code = NON-REACTIVE 64113) HEPATITIS B CORE IgM (test code NON-REACTIVE = 4644) HEPATITIS B SURF AG (test code = NON-REACTIVE 2739) HEPATITIS C ANTIBODY (test code NON-REACTIVE = 4675) HCV INDEX (test code = 52229) 0.16 INTERPRETATION HEPATITIS A: (NOTE) (test code = 2552) INTERPRETATION HEPATITIS B: (NOTE) (test code = 72937) INTERPRETATION HEPATITIS C: (NOTE) (test code = 85551) GC AND CHLAMYDIA, AMPLIFIED, [id number] 00:00:00 Test Item Value Reference Range Interpretation Comments GONORRHEA, TMA (test code = 52122) NEGATIVE CHLAMYDIA, TMA (test code = 61513) NEGATIVE GC AND CHLAMYDIA, AMPLIFIED, [id number] 00:00:00 Test Item Value Reference Range Interpretation Comments GONORRHEA, TMA (test code = 75289) NEGATIVE CHLAMYDIA, TMA (test code = 07440) NEGATIVE [id number] 00:00:00 Test Item Value Reference Range Interpretation Comments RPR RESULT (test code = NON-REACTIVE 3501) RPR TITER (test code = 3500) NOT INDIC. TITER [id number] 00:00:00 Test Item Value Reference Range Interpretation Comments RPR RESULT (test code = NON-REACTIVE 3501) RPR TITER (test code = 3500) NOT INDIC. TITER [id number] 00:00:00 Test Item Value Reference Range Interpretation Comments RPR RESULT (test code = NON-REACTIVE 3501) RPR TITER (test code = 3500) NOT INDIC. TITER LIPID [id number] 00:00:00 Test Item Value Reference Range Interpretation Comments CHOLESTEROL (test code = 2210) 181 MG/DL TRIGLYCERIDES (test code = 2232) 115 MG/DL HDL CHOLESTEROL (test code = 2220) 78 MG/DL CALC LDL CHOL (test code = 2237) 80 MG/DL RISK RATIO LDL/HDL (test code = 1.03 RATIO 2238) LIPID [id number] 00:00:00 Test Item Value Reference Range Interpretation Comments CHOLESTEROL (test code = 2210) 181 MG/DL TRIGLYCERIDES (test code = 2232) 115 MG/DL HDL CHOLESTEROL (test code = 2220) 78 MG/DL CALC LDL CHOL (test code = 2237) 80 MG/DL RISK RATIO LDL/HDL (test code = 1.03 RATIO 2238) HEMOGLOBIN [id number] 00:00:00 Test Item Value Reference Range Interpretation Comments HEMOGLOBIN A1c (test code = 65450) 5.5 % HEMOGLOBIN [id number] 00:00:00 Test Item Value Reference Range Interpretation Comments HEMOGLOBIN A1c (test code = 10825) 5.5 % HEMOGLOBIN [id number] 00:00:00 Test Item Value Reference Range Interpretation Comments HEMOGLOBIN A1c (test code = 49051) 5.5 % COMPREHENSIVE METABOLIC [id number] 00:00:00 Test Item Value Reference Range Interpretation Comments GLUCOSE (test code = 2217) 77 MG/DL BUN (test code = 2208) 11 MG/DL CREATININE (test code = 2214) 0.95 MG/DL eGFR AMER. (test code 95 ML/MIN/1.73 = 06168) eGFR NON- AMER. (test 82 ML/MIN/1.73 code = 08836) CALC BUN/CREAT (test code = 12 RATIO 2235) SODIUM (test code = 2231) 139 MEQ/L POTASSIUM (test code = 2228) 3.9 MEQ/L CHLORIDE (test code = 2215) 100 MEQ/L CARBON DIOXIDE (test code = 22 MEQ/L 2206) CALCIUM (test code = 2209) 9.8 MG/DL PROTEIN, TOTAL (test code = 7.5 G/DL 2229) ALBUMIN (test code = 2201) 4.4 G/DL CALC GLOBULIN (test code = 3.1 G/DL 2240) CALC A/G RATIO (test code = 1.4 RATIO 2234) BILIRUBIN, TOTAL (test code = 0.3 MG/DL 220) ALKALINE PHOSPHATASE (test 116 U/L code = 2204) AST (test code = 2218) 20 U/L ALT (test code = 2219) 25 U/L COMPREHENSIVE METABOLIC [id number] 00:00:00 Test Item Value Reference Range Interpretation Comments GLUCOSE (test code = 2217) 77 MG/DL BUN (test code = 2208) 11 MG/DL CREATININE (test code = 2214) 0.95 MG/DL eGFR AMER. (test code 95 ML/MIN/1.73 = 76265) eGFR NON- AMER. (test 82 ML/MIN/1.73 code = 70935) CALC BUN/CREAT (test code = 12 RATIO 2235) SODIUM (test code = 2231) 139 MEQ/L POTASSIUM (test code = 2228) 3.9 MEQ/L CHLORIDE (test code = 2215) 100 MEQ/L CARBON DIOXIDE (test code = 22 MEQ/L 2206) CALCIUM (test code = 2209) 9.8 MG/DL PROTEIN, TOTAL (test code = 7.5 G/DL 2229) ALBUMIN (test code = 2201) 4.4 G/DL CALC GLOBULIN (test code = 3.1 G/DL 2240) CALC A/G RATIO (test code = 1.4 RATIO 2234) BILIRUBIN, TOTAL (test code = 0.3 MG/DL 7) ALKALINE PHOSPHATASE (test 116 U/L code = 2204) AST (test code = 2218) 20 U/L ALT (test code = 2219) 25 U/L HIV AB/AG COMBO RFLX [id number] 00:00:00 Test Item Value Reference Range Interpretation Comments HIV 1/2 4TH GEN, RFLX CONF (test NON-REACTIVE code = 3514) HIV AB/AG COMBO RFLX [id number] 00:00:00 Test Item Value Reference Range Interpretation Comments HIV 1/2 4TH GEN, RFLX CONF (test NON-REACTIVE code = 3514) ACUTE HEPATITIS [id number] 00:00:00 Test Item Value Reference Range Interpretation Comments HEPATITIS A IgM (test code = NON-REACTIVE 54526) HEPATITIS B CORE IgM (test code NON-REACTIVE = 4644) HEPATITIS B SURF AG (test code = NON-REACTIVE 2739) HEPATITIS C ANTIBODY (test code NON-REACTIVE = 4675) HCV INDEX (test code = 78286) 0.16 INTERPRETATION HEPATITIS A: (NOTE) (test code = 2552) INTERPRETATION HEPATITIS B: (NOTE) (test code = 58229) INTERPRETATION HEPATITIS C: (NOTE) (test code = 14131) ACUTE HEPATITIS [id number] 00:00:00 Test Item Value Reference Range Interpretation Comments HEPATITIS A IgM (test code = NON-REACTIVE 35521) HEPATITIS B CORE IgM (test code NON-REACTIVE = 4644) HEPATITIS B SURF AG (test code = NON-REACTIVE 2739) HEPATITIS C ANTIBODY (test code NON-REACTIVE = 4675) HCV INDEX (test code = 08371) 0.16 INTERPRETATION HEPATITIS A: (NOTE) (test code = 2552) INTERPRETATION HEPATITIS B: (NOTE) (test code = 75542) INTERPRETATION HEPATITIS C: (NOTE) (test code = 59168) GC AND CHLAMYDIA, AMPLIFIED, [id number] 00:00:00 Test Item Value Reference Range Interpretation Comments GONORRHEA, TMA (test code = 91854) NEGATIVE CHLAMYDIA, TMA (test code = 43485) NEGATIVE GC AND CHLAMYDIA, AMPLIFIED, [id number] 00:00:00 Test Item Value Reference Range Interpretation Comments GONORRHEA, TMA (test code = 44494) NEGATIVE CHLAMYDIA, TMA (test code = 89954) NEGATIVE [id number] 00:00:00 Test Item Value Reference Range Interpretation Comments RPR RESULT (test code = NON-REACTIVE 3501) RPR TITER (test code = 3500) NOT INDIC. TITER [id number] 00:00:00 Test Item Value Reference Range Interpretation Comments RPR RESULT (test code = NON-REACTIVE 3501) RPR TITER (test code = 3500) NOT INDIC. TITER [id number] 00:00:00 Test Item Value Reference Range Interpretation Comments RPR RESULT (test code = NON-REACTIVE 3501) RPR TITER (test code = 3500) NOT INDIC. TITER CT/NG, TMA, URINE [ADDED]2018-01-02 00:00:00 Test Item Value Reference Range Interpretation Comments GONORRHEA, TMA (test code = 66784) NEGATIVE CHLAMYDIA, TMA (test code = 80123) NEGATIVE CT/NG, TMA, URINE [ADDED]2018-01-02 00:00:00 Test Item Value Reference Range Interpretation Comments GONORRHEA, TMA (test code = 10451) NEGATIVE CHLAMYDIA, TMA (test code = 35323) NEGATIVE CT/NG, TMA, URINE [ADDED]2018-01-02 00:00:00 Test Item Value Reference Range Interpretation Comments GONORRHEA, TMA (test code = 27393) NEGATIVE CHLAMYDIA, TMA (test code = 05394) NEGATIVE CT/NG, TMA, URINE [ADDED]2018-01-02 00:00:00 Test Item Value Reference Range Interpretation Comments GONORRHEA, TMA (test code = 57342) NEGATIVE CHLAMYDIA, TMA (test code = 38669) NEGATIVE CBC W/AUTO DIFF WITH PLATELETS [ADDED]2018-01-02 00:00:00 Test Item Value Reference Range Interpretation Comments WBC (test code = 1001) 9.2 K/UL RBC (test code = 1002) 4.31 M/UL HEMOGLOBIN (test code = 1003) 11.9 G/DL HEMATOCRIT (test code = 1004) 36.1 % MCV (test code = 1005) 83.8 fL MCH (test code = 1006) 27.6 PG MCHC (test code = 1007) 33.0 G/DL RDW (test code = 1038) 15.2 % NEUTROPHILS (test code = 1008) 64.2 % LYMPHOCYTES (test code = 1010) 26.8 % MONOCYTES (test code = 1011) 6.1 % EOSINOPHILS (test code = 1012) 2.4 % BASOPHILS (test code = 1013) 0.5 % PLATELET COUNT (test code = 1015) 288 K/UL CBC W/AUTO DIFF WITH PLATELETS [ADDED]2018-01-02 00:00:00 Test Item Value Reference Range Interpretation Comments WBC (test code = 1001) 9.2 K/UL RBC (test code = 1002) 4.31 M/UL HEMOGLOBIN (test code = 1003) 11.9 G/DL HEMATOCRIT (test code = 1004) 36.1 % MCV (test code = 1005) 83.8 fL MCH (test code = 1006) 27.6 PG MCHC (test code = 1007) 33.0 G/DL RDW (test code = 1038) 15.2 % NEUTROPHILS (test code = 1008) 64.2 % LYMPHOCYTES (test code = 1010) 26.8 % MONOCYTES (test code = 1011) 6.1 % EOSINOPHILS (test code = 1012) 2.4 % BASOPHILS (test code = 1013) 0.5 % PLATELET COUNT (test code = 1015) 288 K/UL CBC W/AUTO DIFF WITH PLATELETS [ADDED]2018-01-02 00:00:00 Test Item Value Reference Range Interpretation Comments WBC (test code = 1001) 9.2 K/UL RBC (test code = 1002) 4.31 M/UL HEMOGLOBIN (test code = 1003) 11.9 G/DL HEMATOCRIT (test code = 1004) 36.1 % MCV (test code = 1005) 83.8 fL MCH (test code = 1006) 27.6 PG MCHC (test code = 1007) 33.0 G/DL RDW (test code = 1038) 15.2 % NEUTROPHILS (test code = 1008) 64.2 % LYMPHOCYTES (test code = 1010) 26.8 % MONOCYTES (test code = 1011) 6.1 % EOSINOPHILS (test code = 1012) 2.4 % BASOPHILS (test code = 1013) 0.5 % PLATELET COUNT (test code = 1015) 288 K/UL COMPREHENSIVE METABOLIC PANEL [ADDED]2018-01-02 00:00:00 Test Item Value Reference Range Interpretation Comments GLUCOSE (test code = 2217) 94 MG/DL BUN (test code = 2208) 17 MG/DL CREATININE (test code = 2214) 1.45 MG/DL eGFR AMER. (test code 57 ML/MIN/1.73 = 77558) eGFR NON- AMER. (test 50 ML/MIN/1.73 code = 42231) CALC BUN/CREAT (test code = 12 RATIO 2235) SODIUM (test code = 2231) 139 MEQ/L POTASSIUM (test code = 2228) 4.1 MEQ/L CHLORIDE (test code = 2215) 103 MEQ/L CARBON DIOXIDE (test code = 25 MEQ/L 2205) CALCIUM (test code = 2209) 9.3 MG/DL PROTEIN, TOTAL (test code = 7.0 G/DL 2228) ALBUMIN (test code = 2201) 4.4 G/DL CALC GLOBULIN (test code = 2.6 G/DL 2240) CALC A/G RATIO (test code = 1.7 RATIO 2234) BILIRUBIN, TOTAL (test code = 0.2 MG/DL 2206) ALKALINE PHOSPHATASE (test 92 U/L code = 2204) AST (test code = 2218) 16 U/L ALT (test code = 2219) 20 U/L COMPREHENSIVE METABOLIC PANEL [ADDED]2018-01-02 00:00:00 Test Item Value Reference Range Interpretation Comments GLUCOSE (test code = 2217) 94 MG/DL BUN (test code = 2208) 17 MG/DL CREATININE (test code = 2214) 1.45 MG/DL eGFR AMER. (test code 57 ML/MIN/1.73 = 39750) eGFR NON- AMER. (test 50 ML/MIN/1.73 code = 19492) CALC BUN/CREAT (test code = 12 RATIO 2235) SODIUM (test code = 2231) 139 MEQ/L POTASSIUM (test code = 2228) 4.1 MEQ/L CHLORIDE (test code = 2215) 103 MEQ/L CARBON DIOXIDE (test code = 25 MEQ/L 2205) CALCIUM (test code = 2209) 9.3 MG/DL PROTEIN, TOTAL (test code = 7.0 G/DL 2228) ALBUMIN (test code = 2201) 4.4 G/DL CALC GLOBULIN (test code = 2.6 G/DL 2240) CALC A/G RATIO (test code = 1.7 RATIO 2234) BILIRUBIN, TOTAL (test code = 0.2 MG/DL 2206) ALKALINE PHOSPHATASE (test 92 U/L code = 2204) AST (test code = 2218) 16 U/L ALT (test code = 2219) 20 U/L CBC W/AUTO DIFF WITH PLATELETS [ADDED]2018-01-02 00:00:00 Test Item Value Reference Range Interpretation Comments WBC (test code = 1001) 9.2 K/UL RBC (test code = 1002) 4.31 M/UL HEMOGLOBIN (test code = 1003) 11.9 G/DL HEMATOCRIT (test code = 1004) 36.1 % MCV (test code = 1005) 83.8 fL MCH (test code = 1006) 27.6 PG MCHC (test code = 1007) 33.0 G/DL RDW (test code = 1038) 15.2 % NEUTROPHILS (test code = 1008) 64.2 % LYMPHOCYTES (test code = 1010) 26.8 % MONOCYTES (test code = 1011) 6.1 % EOSINOPHILS (test code = 1012) 2.4 % BASOPHILS (test code = 1013) 0.5 % PLATELET COUNT (test code = 1015) 288 K/UL CBC W/AUTO DIFF WITH PLATELETS [ADDED]2018-01-02 00:00:00 Test Item Value Reference Range Interpretation Comments WBC (test code = 1001) 9.2 K/UL RBC (test code = 1002) 4.31 M/UL HEMOGLOBIN (test code = 1003) 11.9 G/DL HEMATOCRIT (test code = 1004) 36.1 % MCV (test code = 1005) 83.8 fL MCH (test code = 1006) 27.6 PG MCHC (test code = 1007) 33.0 G/DL RDW (test code = 1038) 15.2 % NEUTROPHILS (test code = 1008) 64.2 % LYMPHOCYTES (test code = 1010) 26.8 % MONOCYTES (test code = 1011) 6.1 % EOSINOPHILS (test code = 1012) 2.4 % BASOPHILS (test code = 1013) 0.5 % PLATELET COUNT (test code = 1015) 288 K/UL CBC W/AUTO DIFF WITH PLATELETS [ADDED]2018-01-02 00:00:00 Test Item Value Reference Range Interpretation Comments WBC (test code = 1001) 9.2 K/UL RBC (test code = 1002) 4.31 M/UL HEMOGLOBIN (test code = 1003) 11.9 G/DL HEMATOCRIT (test code = 1004) 36.1 % MCV (test code = 1005) 83.8 fL MCH (test code = 1006) 27.6 PG MCHC (test code = 1007) 33.0 G/DL RDW (test code = 1038) 15.2 % NEUTROPHILS (test code = 1008) 64.2 % LYMPHOCYTES (test code = 1010) 26.8 % MONOCYTES (test code = 1011) 6.1 % EOSINOPHILS (test code = 1012) 2.4 % BASOPHILS (test code = 1013) 0.5 % PLATELET COUNT (test code = 1015) 288 K/UL COMPREHENSIVE METABOLIC PANEL [ADDED]2018-01-02 00:00:00 Test Item Value Reference Range Interpretation Comments GLUCOSE (test code = 2217) 94 MG/DL BUN (test code = 2208) 17 MG/DL CREATININE (test code = 2214) 1.45 MG/DL eGFR AMER. (test code 57 ML/MIN/1.73 = 11411) eGFR NON- AMER. (test 50 ML/MIN/1.73 code = 31932) CALC BUN/CREAT (test code = 12 RATIO 2235) SODIUM (test code = 2231) 139 MEQ/L POTASSIUM (test code = 2228) 4.1 MEQ/L CHLORIDE (test code = 2215) 103 MEQ/L CARBON DIOXIDE (test code = 25 MEQ/L 2206) CALCIUM (test code = 2209) 9.3 MG/DL PROTEIN, TOTAL (test code = 7.0 G/DL 222) ALBUMIN (test code = 2201) 4.4 G/DL CALC GLOBULIN (test code = 2.6 G/DL 2240) CALC A/G RATIO (test code = 1.7 RATIO 2234) BILIRUBIN, TOTAL (test code = 0.2 MG/DL 2207) ALKALINE PHOSPHATASE (test 92 U/L code = 2204) AST (test code = 2218) 16 U/L ALT (test code = 2219) 20 U/L COMPREHENSIVE METABOLIC PANEL [ADDED]2018-01-02 00:00:00 Test Item Value Reference Range Interpretation Comments GLUCOSE (test code = 2217) 94 MG/DL BUN (test code = 2208) 17 MG/DL CREATININE (test code = 2214) 1.45 MG/DL eGFR AMER. (test code 57 ML/MIN/1.73 = 32484) eGFR NON- AMER. (test 50 ML/MIN/1.73 code = 59990) CALC BUN/CREAT (test code = 12 RATIO 2235) SODIUM (test code = 2231) 139 MEQ/L POTASSIUM (test code = 2228) 4.1 MEQ/L CHLORIDE (test code = 2215) 103 MEQ/L CARBON DIOXIDE (test code = 25 MEQ/L 2205) CALCIUM (test code = 2209) 9.3 MG/DL PROTEIN, TOTAL (test code = 7.0 G/DL 2228) ALBUMIN (test code = 2201) 4.4 G/DL CALC GLOBULIN (test code = 2.6 G/DL 2239) CALC A/G RATIO (test code = 1.7 RATIO 2233) BILIRUBIN, TOTAL (test code = 0.2 MG/DL 2206) ALKALINE PHOSPHATASE (test 92 U/L code = 220) AST (test code = 2218) 16 U/L ALT (test code = 2219) 20 U/L GC AND CHLAMYDIA, AMPLIFIED, [id number] 00:00:00 Test Item Value Reference Range Interpretation Comments GONORRHEA, TMA (test code = 93370) NEGATIVE CHLAMYDIA, TMA (test code = 80865) NEGATIVE GC AND CHLAMYDIA, AMPLIFIED, [id number] 00:00:00 Test Item Value Reference Range Interpretation Comments GONORRHEA, TMA (test code = 52015) NEGATIVE CHLAMYDIA, TMA (test code = 55064) NEGATIVE GC AND CHLAMYDIA, AMPLIFIED, [id number] 00:00:00 Test Item Value Reference Range Interpretation Comments GONORRHEA, TMA (test code = 37864) NEGATIVE CHLAMYDIA, TMA (test code = 31176) NEGATIVE GC AND CHLAMYDIA, AMPLIFIED, [id number] 00:00:00 Test Item Value Reference Range Interpretation Comments GONORRHEA, TMA (test code = 31160) NEGATIVE CHLAMYDIA, TMA (test code = 92978) NEGATIVE CBC W/AUTO [id number] 00:00:00 Test Item Value Reference Range Interpretation Comments WBC (test code = 1001) 8.7 K/UL RBC (test code = 1002) 4.41 M/UL HEMOGLOBIN (test code = 1003) 12.0 G/DL HEMATOCRIT (test code = 1004) 36.9 % MCV (test code = 1005) 83.7 fL MCH (test code = 1006) 27.2 PG MCHC (test code = 1007) 32.5 G/DL RDW (test code = 1038) 15.2 % NEUTROPHILS (test code = 1008) 63.2 % LYMPHOCYTES (test code = 1010) 28.3 % MONOCYTES (test code = 1011) 5.7 % EOSINOPHILS (test code = 1012) 2.5 % BASOPHILS (test code = 1013) 0.3 % PLATELET COUNT (test code = 1015) 335 K/UL CBC W/AUTO [id number] 00:00:00 Test Item Value Reference Range Interpretation Comments WBC (test code = 1001) 8.7 K/UL RBC (test code = 1002) 4.41 M/UL HEMOGLOBIN (test code = 1003) 12.0 G/DL HEMATOCRIT (test code = 1004) 36.9 % MCV (test code = 1005) 83.7 fL MCH (test code = 1006) 27.2 PG MCHC (test code = 1007) 32.5 G/DL RDW (test code = 1038) 15.2 % NEUTROPHILS (test code = 1008) 63.2 % LYMPHOCYTES (test code = 1010) 28.3 % MONOCYTES (test code = 1011) 5.7 % EOSINOPHILS (test code = 1012) 2.5 % BASOPHILS (test code = 1013) 0.3 % PLATELET COUNT (test code = 1015) 335 K/UL CBC W/AUTO [id number] 00:00:00 Test Item Value Reference Range Interpretation Comments WBC (test code = 1001) 8.7 K/UL RBC (test code = 1002) 4.41 M/UL HEMOGLOBIN (test code = 1003) 12.0 G/DL HEMATOCRIT (test code = 1004) 36.9 % MCV (test code = 1005) 83.7 fL MCH (test code = 1006) 27.2 PG MCHC (test code = 1007) 32.5 G/DL RDW (test code = 1038) 15.2 % NEUTROPHILS (test code = 1008) 63.2 % LYMPHOCYTES (test code = 1010) 28.3 % MONOCYTES (test code = 1011) 5.7 % EOSINOPHILS (test code = 1012) 2.5 % BASOPHILS (test code = 1013) 0.3 % PLATELET COUNT (test code = 1015) 335 K/UL CBC W/AUTO [id number] 00:00:00 Test Item Value Reference Range Interpretation Comments WBC (test code = 1001) 8.7 K/UL RBC (test code = 1002) 4.41 M/UL HEMOGLOBIN (test code = 1003) 12.0 G/DL HEMATOCRIT (test code = 1004) 36.9 % MCV (test code = 1005) 83.7 fL MCH (test code = 1006) 27.2 PG MCHC (test code = 1007) 32.5 G/DL RDW (test code = 1038) 15.2 % NEUTROPHILS (test code = 1008) 63.2 % LYMPHOCYTES (test code = 1010) 28.3 % MONOCYTES (test code = 1011) 5.7 % EOSINOPHILS (test code = 1012) 2.5 % BASOPHILS (test code = 1013) 0.3 % PLATELET COUNT (test code = 1015) 335 K/UL CBC W/AUTO [id number] 00:00:00 Test Item Value Reference Range Interpretation Comments WBC (test code = 1001) 8.7 K/UL RBC (test code = 1002) 4.41 M/UL HEMOGLOBIN (test code = 1003) 12.0 G/DL HEMATOCRIT (test code = 1004) 36.9 % MCV (test code = 1005) 83.7 fL MCH (test code = 1006) 27.2 PG MCHC (test code = 1007) 32.5 G/DL RDW (test code = 1038) 15.2 % NEUTROPHILS (test code = 1008) 63.2 % LYMPHOCYTES (test code = 1010) 28.3 % MONOCYTES (test code = 1011) 5.7 % EOSINOPHILS (test code = 1012) 2.5 % BASOPHILS (test code = 1013) 0.3 % PLATELET COUNT (test code = 1015) 335 K/UL HEMOGLOBIN [id number] 00:00:00 Test Item Value Reference Range Interpretation Comments HEMOGLOBIN A1c (test code = 45472) 5.6 % HEMOGLOBIN [id number] 00:00:00 Test Item Value Reference Range Interpretation Comments HEMOGLOBIN A1c (test code = 60786) 5.6 % HEMOGLOBIN [id number] 00:00:00 Test Item Value Reference Range Interpretation Comments HEMOGLOBIN A1c (test code = 39622) 5.6 % CBC W/AUTO [id number] 00:00:00 Test Item Value Reference Range Interpretation Comments WBC (test code = 1001) 8.7 K/UL RBC (test code = 1002) 4.41 M/UL HEMOGLOBIN (test code = 1003) 12.0 G/DL HEMATOCRIT (test code = 1004) 36.9 % MCV (test code = 1005) 83.7 fL MCH (test code = 1006) 27.2 PG MCHC (test code = 1007) 32.5 G/DL RDW (test code = 1038) 15.2 % NEUTROPHILS (test code = 1008) 63.2 % LYMPHOCYTES (test code = 1010) 28.3 % MONOCYTES (test code = 1011) 5.7 % EOSINOPHILS (test code = 1012) 2.5 % BASOPHILS (test code = 1013) 0.3 % PLATELET COUNT (test code = 1015) 335 K/UL COMPREHENSIVE METABOLIC [id number] 00:00:00 Test Item Value Reference Range Interpretation Comments GLUCOSE (test code = 2217) 86 MG/DL BUN (test code = 2208) 11 MG/DL CREATININE (test code = 2214) 1.01 MG/DL eGFR AMER. (test code 90 ML/MIN/1.73 = 95144) eGFR NON- AMER. (test 77 ML/MIN/1.73 code = 52827) CALC BUN/CREAT (test code = 11 RATIO 2235) SODIUM (test code = 2231) 141 MEQ/L POTASSIUM (test code = 2228) 4.0 MEQ/L CHLORIDE (test code = 2215) 102 MEQ/L CARBON DIOXIDE (test code = 26 MEQ/L 2206) CALCIUM (test code = 2209) 8.9 MG/DL PROTEIN, TOTAL (test code = 7.0 G/DL 2228) ALBUMIN (test code = 2201) 3.7 G/DL CALC GLOBULIN (test code = 3.3 G/DL 2240) CALC A/G RATIO (test code = 1.1 RATIO 2234) BILIRUBIN, TOTAL (test code = 0.2 MG/DL 2206) ALKALINE PHOSPHATASE (test 120 U/L code = 2204) AST (test code = 2218) 19 U/L ALT (test code = 2219) 21 U/L COMPREHENSIVE METABOLIC [id number] 00:00:00 Test Item Value Reference Range Interpretation Comments GLUCOSE (test code = 2217) 86 MG/DL BUN (test code = 2208) 11 MG/DL CREATININE (test code = 2214) 1.01 MG/DL eGFR AMER. (test code 90 ML/MIN/1.73 = 87479) eGFR NON- AMER. (test 77 ML/MIN/1.73 code = 45407) CALC BUN/CREAT (test code = 11 RATIO 2235) SODIUM (test code = 2231) 141 MEQ/L POTASSIUM (test code = 2228) 4.0 MEQ/L CHLORIDE (test code = 2215) 102 MEQ/L CARBON DIOXIDE (test code = 26 MEQ/L 2205) CALCIUM (test code = 2209) 8.9 MG/DL PROTEIN, TOTAL (test code = 7.0 G/DL 2228) ALBUMIN (test code = 220) 3.7 G/DL CALC GLOBULIN (test code = 3.3 G/DL 2239) CALC A/G RATIO (test code = 1.1 RATIO 2234) BILIRUBIN, TOTAL (test code = 0.2 MG/DL 2206) ALKALINE PHOSPHATASE (test 120 U/L code = 2204) AST (test code = 2218) 19 U/L ALT (test code = 2219) 21 U/L LIPID [id number] 00:00:00 Test Item Value Reference Range Interpretation Comments CHOLESTEROL (test code = 2210) 175 MG/DL TRIGLYCERIDES (test code = 2232) 109 MG/DL HDL CHOLESTEROL (test code = 2220) 69 MG/DL CALC LDL CHOL (test code = 2237) 84 MG/DL RISK RATIO LDL/HDL (test code = 1.22 RATIO 2238) LIPID [id number] 00:00:00 Test Item Value Reference Range Interpretation Comments CHOLESTEROL (test code = 2210) 175 MG/DL TRIGLYCERIDES (test code = 2232) 109 MG/DL HDL CHOLESTEROL (test code = 2220) 69 MG/DL CALC LDL CHOL (test code = 2237) 84 MG/DL RISK RATIO LDL/HDL (test code = 1.22 RATIO 2238) [id number] 00:00:00 Test Item Value Reference Range Interpretation Comments TSH (test code = 2821) 1.160 UIU/ML [id number] 00:00:00 Test Item Value Reference Range Interpretation Comments TSH (test code = 2821) 1.160 UIU/ML [id number] 00:00:00 Test Item Value Reference Range Interpretation Comments TSH (test code = 2821) 1.160 UIU/ML HIV AB/AG COMBO RFLX [id number] 00:00:00 Test Item Value Reference Range Interpretation Comments HIV 1/2 4TH GEN, RFLX CONF (test NON-REACTIVE code = 3514) HIV AB/AG COMBO RFLX [id number] 00:00:00 Test Item Value Reference Range Interpretation Comments HIV 1/2 4TH GEN, RFLX CONF (test NON-REACTIVE code = 3514) ACUTE HEPATITIS [id number] 00:00:00 Test Item Value Reference Range Interpretation Comments HEPATITIS A IgM (test code = NON-REACTIVE 67437) HEPATITIS B CORE IgM (test code NON-REACTIVE = 4644) HEPATITIS B SURF AG (test code = NON-REACTIVE 2739) HEPATITIS C ANTIBODY (test code NON-REACTIVE = 4675) INTERPRETATION HEPATITIS A: (NOTE) (test code = 2552) INTERPRETATION HEPATITIS B: (NOTE) (test code = 29656) INTERPRETATION HEPATITIS C: (NOTE) (test code = 14090) ACUTE HEPATITIS [id number] 00:00:00 Test Item Value Reference Range Interpretation Comments HEPATITIS A IgM (test code = NON-REACTIVE 96349) HEPATITIS B CORE IgM (test code NON-REACTIVE = 4644) HEPATITIS B SURF AG (test code = NON-REACTIVE 2739) HEPATITIS C ANTIBODY (test code NON-REACTIVE = 4675) INTERPRETATION HEPATITIS A: (NOTE) (test code = 2552) INTERPRETATION HEPATITIS B: (NOTE) (test code = 16261) INTERPRETATION HEPATITIS C: (NOTE) (test code = 03093) [id number] 00:00:00 Test Item Value Reference Range Interpretation Comments RPR RESULT (test code = NON-REACTIVE 3501) RPR TITER (test code = 3500) NOT INDIC. TITER [id number] 00:00:00 Test Item Value Reference Range Interpretation Comments RPR RESULT (test code = NON-REACTIVE 3501) RPR TITER (test code = 3500) NOT INDIC. TITER [id number] 00:00:00 Test Item Value Reference Range Interpretation Comments RPR RESULT (test code = NON-REACTIVE 3501) RPR TITER (test code = 3500) NOT INDIC. TITER VAGINAL PATHOGENS DNA [id number] 00:00:00 Test Item Value Reference Range Interpretation Comments JESSICA SPECIES (test code = ) NEGATIVE G. VAGINALIS (test code = 63347) POSITIVE T. VAGINALIS (test code = ) NEGATIVE VAGINAL PATHOGENS DNA [id number] 00:00:00 Test Item Value Reference Range Interpretation Comments JESSICA SPECIES (test code = ) NEGATIVE G. VAGINALIS (test code = 72442) POSITIVE T. VAGINALIS (test code = 28496) NEGATIVE HEMOGLOBIN [id number] 00:00:00 Test Item Value Reference Range Interpretation Comments HEMOGLOBIN A1c (test code = 07361) 5.6 % HEMOGLOBIN [id number] 00:00:00 Test Item Value Reference Range Interpretation Comments HEMOGLOBIN A1c (test code = 64099) 5.6 % HEMOGLOBIN [id number] 00:00:00 Test Item Value Reference Range Interpretation Comments HEMOGLOBIN A1c (test code = 29556) 5.6 % COMPREHENSIVE METABOLIC [id number] 00:00:00 Test Item Value Reference Range Interpretation Comments GLUCOSE (test code = 2217) 86 MG/DL BUN (test code = 2208) 11 MG/DL CREATININE (test code = 2214) 1.01 MG/DL eGFR AMER. (test code 90 ML/MIN/1.73 = 08543) eGFR NON- AMER. (test 77 ML/MIN/1.73 code = 52185) CALC BUN/CREAT (test code = 11 RATIO 2235) SODIUM (test code = 2231) 141 MEQ/L POTASSIUM (test code = 2228) 4.0 MEQ/L CHLORIDE (test code = 2215) 102 MEQ/L CARBON DIOXIDE (test code = 26 MEQ/L 2205) CALCIUM (test code = 2209) 8.9 MG/DL PROTEIN, TOTAL (test code = 7.0 G/DL 2228) ALBUMIN (test code = 2201) 3.7 G/DL CALC GLOBULIN (test code = 3.3 G/DL 2240) CALC A/G RATIO (test code = 1.1 RATIO 2234) BILIRUBIN, TOTAL (test code = 0.2 MG/DL 2206) ALKALINE PHOSPHATASE (test 120 U/L code = 2204) AST (test code = 2218) 19 U/L ALT (test code = 2219) 21 U/L COMPREHENSIVE METABOLIC [id number] 00:00:00 Test Item Value Reference Range Interpretation Comments GLUCOSE (test code = 2217) 86 MG/DL BUN (test code = 2208) 11 MG/DL CREATININE (test code = 2214) 1.01 MG/DL eGFR AMER. (test code 90 ML/MIN/1.73 = 87145) eGFR NON- AMER. (test 77 ML/MIN/1.73 code = 28096) CALC BUN/CREAT (test code = 11 RATIO 2235) SODIUM (test code = 2231) 141 MEQ/L POTASSIUM (test code = 2228) 4.0 MEQ/L CHLORIDE (test code = 2215) 102 MEQ/L CARBON DIOXIDE (test code = 26 MEQ/L 2205) CALCIUM (test code = 2209) 8.9 MG/DL PROTEIN, TOTAL (test code = 7.0 G/DL 2228) ALBUMIN (test code = 2201) 3.7 G/DL CALC GLOBULIN (test code = 3.3 G/DL 2239) CALC A/G RATIO (test code = 1.1 RATIO 2234) BILIRUBIN, TOTAL (test code = 0.2 MG/DL 2206) ALKALINE PHOSPHATASE (test 120 U/L code = 2204) AST (test code = 2218) 19 U/L ALT (test code = 2219) 21 U/L LIPID [id number] 00:00:00 Test Item Value Reference Range Interpretation Comments CHOLESTEROL (test code = 2210) 175 MG/DL TRIGLYCERIDES (test code = 2232) 109 MG/DL HDL CHOLESTEROL (test code = 2220) 69 MG/DL CALC LDL CHOL (test code = 2237) 84 MG/DL RISK RATIO LDL/HDL (test code = 1.22 RATIO 2238) LIPID [id number] 00:00:00 Test Item Value Reference Range Interpretation Comments CHOLESTEROL (test code = 2210) 175 MG/DL TRIGLYCERIDES (test code = 2232) 109 MG/DL HDL CHOLESTEROL (test code = 2220) 69 MG/DL CALC LDL CHOL (test code = 2237) 84 MG/DL RISK RATIO LDL/HDL (test code = 1.22 RATIO 2238) [id number] 00:00:00 Test Item Value Reference Range Interpretation Comments TSH (test code = 2821) 1.160 UIU/ML [id number] 00:00:00 Test Item Value Reference Range Interpretation Comments TSH (test code = 2821) 1.160 UIU/ML [id number] 00:00:00 Test Item Value Reference Range Interpretation Comments TSH (test code = 2821) 1.160 UIU/ML HIV AB/AG COMBO RFLX [id number] 00:00:00 Test Item Value Reference Range Interpretation Comments HIV 1/2 4TH GEN, RFLX CONF (test NON-REACTIVE code = 3514) HIV AB/AG COMBO RFLX [id number] 00:00:00 Test Item Value Reference Range Interpretation Comments HIV 1/2 4TH GEN, RFLX CONF (test NON-REACTIVE code = 3514) ACUTE HEPATITIS [id number] 00:00:00 Test Item Value Reference Range Interpretation Comments HEPATITIS A IgM (test code = NON-REACTIVE 60231) HEPATITIS B CORE IgM (test code NON-REACTIVE = 4644) HEPATITIS B SURF AG (test code = NON-REACTIVE 2739) HEPATITIS C ANTIBODY (test code NON-REACTIVE = 4675) INTERPRETATION HEPATITIS A: (NOTE) (test code = 2552) INTERPRETATION HEPATITIS B: (NOTE) (test code = 25033) INTERPRETATION HEPATITIS C: (NOTE) (test code = 73972) ACUTE HEPATITIS [id number] 00:00:00 Test Item Value Reference Range Interpretation Comments HEPATITIS A IgM (test code = NON-REACTIVE 14059) HEPATITIS B CORE IgM (test code NON-REACTIVE = 4644) HEPATITIS B SURF AG (test code = NON-REACTIVE 2739) HEPATITIS C ANTIBODY (test code NON-REACTIVE = 4675) INTERPRETATION HEPATITIS A: (NOTE) (test code = 2552) INTERPRETATION HEPATITIS B: (NOTE) (test code = 82415) INTERPRETATION HEPATITIS C: (NOTE) (test code = 34213) [id number] 00:00:00 Test Item Value Reference Range Interpretation Comments RPR RESULT (test code = NON-REACTIVE 3501) RPR TITER (test code = 3500) NOT INDIC. TITER [id number] 00:00:00 Test Item Value Reference Range Interpretation Comments RPR RESULT (test code = NON-REACTIVE 3501) RPR TITER (test code = 3500) NOT INDIC. TITER [id number] 00:00:00 Test Item Value Reference Range Interpretation Comments RPR RESULT (test code = NON-REACTIVE 3501) RPR TITER (test code = 3500) NOT INDIC. TITER VAGINAL PATHOGENS DNA [id number] 00:00:00 Test Item Value Reference Range Interpretation Comments JESSICA SPECIES (test code = ) NEGATIVE G. VAGINALIS (test code = 00886) POSITIVE T. VAGINALIS (test code = 08698) NEGATIVE VAGINAL PATHOGENS DNA [id number] 00:00:00 Test Item Value Reference Range Interpretation Comments JESSICA SPECIES (test code = 15037) NEGATIVE G. VAGINALIS (test code = 03770) POSITIVE T. VAGINALIS (test code = 24363) NEGATIVE LIPID [id number] 00:00:00 Test Item Value Reference Range Interpretation Comments CHOLESTEROL (test code = 2210) 178 MG/DL TRIGLYCERIDES (test code = 2232) 73 MG/DL HDL CHOLESTEROL (test code = 2220) 78 MG/DL CALCULATED LDL CHOL (test code = 85 MG/DL 2237) RISK RATIO LDL/HDL (test code = 1.09 RATIO 2238) LIPID [id number] 00:00:00 Test Item Value Reference Range Interpretation Comments CHOLESTEROL (test code = 2210) 178 MG/DL TRIGLYCERIDES (test code = 2232) 73 MG/DL HDL CHOLESTEROL (test code = 2220) 78 MG/DL CALCULATED LDL CHOL (test code = 85 MG/DL 2237) RISK RATIO LDL/HDL (test code = 1.09 RATIO 2238) PAP TEST, THINPREP, [id number] 00:00:00 Test Item Value Reference Range Interpretation Comments SOURCE: (test code = A) 8001) Cervical/Endocervical SLIDES: (test code = 1 8011) LMP: (test code = 8021) 07/10/2015 SPECIMEN ADEQUACY: (test (NOTE) code = 27470) INTERPRETATION: (test NO EPITHELIAL code = 14714) ABNORMALITY SEE BELOW CLINIC OFFICE MANAGER: (test Amara Wilkins, code = 8101) CT(ASCP) PATHOLOGIST Noe Ohara INTERPRETATION BY: (test code = 8122) LOCATION: (test code = (NOTE) 63440) CPT: (test code = 8140) (NOTE) CBC W/AUTO [id number] 00:00:00 Test Item Value Reference Range Interpretation Comments WBC (test code = 1001) 7.7 K/UL RBC (test code = 1002) 4.48 M/UL HEMOGLOBIN (test code = 1003) 12.2 G/DL HEMATOCRIT (test code = 1004) 38.6 % MCV (test code = 1005) 86.2 fL MCH (test code = 1006) 27.2 PG MCHC (test code = 1007) 31.6 G/DL RDW (test code = 1038) 16.3 % NEUTROPHILS (test code = 1008) 58 % LYMPHOCYTES (test code = 1010) 32 % MONOCYTES (test code = 1011) 8 % EOSINOPHILS (test code = 1012) 1 % BASOPHILS (test code = 1013) % PLATELET COUNT (test code = 1015) 342 K/UL PAP TEST, THINPREP, [id number] 00:00:00 Test Item Value Reference Range Interpretation Comments SOURCE: (test code = A) 8001) Cervical/Endocervical SLIDES: (test code = 1 8011) LMP: (test code = 8021) 07/10/2015 SPECIMEN ADEQUACY: (test (NOTE) code = 50257) INTERPRETATION: (test NO EPITHELIAL code = 04485) ABNORMALITY SEE BELOW CLINIC OFFICE MANAGER: (test Amara Wilkins, code = 8101) CT(ASCP) PATHOLOGIST Noe Ohara INTERPRETATION BY: (test code = 8122) LOCATION: (test code = (NOTE) 85335) CPT: (test code = 8140) (NOTE) CBC W/AUTO [id number] 00:00:00 Test Item Value Reference Range Interpretation Comments WBC (test code = 1001) 7.7 K/UL RBC (test code = 1002) 4.48 M/UL HEMOGLOBIN (test code = 1003) 12.2 G/DL HEMATOCRIT (test code = 1004) 38.6 % MCV (test code = 1005) 86.2 fL MCH (test code = 1006) 27.2 PG MCHC (test code = 1007) 31.6 G/DL RDW (test code = 1038) 16.3 % NEUTROPHILS (test code = 1008) 58 % LYMPHOCYTES (test code = 1010) 32 % MONOCYTES (test code = 1011) 8 % EOSINOPHILS (test code = 1012) 1 % BASOPHILS (test code = 1013) % PLATELET COUNT (test code = 1015) 342 K/UL CBC W/AUTO [id number] 00:00:00 Test Item Value Reference Range Interpretation Comments WBC (test code = 1001) 7.7 K/UL RBC (test code = 1002) 4.48 M/UL HEMOGLOBIN (test code = 1003) 12.2 G/DL HEMATOCRIT (test code = 1004) 38.6 % MCV (test code = 1005) 86.2 fL MCH (test code = 1006) 27.2 PG MCHC (test code = 1007) 31.6 G/DL RDW (test code = 1038) 16.3 % NEUTROPHILS (test code = 1008) 58 % LYMPHOCYTES (test code = 1010) 32 % MONOCYTES (test code = 1011) 8 % EOSINOPHILS (test code = 1012) 1 % BASOPHILS (test code = 1013) % PLATELET COUNT (test code = 1015) 342 K/UL HEMOGLOBIN [id number] 00:00:00 Test Item Value Reference Range Interpretation Comments HEMOGLOBIN A1c (test code = 05216) 6.0 % HEMOGLOBIN [id number] 00:00:00 Test Item Value Reference Range Interpretation Comments HEMOGLOBIN A1c (test code = 80089) 6.0 % HEMOGLOBIN [id number] 00:00:00 Test Item Value Reference Range Interpretation Comments HEMOGLOBIN A1c (test code = 80970) 6.0 % HIV AB/AG COMBO RFLX [id number] 00:00:00 Test Item Value Reference Range Interpretation Comments HIV AB/AG COMBO RFLX CONF (test NON-REACTIVE code = 3514) HIV AB/AG COMBO RFLX [id number] 00:00:00 Test Item Value Reference Range Interpretation Comments HIV AB/AG COMBO RFLX CONF (test NON-REACTIVE code = 3514) [id number] 00:00:00 Test Item Value Reference Range Interpretation Comments RPR RESULT (test code = NON-REACTIVE 3501) RPR TITER (test code = 3500) NOT INDIC. TITER [id number] 00:00:00 Test Item Value Reference Range Interpretation Comments RPR RESULT (test code = NON-REACTIVE 3501) RPR TITER (test code = 3500) NOT INDIC. TITER [id number] 00:00:00 Test Item Value Reference Range Interpretation Comments RPR RESULT (test code = NON-REACTIVE 3501) RPR TITER (test code = 3500) NOT INDIC. TITER HEPATITIS B SURF [id number] 00:00:00 Test Item Value Reference Range Interpretation Comments HEPATITIS B SURF AG (test code = NON-REACTIVE 2739) HEPATITIS B SURF [id number] 00:00:00 Test Item Value Reference Range Interpretation Comments HEPATITIS B SURF AG (test code = NON-REACTIVE 2739) HEPATITIS B SURF [id number] 00:00:00 Test Item Value Reference Range Interpretation Comments HEPATITIS B SURF AG (test code = NON-REACTIVE 2739) HEPATITIS C REFLEX [id number] 00:00:00 Test Item Value Reference Range Interpretation Comments HEPATITIS C ANTIBODY (test code NON-REACTIVE = 4675) HEPATITIS C REFLEX [id number] 00:00:00 Test Item Value Reference Range Interpretation Comments HEPATITIS C ANTIBODY (test code NON-REACTIVE = 4675) RUBELLA ANTIBODY [id number] 00:00:00 Test Item Value Reference Range Interpretation Comments RUBELLA ANTIBODY SCREEN (test code = 20 IU/ML 4600) RUBELLA IgG INTERP (test code = REACTIVE 52919) RUBELLA ANTIBODY [id number] 00:00:00 Test Item Value Reference Range Interpretation Comments RUBELLA ANTIBODY SCREEN (test code = 20 IU/ML 4600) RUBELLA IgG INTERP (test code = REACTIVE 00824) LIPID [id number] 00:00:00 Test Item Value Reference Range Interpretation Comments CHOLESTEROL (test code = 2210) 178 MG/DL TRIGLYCERIDES (test code = 2232) 73 MG/DL HDL CHOLESTEROL (test code = 2220) 78 MG/DL CALCULATED LDL CHOL (test code = 85 MG/DL 2237) RISK RATIO LDL/HDL (test code = 1.09 RATIO 2238) LIPID [id number] 00:00:00 Test Item Value Reference Range Interpretation Comments CHOLESTEROL (test code = 2210) 178 MG/DL TRIGLYCERIDES (test code = 2232) 73 MG/DL HDL CHOLESTEROL (test code = 2220) 78 MG/DL CALCULATED LDL CHOL (test code = 85 MG/DL 2237) RISK RATIO LDL/HDL (test code = 1.09 RATIO 2238) PAP TEST, THINPREP, [id number] 00:00:00 Test Item Value Reference Range Interpretation Comments SOURCE: (test code = A) 8001) Cervical/Endocervical SLIDES: (test code = 1 8011) LMP: (test code = 8021) 07/10/2015 SPECIMEN ADEQUACY: (test (NOTE) code = 61679) INTERPRETATION: (test NO EPITHELIAL code = 70929) ABNORMALITY SEE BELOW CLINIC OFFICE MANAGER: (test Amara Alfredlashanda, code = 8101) CT(ASCP) PATHOLOGIST Noe Ohara INTERPRETATION BY: (test code = 8122) LOCATION: (test code = (NOTE) 44257) CPT: (test code = 8140) (NOTE) PAP TEST, THINPREP, [id number] 00:00:00 Test Item Value Reference Range Interpretation Comments SOURCE: (test code = A) 8001) Cervical/Endocervical SLIDES: (test code = 1 8011) LMP: (test code = 8021) 07/10/2015 SPECIMEN ADEQUACY: (test (NOTE) code = 27195) INTERPRETATION: (test NO EPITHELIAL code = 69441) ABNORMALITY SEE BELOW CLINIC OFFICE MANAGER: (test Amara Alfredlashanda, code = 8101) CT(ASCP) PATHOLOGIST Noe Ohara INTERPRETATION BY: (test code = 8122) LOCATION: (test code = (NOTE) 55427) CPT: (test code = 8140) (NOTE) CBC W/AUTO [id number] 00:00:00 Test Item Value Reference Range Interpretation Comments WBC (test code = 1001) 7.7 K/UL RBC (test code = 1002) 4.48 M/UL HEMOGLOBIN (test code = 1003) 12.2 G/DL HEMATOCRIT (test code = 1004) 38.6 % MCV (test code = 1005) 86.2 fL MCH (test code = 1006) 27.2 PG MCHC (test code = 1007) 31.6 G/DL RDW (test code = 1038) 16.3 % NEUTROPHILS (test code = 1008) 58 % LYMPHOCYTES (test code = 1010) 32 % MONOCYTES (test code = 1011) 8 % EOSINOPHILS (test code = 1012) 1 % BASOPHILS (test code = 1013) % PLATELET COUNT (test code = 1015) 342 K/UL CBC W/AUTO [id number] 00:00:00 Test Item Value Reference Range Interpretation Comments WBC (test code = 1001) 7.7 K/UL RBC (test code = 1002) 4.48 M/UL HEMOGLOBIN (test code = 1003) 12.2 G/DL HEMATOCRIT (test code = 1004) 38.6 % MCV (test code = 1005) 86.2 fL MCH (test code = 1006) 27.2 PG MCHC (test code = 1007) 31.6 G/DL RDW (test code = 1038) 16.3 % NEUTROPHILS (test code = 1008) 58 % LYMPHOCYTES (test code = 1010) 32 % MONOCYTES (test code = 1011) 8 % EOSINOPHILS (test code = 1012) 1 % BASOPHILS (test code = 1013) % PLATELET COUNT (test code = 1015) 342 K/UL CBC W/AUTO [id number] 00:00:00 Test Item Value Reference Range Interpretation Comments WBC (test code = 1001) 7.7 K/UL RBC (test code = 1002) 4.48 M/UL HEMOGLOBIN (test code = 1003) 12.2 G/DL HEMATOCRIT (test code = 1004) 38.6 % MCV (test code = 1005) 86.2 fL MCH (test code = 1006) 27.2 PG MCHC (test code = 1007) 31.6 G/DL RDW (test code = 1038) 16.3 % NEUTROPHILS (test code = 1008) 58 % LYMPHOCYTES (test code = 1010) 32 % MONOCYTES (test code = 1011) 8 % EOSINOPHILS (test code = 1012) 1 % BASOPHILS (test code = 1013) % PLATELET COUNT (test code = 1015) 342 K/UL HEMOGLOBIN [id number] 00:00:00 Test Item Value Reference Range Interpretation Comments HEMOGLOBIN A1c (test code = 59587) 6.0 % HEMOGLOBIN [id number] 00:00:00 Test Item Value Reference Range Interpretation Comments HEMOGLOBIN A1c (test code = 06544) 6.0 % HEMOGLOBIN [id number] 00:00:00 Test Item Value Reference Range Interpretation Comments HEMOGLOBIN A1c (test code = 06260) 6.0 % HIV AB/AG COMBO RFLX [id number] 00:00:00 Test Item Value Reference Range Interpretation Comments HIV AB/AG COMBO RFLX CONF (test NON-REACTIVE code = 3514) HIV AB/AG COMBO RFLX [id number] 00:00:00 Test Item Value Reference Range Interpretation Comments HIV AB/AG COMBO RFLX CONF (test NON-REACTIVE code = 3514) [id number] 00:00:00 Test Item Value Reference Range Interpretation Comments RPR RESULT (test code = NON-REACTIVE 3501) RPR TITER (test code = 3500) NOT INDIC. TITER [id number] 00:00:00 Test Item Value Reference Range Interpretation Comments RPR RESULT (test code = NON-REACTIVE 3501) RPR TITER (test code = 3500) NOT INDIC. TITER [id number] 00:00:00 Test Item Value Reference Range Interpretation Comments RPR RESULT (test code = NON-REACTIVE 3501) RPR TITER (test code = 3500) NOT INDIC. TITER HEPATITIS B SURF [id number] 00:00:00 Test Item Value Reference Range Interpretation Comments HEPATITIS B SURF AG (test code = NON-REACTIVE 2739) HEPATITIS B SURF [id number] 00:00:00 Test Item Value Reference Range Interpretation Comments HEPATITIS B SURF AG (test code = NON-REACTIVE 2739) HEPATITIS B SURF [id number] 00:00:00 Test Item Value Reference Range Interpretation Comments HEPATITIS B SURF AG (test code = NON-REACTIVE 2739) HEPATITIS C REFLEX [id number] 00:00:00 Test Item Value Reference Range Interpretation Comments HEPATITIS C ANTIBODY (test code NON-REACTIVE = 4675) HEPATITIS C REFLEX [id number] 00:00:00 Test Item Value Reference Range Interpretation Comments HEPATITIS C ANTIBODY (test code NON-REACTIVE = 4675) RUBELLA ANTIBODY [id number] 00:00:00 Test Item Value Reference Range Interpretation Comments RUBELLA ANTIBODY SCREEN (test code = 20 IU/ML 4600) RUBELLA IgG INTERP (test code = REACTIVE 15935) RUBELLA ANTIBODY [id number] 00:00:00 Test Item Value Reference Range Interpretation Comments RUBELLA ANTIBODY SCREEN (test code = 20 IU/ML 4600) RUBELLA IgG INTERP (test code = REACTIVE 84743) GC AND CHLAMYDIA AMPLIFIED, [id number] 00:00:00 Test Item Value Reference Range Interpretation Comments GONORRHEA, TMA (test code = 28376) NEGATIVE CHLAMYDIA, TMA (test code = 39327) NEGATIVE GC AND CHLAMYDIA AMPLIFIED, [id number] 00:00:00 Test Item Value Reference Range Interpretation Comments GONORRHEA, TMA (test code = 63537) NEGATIVE CHLAMYDIA, TMA (test code = 96409) NEGATIVE GC AND CHLAMYDIA AMPLIFIED, [id number] 00:00:00 Test Item Value Reference Range Interpretation Comments GONORRHEA, TMA (test code = 55062) NEGATIVE CHLAMYDIA, TMA (test code = 61943) NEGATIVE GC AND CHLAMYDIA AMPLIFIED, [id number] 00:00:00 Test Item Value Reference Range Interpretation Comments GONORRHEA, TMA (test code = 77006) NEGATIVE CHLAMYDIA, TMA (test code = 87977) NEGATIVE
[2022-09-14] MEDS ORDERED: cloNIDine HCL 0.1 MG TAB ONE (18:45)
--- NOTE | 2022-09-14 19:05 | RAD REPORT ---
[facility] CLINICAL HISTORY: SWELLING COMPARISON: Chest Single View dated 12/28/2021; Chest Single View dated 04/04/2020; Chest Single View dated 09/22/2018; Chest Single View dated 05/01/2018 TECHNIQUE: Portable AP view of the chest. FINDINGS: Central interstitial prominence and fluffy opacities, progressive since the prior exam. No pneumothorax or effusion. The cardiomediastinal contours are unremarkable. IMPRESSION: Findings suggestive of central congestion or pulmonary edema as above.
[2022-09-14 19:25] LABS: Absolute Lymphocytes (CBC) 2.1 K/uL (0.7-4.9); Hematocrit 39.4 % (36.0-45.0); Lymphocytes % 25.7 % (15.3-44.8); MPV 10.6 fL (7.6-11.3); RBC Red Blood Cell Count 4.43 M/uL (3.86-4.86)
[2022-09-14 19:26] LABS: Protime INR 1.03
[2022-09-14] MEDS ORDERED: NIFEdipine 10 MG CAP ONE (19:28)
[2022-09-14 19:32] LABS: Magnesium 2.2 mg/dL (1.6-2.4); Potassium 3.6 mEq/L (3.5-5.1); Troponin High Sensitivity 6.4 pg/mL (<58.9)
--- NOTE | 2022-09-14 19:53 | RAD REPORT ---
EXAM DESCRIPTION: US - Extrem Venous W Compress Jc - 09/14/2022 7:34 pm CLINICAL HISTORY: Swelling COMPARISON: None. TECHNIQUE: Real-time sonographic evaluation of the bilateral lower extremity deep venous systems was performed. FINDINGS: Normal compressibility, flow augmentation, phasic flow and spontaneous flow is identified in both the left and right lower extremity deep venous systems. No intraluminal filling defects seen. Subcutaneous edema along the left lower leg. IMPRESSION: No evidence of DVT in either lower extremity.
--- NOTE | 2022-09-14 20:09 | RAD REPORT ---
EXAM DESCRIPTION: CT - Head Brain Wo Cont - 09/14/2022 7:50 pm CLINICAL HISTORY: HEADACHE COMPARISON: No comparisons TECHNIQUE: Noncontrast head CT images ad were obtained without IV contrast. Multiplanar reformats we re generated and reviewed. All CT scans are performed using dose optimization technique as appropriate and may include automated exposure control or mA/KV adjustment according to patient size. FINDINGS: No intracranial hemorrhage, mass, or edema. Midline structures are unremarkable. Normal ventricular caliber for age. Rhoades-white matter differentiation is preserved, without evidence of acute infarct. No abnormal extra- axial fluid collections. Mastoid air cells and visualized portions of the paranasal sinuses are clear. No acute bony findings. IMPRESSION: No evidence of an acute intracranial process.
[2022-09-14] MEDS ORDERED: ACETAMINOPHEN 500 MG TAB ONE (20:29)
--- NOTE | 2022-09-14 20:38 | ER ---
Nurse's Notes [facility] Name: Deep Deng Age: 32 yrs Sex: Female : 1990 Arrival Date: 09/14/2022 Time: 17:31 Bed 2 Private MD: Diagnosis: Hypertensive heart disease without heart failure;Headache Presentation: 09/14 18:06 Chief complaint: Patient states: "I have been out of my BP meds for about a month." hb Reports bilateral lower leg swelling and headache. Coronavirus screen: At this time, the client does not indicate any symptoms associated with coronavirus-19. Ebola Screen: No symptoms or risks identified at this time. Initial Sepsis Screen: Does the patient meet any 2 criteria? No. Patient's initial sepsis screen is negative. Does the patient have a suspected source of infection? No. Patient's initial sepsis screen is negative. Risk Assessment: Do you want to hurt yourself or someone else? Patient reports no desire to harm self or others. Onset of symptoms was September 14, 2022. 18:06 Method Of Arrival: Ambulatory hb 18:06 Acuity: CHRISTIAN 2 hb Historical: - Allergies: 18:08 No Known Allergies; hb - Home Meds: 18:08 metoprolol tartrate 25 mg Oral tab once [Active]; nifedipine 30 mg Oral tr24 [Active]; hb - PMHx: 18:08 Hypertension; hb - PSHx: 18:08 None; hb - Immunization history:: Adult Immunizations up to date. - Social history:: Smoking status: Patient denies any tobacco usage or history of. Screenin:02 [facility] ED Fall Risk Assessment (Adult) History of falling in the last 3 months, vg1 including since admission No falls in past 3 months (0 pts). Abuse screen: Denies threats or abuse. Denies injuries from another. Nutritional screening: No deficits noted. Tuberculosis screening: No symptoms or risk factors identified. Assessment: 19:02 General: Appears in no apparent distress. uncomfortable, Behavior is cooperative. Pain: vg1 Complains of pain in chest Pain does not radiate. Pain currently is 5 out of 10 on a pain scale. Pain began x 1 week. Neuro: Level of Consciousness is awake, alert, obeys commands, Oriented to person, place, time, situation, Reports headache. Cardiovascular: Patient's skin is warm and dry. Respiratory: Airway is patent Respiratory effort is even, unlabored. GI: No signs and/or symptoms were reported involving the gastrointestinal system. : No signs and/or symptoms were reported regarding the genitourinary system. EENT: No signs and/or symptoms were reported regarding the EENT system. Derm: Skin is pink, warm \\T\\ dry. Musculoskeletal: Circulation, motion, and sensation intact. 19:31 Reassessment: Ultrasound at bedside. mb9 20:04 Reassessment: No changes from previously documented assessment. Patient and/or family mb9 updated on plan of care and expected duration. Pain level reassessed. Patient is alert, oriented x 3, equal unlabored respirations, skin warm/dry/pink. 20:29 General:. Pain:. Neuro: Reports headache. lg3 Vital Signs: 18:06 BP 216 / 127; Pulse 85; Resp 16; Temp 98.4(O); Pulse Ox 100% ; Weight 136.08 kg; Height hb 5 ft. 8 in. ; Pain 5/10; 19:02 BP 189 / 123; Pulse 76; Resp 13; Pulse Ox 96% on R/A; vg1 20:03 BP 142 / 81; Pulse 93; Resp 22; Pulse Ox 100% on R/A; mb9 20:42 BP 143 / 80; Pulse 75; Resp 20; Pulse Ox 98% on R/A; lg3 18:06 Body Mass Index 45.61 (136.08 kg, 172.72 cm) hb 18:06 Pain Scale: Adult hb ED Course: 17:35 Patient arrived in ED. kj1 17:41 Zafar Wen PA is PHCP. cp 17:41 Fernando Guerra DO is Attending Physician. cp 18:08 Triage completed. hb 18:08 Arm band placed on. hb 18:32 Berenice Ritchie, RN is Primary Nurse. vg1 18:53 XRAY Chest (1 view) In Process Unspecified. EDMS 18:57 No provider procedures requiring assistance completed. Inserted saline lock: 20 gauge vg1 in left antecubital area, using aseptic technique. Blood collected. 19:02 Patient has correct armband on for positive identification. Placed in gown. Bed in low vg1 position. Call light in reach. Side rails up X 1. Client placed on continuous cardiac and pulse oximetry monitoring. NIBP monitoring applied. 19:36 US Extremity Venous W Compression Jc In Process Unspecified. EDMS 19:51 CT Head Brain wo Cont: htn In Process Unspecified. EDMS 20:43 IV discontinued, intact, bleeding controlled, No redness/swelling at site. Pressure lg3 dressing applied. Administered Medications: 18:40 Drug: cloNIDine PO 0.2 mg Route: PO; vg1 19:26 Follow up: Response: No adverse reaction mb9 19:26 Drug: NIFEdipine PO 30 mg Route: PO; mb9 20:04 Follow up: Response: No adverse reaction mb9 20:30 Drug: Acetaminophen PO 1000 mg Route: PO; lg3 20:42 Follow up: Response: No adverse reaction lg3 Medication: 19:02 VIS not applicable for this client. vg1 Outcome: 20:38 Discharge ordered by . cp 20:43 Discharged to home ambulatory. lg3 20:43 Condition: stable 20:43 Discharge instructions given to patient, Instructed on discharge instructions, follow up and referral plans. medication usage, Demonstrated understanding of instructions, follow-up care, medications, Prescriptions given X 2. 20:43 Patient left the ED. lg3 Signatures: Dispatcher [employer] EDMS Zafar Wen PA PA cp Kyleigh Boyd RN RN hb Hayley Morris kj1 Lillian Otto RN RN lg3 Berenice Ritchie RN RN vg1 Marcia Arias RN RN mb9 Corrections: (The following items were deleted from the chart) 18:08 18:06 Acuity: CHRISTIAN 3 hb hb 18:08 18:08 PSHx: Unable to Obtain; hb hb 19:06 19:02 Neuro: Level of Consciousness is awake, alert, obeys commands, Oriented to vg1 person, place, time, situation, vg1
--- NOTE | 2022-09-14 20:38 | EDPHYS ---
Physician Documentation [facility] Name: Deep Deng Age: 32 yrs Sex: Female : 1990 Arrival Date: 09/14/2022 Time: 17:31 Bed 2 Private MD: ED Physician Fernando Guerra HPI: 09/14 18:00 This 32 yrs old Black Female presents to ER via Ambulatory with complaints of Blood cp Pressure Problem, Leg Swelling. 18:00 The patient presents with swelling. The complaints affect the right leg and left leg. cp 18:00 Context: resulted from an unknown cause. Onset: The symptoms/episode began/occurred cp gradually. Associated signs and symptoms: Pertinent positives: chest pain, headache, Pertinent negatives fever, warmth, erythema. The patient has elevated blood pressure and discovered this at home, HX of HTN. Ran out of blood pressure medication couple months ago. Historical: - Allergies: 18:08 No Known Allergies; hb - Home Meds: 18:08 metoprolol tartrate 25 mg Oral tab once [Active]; nifedipine 30 mg Oral tr24 [Active]; hb - PMHx: 18:08 Hypertension; hb - PSHx: 18:08 None; hb - Immunization history:: Adult Immunizations up to date. - Social history:: Smoking status: Patient denies any tobacco usage or history of. ROS: 18:05 Constitutional: Negative for body aches, chills, fever, poor PO intake. cp 18:05 Cardiovascular: Positive for edema, Negative for chest pain, palpitations. cp 18:05 Respiratory: Negative for cough, shortness of breath, wheezing. 18:05 Abdomen/GI: Negative for abdominal pain, vomiting, diarrhea, constipation. cp 18:05 Eyes: Negative for injury, pain, redness, and discharge. cp 18:05 ENT: Negative for drainage from ear(s), ear pain, sore throat, difficulty swallowing, difficulty handling secretions. 18:05 : Negative for urinary symptoms. 18:05 Neuro: Positive for headache, Negative for altered mental status, dizziness, numbness, syncope, weakness. 18:05 All other systems are negative. Exam: 18:10 Constitutional: The patient appears in no acute distress, alert, awake, cp non-diaphoretic, non-toxic, well developed, well nourished, obese. 18:10 Head/Face: Normocephalic, atraumatic. cp 18:10 Eyes: Periorbital structures: appear normal, Pupils: equal, round, and reactive to light and accomodation, Extraocular movements: intact throughout, Conjunctiva: normal, no exudate, no injection, Sclera: no appreciated abnormality, Lids and lashes: appear normal, bilaterally. 18:10 ENT: External ear(s): are unremarkable, Nose: is normal, Mouth: Lips: moist, Oral mucosa: moist, Posterior pharynx: is normal, airway is patent, no erythema, no exudate. 18:10 Neck: ROM/movement: is normal, is supple, without pain, no range of motions limitations, no meningismus, no nuchal rigidity. 18:10 Chest/axilla: Inspection: normal. 18:10 Cardiovascular: Rate: normal, Rhythm: regular, Edema: pedal edema, that is mild, ankle edema, that is mild. 18:10 Respiratory: the patient does not display signs of respiratory distress, Respirations: normal, no use of accessory muscles, no retractions, labored breathing, is not present, Breath sounds: are clear throughout, no decreased breath sounds, no stridor, no wheezing. 18:10 Abdomen/GI: Inspection: obese Palpation: abdomen is soft and non-tender, in all quadrants. 18:10 Skin: no rash present. 18:10 Neuro: Orientation: to person, place \T\ time. Mentation: is normal, Cerebellar function: is grossly normal, Motor: moves all fours, strength is normal, Sensation: is normal, Gait: is steady, at a normal pace, without difficulty. Vital Signs: 18:06 BP 216 / 127; Pulse 85; Resp 16; Temp 98.4(O); Pulse Ox 100% ; Weight 136.08 kg; Height hb 5 ft. 8 in. ; Pain 5/10; 19:02 BP 189 / 123; Pulse 76; Resp 13; Pulse Ox 96% on R/A; vg1 20:03 BP 142 / 81; Pulse 93; Resp 22; Pulse Ox 100% on R/A; mb9 20:42 BP 143 / 80; Pulse 75; Resp 20; Pulse Ox 98% on R/A; lg3 18:06 Body Mass Index 45.61 (136.08 kg, 172.72 cm) hb 18:06 Pain Scale: Adult hb MDM: 18:11 Patient medically screened. cp 20:37 Data reviewed: vital signs, nurses notes, lab test result(s), EKG, radiologic studies, cp CT scan, doppler, plain films. 20:37 Differential diagnosis: hypertensive crisis, Malignant HTN, CVA, intracerebral cp hemorrhage. Consideration of Admission/Observation Escalation of care including admission/observation considered. I considered the following discharge prescriptions or medication management in the emergency department Medications were administered in the Emergency Department. See MAR. Care significantly affected by the following chronic conditions: Hypertension, Obesity. Counseling: I had a detailed discussion with the patient and/or guardian regarding: the historical points, exam findings, and any diagnostic results supporting the discharge/admit diagnosis, lab results, radiology results, the need for outpatient follow up, a family practitioner, to return to the emergency department if symptoms worsen or persist or if there are any questions or concerns that arise at home. Response to treatment: the patient's symptoms have markedly improved after treatment, and as a result, I will discharge patient. 09/14 17:54 Order name: Basic Metabolic Panel; Complete Time: 19:53 cp 09/14 19:53 Interpretation: Normal except: CRE 1.19; GFR 63. cp 09/14 17:54 Order name: CBC with Diff; Complete Time: 19:32 cp 09/14 19:33 Interpretation: Normal except. cp 09/14 17:54 Order name: Magnesium; Complete Time: 19:53 cp 09/14 17:54 Order name: NT PRO-BNP; Complete Time: 19:53 cp 09/14 20:08 Interpretation: Reviewed. cp 09/14 17:54 Order name: PT-INR; Complete Time: 19:32 cp 09/14 17:54 Order name: Troponin HS; Complete Time: 19:53 cp 09/14 19:53 Interpretation: Reviewed. cp 09/14 17:54 Order name: XRAY Chest (1 view); Complete Time: 19:07 cp 09/14 19:10 Interpretation: Report review. cp 09/14 17:54 Order name: US Extremity Venous W Compression Jc; Complete Time: 20:08 cp 09/14 20:08 Interpretation: Report reviewed. cp 09/14 18:14 Order name: CT Head Brain wo Cont: htn; Complete Time: 20:17 cp 09/14 20:17 Interpretation: Report reviewed. 09/14 17:54 Order name: EKG; Complete Time: 17:55 cp 09/14 17:54 Order name: Cardiac monitoring; Complete Time: 19:01 09/14 17:54 Order name: EKG - Nurse/Tech; Complete Time: 19:01 09/14 17:54 Order name: IV Saline Lock; Complete Time: 19:01 09/14 17:54 Order name: Labs collected and sent; Complete Time: 19:01 09/14 17:54 Order name: O2 Per Protocol; Complete Time: 18:35 cp 09/14 17:54 Order name: O2 Sat Monitoring; Complete Time: 18:35 cp Administered Medications: 18:40 Drug: cloNIDine PO 0.2 mg Route: PO; vg1 19:26 Follow up: Response: No adverse reaction mb9 19:26 Drug: NIFEdipine PO 30 mg Route: PO; mb9 20:04 Follow up: Response: No adverse reaction mb9 20:30 Drug: Acetaminophen PO 1000 mg Route: PO; lg3 20:42 Follow up: Response: No adverse reaction lg3 Disposition: 09/15 19:48 Co-signature as Attending Physician, Fernando SAUNDERS was immediately available on-site ms3 in the Emergency Department for consultation in the care of the patient. Disposition Summary: 09/14/22 20:38 Discharge Ordered Location: Home cp Problem: chronic cp Symptoms: have improved cp Condition: Stable cp Diagnosis - Hypertensive heart disease without heart failure cp - Headache cp Followup: cp - With: Private Physician - When: 2 - 3 days - Reason: Recheck today's complaints Discharge Instructions: - Discharge Summary Sheet cp - General Headache Without Cause cp - Hypertension, Adult cp - Aspirin and Your Heart cp - Form - Blood Pressure Record Sheet cp - How to Take Your Blood Pressure cp Forms: - Medication Reconciliation Form cp - Thank You Letter cp - Antibiotic Education cp - Prescription Opioid Use cp Prescriptions: - nifedipine 30 mg Oral Tablet, Extended Release 24 hr - take 1 tablet by ORAL route once; 30 tablet; Refills: 0, Product Selection cp Permitted - Metoprolol Tartrate 25 mg Oral Tablet - take 1 tablet by ORAL route 2 times per day with a meal; 30 tablet; Refills: 0, cp Product Selection Permitted Signatures: Dispatcher [employer] [facility] Zafar Wen PA PA cp Baxter, Heather RN RN hb Lillian Otto, RN RN lg3 Berenice Ritchie RN RN vg1 Fernando Guerra DO DO ms3 Marcia Arias RN RN mb9 Corrections: (The following items were deleted from the chart) 09/14 18:08 18:08 PSHx: Unable to Obtain; hb hb
[2022-09-14 21:21] VITALS: TEMP 98.4
[2022-09-14 21:34] VITALS: BP 143/80; O2SAT 98
--- NOTE | 2022-09-15 13:26 | EKG ---
Test Date: 2022-09-14 Test Time: 18:46:17 Hand Laster: FRANCIA MEASUREMENT RESULTS: Intervals: Rate: 74 GA: 152 QRSD: 84 QT: 404 QTc: 448 Haswell: P: 61 GA: 152 QRS: 27 T: 25 INTERPRETIVE STATEMENTS: Normal sinus rhythm with sinus arrhythmia Normal ECG Compared to ECG 12/28/2021 14:59:55 No significant changes Electronically Signed On 09-15-22 13:25:09 CDT by Russ Stahl
== END 2022-09-14 20:43 | disposition home or self-care (01) ==
LOC: ER 17:31
DX: I11.9 Hypertensive heart disease without heart failure (principal); R51.9 Headache, unspecified; I10 Essential (primary) hypertension; M79.89 Other specified soft tissue disorders
CPT/HCPCS: 36415; 70450; 71045; 80048; 83735; 83880; 84484; 85025; 85610; 93005; 93970; 99284

== ENCOUNTER 2023-09-24 08:36 | Emergency (ER) | payer SELFPAY ==
[2023-09-24] MEDS ORDERED: ONDANSETRON 4 MG/2 ML VIAL ONE (08:57)
[2023-09-24] MEDS ORDERED: MORPHINE 2 MG/ML SYR ONE (08:57)
[2023-09-24] MEDS ORDERED: KETOROLAC 30 MG/ML INJ ONE (08:57)
[2023-09-24 09:05] LABS: Hematocrit 41.6 % (36.0-45.0); Hemoglobin 13.4 g/dL (12.0-15.0); MCH 28.1 pg (27.0-35.0); MCHC 32.2 g/dL (32.0-36.0); MCV 87.3 fL (80-100); MPV 9.7 fL (7.6-11.3); Neutrophils % 69.1 % (41.7-73.7); Platelets 331 thou/uL (152-406); RBC Red Blood Cell Count 4.77 M/uL (3.86-4.86); Red Cell Distribution Width 15.7 % (12.1-15.2)
[2023-09-24 09:06] LABS: Absolute Basophils 0.1 K/uL (0-0.5); Absolute Eosinophils 0.2 K/uL (0-0.5); Absolute Lymphocytes (CBC) 2.4 K/uL (0.7-4.9); Absolute Monocytes 0.8 K/uL (0.1-1.3); Absolute Neutrophil 7.7 K/uL (1.8-8.0); Basophils % 0.8 % (0-1.3); Eosinophils % 1.4 % (0-4.4); Lymphocytes % 21.5 % (15.3-44.8); Monocytes % 7.2 % (3.3-12.3); Nucleated Red Blood Cells % 0.1 % (0-0)
[2023-09-24 09:17] LABS: Anion Gap 7.4 mEq/L (5.0-15.0); Potassium 3.4 mEq/L (3.5-5.1)
[2023-09-24 09:17] LABS: Specific Gravity 1.013 (1.005-1.030)
--- NOTE | 2023-09-24 09:57 | RAD REPORT ---
EXAM DESCRIPTION: CT - FC CLINICAL HISTORY: FACIAL PAIN Facial pain and swelling COMPARISON: No comparisons TECHNIQUE: Axial 2 mm thick images of the face were obtained with sagittal and coronal reconstructio n images. All CT scans are performed using dose optimization technique as appropriate and may include automated exposure control or mA/KV adjustment according to patient size. FINDINGS: Significant eroded posterior right maxillary molar. Several additional eroded right maxill anand premolars with periapical abscess present. Inflammatory phlegmon is seen along the anterior aspect of the right face and right cheek. Small odon togenic abscess suspected adjacent to the eroded right maxillary posterior measuring about 8 mm in th ickness. Mildly enlarged lymph nodes are seen in the neck likely related to reactive adenopathy. IMPRESSION: Several right posterior maxillary dental erosions with small periapical abscess suspecte d.Small adjacent odontogenic soft tissue abscesses with significant surrounding inflammation and swel ling.
--- NOTE | 2023-09-24 10:15 | EDPHYS ---
Physician Documentation [facility] Name: Deep Deng Age: 33 yrs Sex: Female : 1990 Arrival Date: 09/24/2023 Time: 08:36 Bed 7 Private MD: ED Physician Blas Patel HPI: 09/23 08:50 This 33 yrs old Black Female presents to ER via Unassigned with complaints of ec2 Toothache, Facial Swelling. 08:50 Patient arrives today for evaluation of right facial swelling. Complaining of right ec2 upper dental pain. Increased facial swelling to the right cheek. General pain with p.o. intake.. Historical: - Allergies: 08:51 No Known Allergies; hb - Home Meds: 08:51 metoprolol tartrate 25 mg Oral tab once [Active]; nifedipine 30 mg Oral tr24 daily hb [Active]; - PMHx: 08:51 Hypertension; hb - PSHx: 08:51 None; hb - Immunization history:: Adult Immunizations up to date. - Infectious Disease History:: Denies. - Social history:: Smoking status: Patient denies any tobacco usage or history of. ROS: 08:50 Constitutional: as per hpi ec2 Exam: 08:50 Constitutional: GEN: NAD Head: atraumatic, right cheek with facial swelling, TTP, no ec2 obvious fluctuance appreciated. Eyes: EOMI Ears: External ears are normal. CV: regular rate LUNGS: no respiratory distress ABD: non-distended SKIN: no evidence of rashes MSK: no evidence of trauma NEURO: moves all extremities equally Vital Signs: 08:48 BP 223 / 140; Pulse 89; Resp 16; Temp 99.4(O); Pulse Ox 96% on R/A; Weight 136.08 kg; hb Height 5 ft. 8 in. ; Pain 10/10; 09:54 BP 173 / 117; Pulse 76; Resp 18 S; Pulse Ox 98% on R/A; as6 08:48 Body Mass Index 45.61 (136.08 kg, 172.72 cm) hb 08:48 Pain Scale: Adult hb MDM: 08:38 Patient medically screened. ec2 08:50 Data reviewed: vital signs. ED course: Patient arrives today for evaluation of right ec2 cheek swelling. Examination remarkable for facial swelling as above. Will obtain lab work, CT imaging. Evaluating for maxillary abscess, dental abscess, facial cellulitis. . 09:02 ED course: Of note patient is hypertensive, patient has not taken medications for her ec2 hypertension over several weeks. . 09:20 ED course: Metabolic profile shows slight hypokalemia, appropriate renal function. ec2 Negative testing. Pending CT imaging . 10:05 ED course: CT shows odontogenic abscess, small, will treat with antibiotics, will ec2 discharge home and have the patient follow-up with her dentist. Return precautions given. Additionally patient's hypertension had improved after treating the patient's pain. Will discharge home as the patient follow-up expectantly with her primary care doctor . 10:15 ED course: MDM: Differential diagnosis as documented above in ED course; All lab tests ec2 ordered and reviewed as documented above; Parenteral controlled substances: Yes; . 10:28 ED course: Patient all of her hypertensive medications, I will give her a 15-day ec2 prescription for her to medications that she provided the dosage and frequency for her.. 09/23 08:49 Order name: CBC with Diff; Complete Time: 09:07 ec2 09/23 08:49 Order name: BMP; Complete Time: 09:20 ec2 09/23 08:49 Order name: Test, Urine; Complete Time: 09:20 ec2 09/23 08:49 Order name: CT Maxillofacial W/cont; Complete Time: 10:03 ec2 Administered Medications: 09:09 Drug: Ketorolac IVP 15 mg IVP once Route: IVP; Site: right antecubital; as6 09:24 Follow up: Response: No adverse reaction ko1 09:09 Drug: morphine IVP or IV 2 mg IVP once over 4 mins Route: IVP; Infused Over: 4 mins; as6 Site: right antecubital; 09:24 Follow up: Response: No adverse reaction ko1 09:09 Drug: Ondansetron IVP 4 mg IVP once; over 2 minutes Route: IVP; Site: right antecubital;as6 09:24 Follow up: Response: No adverse reaction ko1 10:24 Drug: Amoxicillin-Clavulanate PO 875 mg PO once Route: PO; ko1 10:34 Follow up: Response: No adverse reaction as6 Disposition Summary: 09/24/23 10:15 Discharge Ordered Notes: Location: Home ec2 Condition: Stable ec2 Diagnosis - Dental caries, unspecified ec2 - Facial Infection ec2 Followup: ec2 - With: Private Physician - When: - Reason: Re-evaluation by your physician Discharge Instructions: - Discharge Summary Sheet ko1 - Dental Abscess ec2 Forms: - Work release form ko1 - Medication Reconciliation Form ec2 - Antibiotic Education ec2 - Prescription Opioid Use ec2 - Patient Portal Instructions ec2 - Leadership Thank You Letter ec2 Prescriptions: - acetaminophen-codeine 300-15 mg Oral tablet - take 1 tablet ORAL route every 6 hours as needed for pain; 15 tablet; Refills: ec2 0, Product Selection Permitted - nifedipine 30 mg Oral tablet, extended release - take 1 tablet ORAL route daily; 15 tablet; Refills: 0, Product Selection ec2 Permitted - Augmentin 875-125 mg Oral Tablet - take 1 tablet ORAL route every 12 hours for 10 days; 20 tablet; Refills: 0, ec2 Product Selection Permitted - Metoprolol Tartrate 25 mg Oral tablet - take 1 tablet ORAL route 2 times per day with a meal; 30 tablet; Refills: 0, ec2 Product Selection Permitted Signatures: Dispatcher [employer] EDFL Kyleigh Boyd RN RN Vimal Rocha RN RN as6 Yocasta Christensen RN RN ko1 Blas Patel MD MD ec2 Corrections: (The following items were deleted from the chart) 08:49 08:49 CBC+H.LAB.BRZ ordered. EDMS EDMS 08:49 08:49 BASIC METABOLIC PANEL+C.LAB.BRZ ordered. EDFL EDMS 08:49 08:49 Test, Urine+UC.LAB.BRZ ordered. EDFL EDMS 08:49 08:49 Maxillofacial W/Cont+CT.RAD.BRZ ordered. EDFL EDMS 08:56 08:50 ED course: Patient arrives today for evaluation of right cheek swelling. ec2 Examination remarkable for facial swelling as above. Will obtain lab work, CT imaging. Evaluating for maxillary abscess. Dental abscess.. ec2
--- NOTE | 2023-09-24 10:15 | ER ---
Nurse's Notes [facility] Name: Deep Deng Age: 33 yrs Sex: Female : 1990 Arrival Date: 09/24/2023 Time: 08:36 Bed 7 Private MD: Diagnosis: Dental caries, unspecified;Facial Infection Presentation: 09/23 08:48 Chief complaint: Right upper molar pain x 3 days, right facial swelling upon waking hb today. Coronavirus screen: At this time, the client does not indicate any symptoms associated with coronavirus-19. Ebola Screen: No symptoms or risks identified at this time. Initial Sepsis Screen: Does the patient meet any 2 criteria? No. Patient's initial sepsis screen is negative. Does the patient have a suspected source of infection? No. Patient's initial sepsis screen is negative. Risk Assessment: Do you want to hurt yourself or someone else? Patient reports no desire to harm self or others. Onset of symptoms was September 24, 2023. 08:48 Method Of Arrival: Ambulatory hb 08:48 Acuity: CHRISTIAN 3 hb Historical: - Allergies: 08:51 No Known Allergies; hb - Home Meds: 08:51 metoprolol tartrate 25 mg Oral tab once [Active]; nifedipine 30 mg Oral tr24 daily hb [Active]; - PMHx: 08:51 Hypertension; hb - PSHx: 08:51 None; hb - Immunization history:: Adult Immunizations up to date. - Infectious Disease History:: Denies. - Social history:: Smoking status: Patient denies any tobacco usage or history of. Screenin:53 [facility] ED Fall Risk Assessment (Adult) History of falling in the last 3 months, ko1 including since admission No falls in past 3 months (0 pts) Confusion or Disorientation No (0 pts) Intoxicated or Sedated No (0 pts) Impaired Gait No (0 pts) Mobility Assist Device Used No (0 pt) Altered Elimination No (0 pt) Score/Fall Risk Level 0 - 2 = Low Risk Oriented to surroundings, Maintained a safe environment, Educated pt \T\ family on fall prevention, incl call for assistance when getting out of bed, Assessed \T\ reinforced patient's understanding of fall precautions, Provided non-skid footwear, Hourly rounding (assess needs \T\ fall precautionary measures) done, Used ambulatory aids as needed (educated on \T\ assisted with), Used gait belt as appropriate. Abuse screen: Denies threats or abuse. Denies injuries from another. Nutritional screening: No deficits noted. Tuberculosis screening: No symptoms or risk factors identified. Assessment: 08:53 General: Appears in no apparent distress. uncomfortable, Behavior is calm, cooperative, ko1 appropriate for age. Pain: Complains of pain in right cheek and right jaw. Neuro: No deficits noted. Cardiovascular: No deficits noted. Respiratory: No deficits noted. GI: No deficits noted. : No deficits noted. EENT: swelling to right side of face. Reports pain in right zygomatic area and right cheek. Derm: No deficits noted. Musculoskeletal: No deficits noted. 09:53 Reassessment: Patient appears in no apparent distress at this time. Patient and/or as6 family updated on plan of care and expected duration. Pain level reassessed. Patient is alert, oriented x 3, equal unlabored respirations, skin warm/dry/pink. Patient states feeling better. Vital Signs: 08:48 BP 223 / 140; Pulse 89; Resp 16; Temp 99.4(O); Pulse Ox 96% on R/A; Weight 136.08 kg; hb Height 5 ft. 8 in. ; Pain 10/10; 09:54 BP 173 / 117; Pulse 76; Resp 18 S; Pulse Ox 98% on R/A; as6 08:48 Body Mass Index 45.61 (136.08 kg, 172.72 cm) hb 08:48 Pain Scale: Adult hb ED Course: 08:38 Patient arrived in ED. rg4 08:38 Blas Patel MD is Attending Physician. ec2 08:50 Vimal Rocha, ALISON is Primary Nurse. as6 08:51 Triage completed. hb 08:53 Patient has correct armband on for positive identification. Bed in low position. Call ko1 light in reach. Side rails up X 1. Provided Education on: labs, tests, call light. Pulse ox on. NIBP on. Door closed. Noise minimized. Lights dimmed. Warm blanket given. Pillow given. Assisted to bathroom. 08:53 No provider procedures requiring assistance completed. ko1 08:54 Arm band placed on. hb 08:59 Inserted saline lock: 20 gauge in right antecubital area, using aseptic technique. zm Blood collected. 08:59 Initial lab(s) drawn, by me, sent to lab. zm 08:59 BMP Sent. zm 08:59 CBC with Diff Sent. zm 09:09 Test, Urine Sent. ko1 09:40 CT Maxillofacial W/cont In Process Unspecified. EDMS 10:34 IV discontinued, intact, bleeding controlled, No redness/swelling at site. Pressure as6 dressing applied. Administered Medications: 09:09 Drug: Ketorolac IVP 15 mg IVP once Route: IVP; Site: right antecubital; as6 09:24 Follow up: Response: No adverse reaction ko1 09:09 Drug: morphine IVP or IV 2 mg IVP once over 4 mins Route: IVP; Infused Over: 4 mins; as6 Site: right antecubital; 09:24 Follow up: Response: No adverse reaction ko1 09:09 Drug: Ondansetron IVP 4 mg IVP once; over 2 minutes Route: IVP; Site: right antecubital;as6 09:24 Follow up: Response: No adverse reaction ko1 10:24 Drug: Amoxicillin-Clavulanate PO 875 mg PO once Route: PO; ko1 10:34 Follow up: Response: No adverse reaction as6 Medication: 08:53 VIS not applicable for this client. ko1 Outcome: 10:15 Discharge ordered by . ec2 10:34 Discharged to home ambulatory, as6 10:34 Condition: stable 10:34 Discharge instructions given to patient, Instructed on discharge instructions, follow up and referral plans. medication usage, Demonstrated understanding of instructions, follow-up care, medications, 10:34 Patient left the ED. as6 10:35 Prescriptions given X 4, ko1 Signatures: Dispatcher [employer] EDMS Kyleigh Boyd RN RN hb Garcia, Rubi rg4 Vimal Rocha RN RN as6 Gypsy Solares Kathy, RN RN ko1 Blas Patel MD MD ec2 Corrections: (The following items were deleted from the chart) 08:53 08:48 BP 223 / 140; Pulse 89bpm; Resp 16bpm; Pulse Ox 96% RA; Temp 99.4F Oral; Pain hb 10/10, Adult; hb
[2023-09-24] MEDS ORDERED: AMOX/K CLAV 875 MG TAB ONE (10:21)
[2023-09-24 10:43] VITALS: BP 173/117; TEMP 99.4; O2SAT 98
== END 2023-09-24 10:34 | disposition home or self-care (01) ==
LOC: ER 08:36
DX: K02.9 Dental caries, unspecified (principal); L08.9 Local infection of the skin and subcutaneous tissue, unspecified
CPT/HCPCS: 36415; 70487; 80048; 81025; 85025; 96374; 96375; 99284; J2270; J2405; Q9967